=== PATIENT | male | born 1945 | race Caucasian/White ===

== ENCOUNTER 2017-11-10 06:25 | Inpatient (IN) | payer MEDICARE ==
[~2017-11-10] VITALS: Ht 182.9 cm; Wt 77.1 kg
[~2017-11-10 06:25] MED LIST: ALBU3IS INH; ALBU90OI INH; ALBU90OI6 INH; ALBU90OI61 INH; ASPI325 PO; AZIT250 PO; Duoneb 2.5-0.5 M3 ML INH; FLUT44OIA INH; GENT.3OPSA OS; HYDACE5 PO; HYDCOR2.5C PR; LOPE2C PO; Monodox100 MG PO; PRED20 PO; PROCODE120 PO; PROM25 PO; Percocet 5-3251 EACH PO; Phenergan Vc-C120 ML PO; Prednisone20 MG PO; RXTRAM50 PO; SERT25 PO; SULTRIDS PO; TRAACE PO; Ventolin5 MG/1 ML INH
[2017-11-10 07:01] LABS: BASOPHILS ABSOLUTE AUTO 0.04 K/mm3 (0.00-0.23); BASOPHILS PERCENT AUTO 1 % (0-2); EOSINOPHILS PERCENT AUTO 2 % (0-6); Hematocrit 46.7 % (37.0-53.0); Hemoglobin 14.6 g/dL (13.5-17.5); IMMATURE GRAN ABSOLUTE AUTO 0.03 K/mm3 (0.00-0.10); IMMATURE GRAN PERCENT AUTO 0 % (0-1); LYMPHOCYTES ABSOLUTE AUTO 1.52 K/mm3 (0.84-5.20); LYMPHOCYTES PERCENT AUTO 19 % (21-46); MONOCYTES PERCENT AUTO 12 % (4-13); Mean Corpuscular HGB 27.3 pg (26.0-34.0); Mean Corpuscular HGB Conc 31.3 g/dL (31.5-36.5); Mean Corpuscular Volume 87 fL (80-100); Mean Platelet Volume 10.6 fL (9.1-12.4); NEUTROPHILS ABSOLUTE AUTO 5.38 K/mm3 (1.96-9.15); NEUTROPHILS PERCENT AUTO 66 % (41-73); Platelet Count 183 K/mm3 (150-400); RDW Coefficient Variation 15.8 % (11.7-14.2); RDW Standard Deviation 50.4 fL (35.1-46.3); Red Blood Cell Count 5.35 M/mm3 (4.30-5.90); White Blood Cell Count 8.17 K/mm3 (4.00-11.30)
[2017-11-10 07:19] LABS: Alanine Aminotransfer (ALT/SGP 28 U/L (12-78); Albumin, Blood 3.2 g/dL (3.4-5.0); Albumin/Globulin Ratio 0.6 (0.8-1.8); Alk Phos 118 U/L (50-136); Anion Gap 5 mmol/L (6-16); Aspartate Aminotrans (AST/SGOT 18 U/L (12-37); Bilirubin, Total 0.2 mg/dL (0.1-1.0); Blood Urea Nitrogen 30 mg/dL (8-24); Bun/Creatinine Ratio 33.3 (12.0-20.0); CO2, Blood 29 mmol/L (21-32); Calcium, Blood 8.5 mg/dL (8.5-10.1); Chloride, Blood 106 mmol/L (98-108); Globulin, Blood 5.4 g/dL (2.2-4.0); Glomerular Filtration Rate >60 (60-); Glucose, Blood 97 mg/dL (70-99); Potassium, Blood 4.3 mmol/L (3.5-5.5); Sodium, Blood 140 mmol/L (136-145); Total Protein, Blood 8.6 g/dL (6.4-8.2)
[2017-11-10 07:51] LABS: Source, Urine Clean Catch
[2017-11-10 07:59] LABS: Bilirubin, Urine Neg (Neg); Blood, Urine 5+ (Neg); Glucose Qualitative, Urine Neg (Neg); Ketones, Urine Neg (Neg); Leukocyte Esterase, Urine 2+ (Neg); Nitrite, Urine Pos (Neg); Protein, Urine 3+ (Neg); Specific Gravity, Urine 1.025 (1.003-1.022); Urobilinogen, Urine 1+ (Normal)
[2017-11-10 08:19] LABS: Appearance, Urine Turbid (Clear); Color, Urine Yellow (P-Yellow)
[2017-11-10 08:23] LABS: Bacteria Few /hpf; Red Blood Cells, Urine TNTC /hpf (0-2); Squamous Epithelial Cells Mod /hpf (Few)
[2017-11-11 04:56] LABS: BASOPHILS ABSOLUTE AUTO 0.04 K/mm3 (0.00-0.23); BASOPHILS PERCENT AUTO 1 % (0-2); EOSINOPHILS ABSOLUTE AUTO 0.17 K/mm3 (0.00-0.68); EOSINOPHILS PERCENT AUTO 3 % (0-6); Hematocrit 43.2 % (37.0-53.0); Hemoglobin 13.3 g/dL (13.5-17.5); IMMATURE GRAN ABSOLUTE AUTO 0.03 K/mm3 (0.00-0.10); IMMATURE GRAN PERCENT AUTO 0 % (0-1); LYMPHOCYTES ABSOLUTE AUTO 1.77 K/mm3 (0.84-5.20); LYMPHOCYTES PERCENT AUTO 26 % (21-46); MONOCYTES ABSOLUTE AUTO 0.83 K/mm3 (0.16-1.47); MONOCYTES PERCENT AUTO 12 % (4-13); Mean Corpuscular HGB 26.6 pg (26.0-34.0); Mean Corpuscular HGB Conc 30.8 g/dL (31.5-36.5); Mean Corpuscular Volume 86 fL (80-100); Mean Platelet Volume 10.5 fL (9.1-12.4); NEUTROPHILS ABSOLUTE AUTO 4.05 K/mm3 (1.96-9.15); NEUTROPHILS PERCENT AUTO 59 % (41-73); Platelet Count 174 K/mm3 (150-400); RDW Coefficient Variation 15.8 % (11.7-14.2); RDW Standard Deviation 49.9 fL (35.1-46.3); White Blood Cell Count 6.89 K/mm3 (4.00-11.30)
[2017-11-11 05:22] LABS: Anion Gap 5 mmol/L (6-16); Blood Urea Nitrogen 22 mg/dL (8-24); Bun/Creatinine Ratio 26.1 (12.0-20.0); CO2, Blood 26 mmol/L (21-32); Calcium, Blood 8.1 mg/dL (8.5-10.1); Chloride, Blood 108 mmol/L (98-108); Creatinine, Blood 0.84 mg/dL (0.60-1.20); Glomerular Filtration Rate >60 (60-); Glucose, Blood 96 mg/dL (70-99); Potassium, Blood 4.4 mmol/L (3.5-5.5); Sodium, Blood 139 mmol/L (136-145)
[2017-11-12] MEDS ORDERED: ALBU90OI6 INH (10:20)
[2017-11-12] MEDS ORDERED: LEVO750 PO (10:21)
[2017-11-12] MEDS ORDERED: DELTASONE20 MG PO (10:21)
[2017-11-12] MEDS ORDERED: DULERA 100 MCG/13 GM INH (10:22)
== END 2017-11-12 11:20 | disposition home or self-care (01) | DRG 195 ==
LOC: ER 06:25 → MEDS 10:16 → SURS 10:16
PROVIDERS: Emergency Medicine; Hospitalist
DX: J18.9 Pneumonia, unspecified organism (principal); J44.9 Chronic obstructive pulmonary disease, unspecified; M89.9 Disorder of bone, unspecified; R63.4 Abnormal weight loss; S22.31XG Fracture of one rib, right side, subsequent encounter for fracture with delayed healing; W19.XXXD Unspecified fall, subsequent encounter; F17.200 Nicotine dependence, unspecified, uncomplicated; Z88.5 Allergy status to narcotic agent
CPT/HCPCS: 36415; 71260; 74177; 80048; 80053; 81001; 85025; 87086; 94640; 94760; 96374; 96375; 99285; J0456; J0696; J2405; J3480; J7050; Q9967

== ENCOUNTER 2017-12-02 14:25 | Emergency (ER) | payer MEDICARE ==
[~2017-12-02] VITALS: Ht 182.9 cm; Wt 77.1 kg
[~2017-12-02 14:25] MED LIST changes: +DELTASONE20 MG PO; +DULERA 100 MCG/13 GM INH; +LEVO750 PO
[2017-12-02 15:47] LABS: BASOPHILS ABSOLUTE AUTO 0.03 K/mm3 (0.00-0.23); BASOPHILS PERCENT AUTO 0 % (0-2); EOSINOPHILS ABSOLUTE AUTO 0.24 K/mm3 (0.00-0.68); EOSINOPHILS PERCENT AUTO 4 % (0-6); Hematocrit 47.8 % (37.0-53.0); Hemoglobin 15.1 g/dL (13.5-17.5); IMMATURE GRAN ABSOLUTE AUTO 0.02 K/mm3 (0.00-0.10); IMMATURE GRAN PERCENT AUTO 0 % (0-1); LYMPHOCYTES ABSOLUTE AUTO 1.55 K/mm3 (0.84-5.20); LYMPHOCYTES PERCENT AUTO 23 % (21-46); MONOCYTES ABSOLUTE AUTO 1.03 K/mm3 (0.16-1.47); MONOCYTES PERCENT AUTO 15 % (4-13); Mean Corpuscular HGB 27.6 pg (26.0-34.0); Mean Corpuscular HGB Conc 31.6 g/dL (31.5-36.5); Mean Corpuscular Volume 87 fL (80-100); Mean Platelet Volume 10.9 fL (9.1-12.4); NEUTROPHILS ABSOLUTE AUTO 3.98 K/mm3 (1.96-9.15); NEUTROPHILS PERCENT AUTO 58 % (41-73); Platelet Count 204 K/mm3 (150-400); RDW Coefficient Variation 16.2 % (11.7-14.2); RDW Standard Deviation 51.3 fL (35.1-46.3); Red Blood Cell Count 5.48 M/mm3 (4.30-5.90); White Blood Cell Count 6.85 K/mm3 (4.00-11.30)
[2017-12-02 16:05] LABS: Alanine Aminotransfer (ALT/SGP 29 U/L (12-78); Albumin, Blood 3.2 g/dL (3.4-5.0); Albumin/Globulin Ratio 0.6 (0.8-1.8); Alk Phos 117 U/L (50-136); Anion Gap 6 mmol/L (6-16); Aspartate Aminotrans (AST/SGOT 22 U/L (12-37); Bilirubin, Total 0.4 mg/dL (0.1-1.0); Blood Urea Nitrogen 27 mg/dL (8-24); Bun/Creatinine Ratio 34.6 (12.0-20.0); CO2, Blood 28 mmol/L (21-32); Calcium, Blood 9.2 mg/dL (8.5-10.1); Chloride, Blood 106 mmol/L (98-108); Creatinine, Blood 0.78 mg/dL (0.60-1.20); Globulin, Blood 5.3 g/dL (2.2-4.0); Glomerular Filtration Rate >60 (60-); Glucose, Blood 86 mg/dL (70-99); Potassium, Blood 4.3 mmol/L (3.5-5.5); Sodium, Blood 140 mmol/L (136-145); Total Protein, Blood 8.5 g/dL (6.4-8.2)
[2017-12-02] MEDS ORDERED: LEVO750 PO (18:13)
[2017-12-02] MEDS ORDERED: Prednisone20 MG PO (18:13)
== END 2017-12-02 18:32 | disposition home or self-care (01) ==
LOC: ER 14:25
PROVIDERS: Emergency Medicine
DX: J43.9 Emphysema, unspecified (principal); J18.9 Pneumonia, unspecified organism; F17.200 Nicotine dependence, unspecified, uncomplicated; Z88.5 Allergy status to narcotic agent; Z79.899 Other long term (current) drug therapy; Z79.52 Long term (current) use of systemic steroids
CPT/HCPCS: 36415; 71046; 80053; 85025; 93005; 93010; 94640; 96374; 99283; J2930

== ENCOUNTER 2019-01-26 11:10 | Emergency (ER) | payer MEDICARE ==
[~2019-01-26] VITALS: Ht 182.9 cm; Wt 77.1 kg
[2019-01-26] MEDS ORDERED: CITRATE OF MAG296 ML PO (15:09)
[2019-01-26] MEDS ORDERED: Colace100 MG PO (15:09)
[2019-01-26] MEDS ORDERED: LIDO700A20 TOP (15:09)
[2019-01-26] MEDS ORDERED: CYCL10 PO (15:09)
== END 2019-01-26 15:31 | disposition home or self-care (01) ==
LOC: ER 11:10
DX: K59.00 Constipation, unspecified (principal); M54.5 Low back pain; J44.9 Chronic obstructive pulmonary disease, unspecified; F17.200 Nicotine dependence, unspecified, uncomplicated; Z88.6 Allergy status to analgesic agent; Z79.899 Other long term (current) drug therapy
CPT/HCPCS: 74018; 99283-25

== ENCOUNTER 2019-11-08 13:23 | Emergency (ER) | payer MEDICARE ==
[~2019-11-08] VITALS: Ht 182.9 cm; Wt 70.8 kg
[~2019-11-08 13:23] MED LIST changes: +CITRATE OF MAG296 ML PO; +CYCL10 PO; +Colace100 MG PO; +LIDO700A20 TOP
[2019-11-08] MEDS ORDERED: TIOT18 INH (13:58)
[2019-11-08 14:28] LABS: BASOPHILS ABSOLUTE AUTO 0.04 K/mm3 (0.00-0.23); BASOPHILS PERCENT AUTO 0 % (0-2); EOSINOPHILS ABSOLUTE AUTO 0.12 K/mm3 (0.00-0.68); EOSINOPHILS PERCENT AUTO 1 % (0-6); Hematocrit 48.6 % (37.0-53.0); Hemoglobin 15.4 g/dL (13.5-17.5); IMMATURE GRAN ABSOLUTE AUTO 0.04 K/mm3 (0.00-0.10); IMMATURE GRAN PERCENT AUTO 0 % (0-1); LYMPHOCYTES ABSOLUTE AUTO 1.02 K/mm3 (0.84-5.20); LYMPHOCYTES PERCENT AUTO 11 % (21-46); MONOCYTES ABSOLUTE AUTO 1.26 K/mm3 (0.16-1.47); MONOCYTES PERCENT AUTO 13 % (4-13); Mean Corpuscular HGB 28.8 pg (26.0-34.0); Mean Corpuscular HGB Conc 31.7 g/dL (31.5-36.5); Mean Corpuscular Volume 91 fL (80-100); Mean Platelet Volume 11.3 fL (9.1-12.4); NEUTROPHILS ABSOLUTE AUTO 6.96 K/mm3 (1.96-9.15); NEUTROPHILS PERCENT AUTO 74 % (41-73); Platelet Count 167 K/mm3 (150-400); RDW Coefficient Variation 14.1 % (11.7-14.2); RDW Standard Deviation 47.9 fL (35.1-46.3); Red Blood Cell Count 5.35 M/mm3 (4.30-5.90); White Blood Cell Count 9.44 K/mm3 (4.00-11.30)
[2019-11-08 14:48] LABS: Alanine Aminotransfer (ALT/SGP 43 U/L (12-78); Albumin, Blood 3.3 g/dL (3.4-5.0); Albumin/Globulin Ratio 0.8 (0.8-1.8); Alk Phos 122 U/L (50-136); Anion Gap 2 mmol/L (6-16); Aspartate Aminotrans (AST/SGOT 29 U/L (12-37); Bilirubin, Total 0.5 mg/dL (0.1-1.0); Blood Urea Nitrogen 23 mg/dL (8-24); Bun/Creatinine Ratio 24.8 (12.0-20.0); CO2, Blood 28 mmol/L (21-32); Calcium, Blood 8.8 mg/dL (8.5-10.1); Chloride, Blood 106 mmol/L (98-108); Creatinine, Blood 0.93 mg/dL (0.60-1.20); Globulin, Blood 4.3 g/dL (2.2-4.0); Glomerular Filtration Rate >60 (60-); Glucose, Blood 99 mg/dL (70-99); Potassium, Blood 4.7 mmol/L (3.5-5.5); Sodium, Blood 136 mmol/L (136-145); Total Protein, Blood 7.6 g/dL (6.4-8.2); Troponin I <0.015 ng/mL (0.000-0.040)
[2019-11-08] MEDS ORDERED: PRED10 PO (15:40)
== END 2019-11-08 15:55 | disposition home or self-care (01) ==
LOC: ER 13:23
PROVIDERS: Emergency Medicine
DX: J44.9 Chronic obstructive pulmonary disease, unspecified (principal); F17.200 Nicotine dependence, unspecified, uncomplicated; Z88.5 Allergy status to narcotic agent
CPT/HCPCS: 36415; 71046; 80053; 83880; 84484; 85025; 93005; 93010; 99284-25; J7512

== ENCOUNTER 2020-01-26 15:24 | Emergency (ER) | payer MEDICARE, OTHER ==
[~2020-01-26] VITALS: Ht 182.9 cm; Wt 68.1 kg
[~2020-01-26 15:24] MED LIST changes: +PRED10 PO; +TIOT18 INH
[2020-01-26 16:11] LABS: BASOPHILS ABSOLUTE AUTO 0.05 K/mm3 (0.00-0.23); BASOPHILS PERCENT AUTO 1 % (0-2); EOSINOPHILS ABSOLUTE AUTO 0.06 K/mm3 (0.00-0.68); EOSINOPHILS PERCENT AUTO 1 % (0-6); Hematocrit 50.5 % (37.0-53.0); Hemoglobin 16.3 g/dL (13.5-17.5); IMMATURE GRAN ABSOLUTE AUTO 0.02 K/mm3 (0.00-0.10); IMMATURE GRAN PERCENT AUTO 0 % (0-1); LYMPHOCYTES ABSOLUTE AUTO 0.82 K/mm3 (0.84-5.20); LYMPHOCYTES PERCENT AUTO 11 % (21-46); MONOCYTES ABSOLUTE AUTO 0.74 K/mm3 (0.16-1.47); MONOCYTES PERCENT AUTO 10 % (4-13); Mean Corpuscular HGB Conc 32.3 g/dL (31.5-36.5); Mean Corpuscular Volume 90 fL (80-100); Mean Platelet Volume 11.2 fL (9.1-12.4); NEUTROPHILS ABSOLUTE AUTO 5.93 K/mm3 (1.96-9.15); NEUTROPHILS PERCENT AUTO 78 % (41-73); Platelet Count 203 K/mm3 (150-400); RDW Coefficient Variation 13.6 % (11.7-14.2); RDW Standard Deviation 45.2 fL (35.1-46.3); Red Blood Cell Count 5.62 M/mm3 (4.30-5.90); White Blood Cell Count 7.62 K/mm3 (4.00-11.30)
[2020-01-26 16:34] LABS: Alanine Aminotransfer (ALT/SGP 33 U/L (12-78); Albumin, Blood 3.7 g/dL (3.4-5.0); Albumin/Globulin Ratio 0.9 (0.8-1.8); Alk Phos 117 U/L (50-136); Anion Gap 4 mmol/L (6-16); Aspartate Aminotrans (AST/SGOT 21 U/L (12-37); Bilirubin, Total 0.6 mg/dL (0.1-1.0); Blood Urea Nitrogen 32 mg/dL (8-24); Bun/Creatinine Ratio 31.1 (12.0-20.0); CO2, Blood 25 mmol/L (21-32); Calcium, Blood 8.9 mg/dL (8.5-10.1); Chloride, Blood 109 mmol/L (98-108); Creatinine, Blood 1.03 mg/dL (0.60-1.20); Glomerular Filtration Rate >60 (60-); Glucose, Blood 194 mg/dL (70-99); Sodium, Blood 138 mmol/L (136-145); Total Protein, Blood 7.7 g/dL (6.4-8.2)
[2020-01-26 16:54] LABS: Source, Urine Voided
[2020-01-26 16:58] LABS: Bilirubin, Urine Neg (Neg); Blood, Urine 4+ (Neg); Glucose Qualitative, Urine Neg (Neg); Ketones, Urine 1+ (Neg); Leukocyte Esterase, Urine 1+ (Neg); Nitrite, Urine Neg (Neg); Protein, Urine 2+ (Neg); Specific Gravity, Urine 1.025 (1.003-1.022); Urobilinogen, Urine 2+ (Normal)
[2020-01-26] MEDS ORDERED: TUDORZA PRESS400 MCG INH (17:13)
[2020-01-26 17:15] LABS: Appearance, Urine Hazy (Clear); Color, Urine Yellow (P-Yellow)
[2020-01-26 17:17] LABS: Squamous Epithelial Cells Mod /hpf (Few)
[2020-01-26 17:18] LABS: Bacteria Mod /hpf; Calcium Oxalate Crystals Few /hpf; Mucus Light (0-Heavy)
[2020-01-26] MEDS ORDERED: Magnesium Citr296 ML PO (17:58)
[2020-01-26] MEDS ORDERED: CEPH500 PO (17:58)
[2020-01-26] MEDS ORDERED: Magic Bullet10 MG PR (17:58)
== END 2020-01-26 18:07 | disposition home or self-care (01) ==
LOC: ER 15:24
PROVIDERS: Emergency Medicine
DX: N39.0 Urinary tract infection, site not specified (principal); K59.00 Constipation, unspecified; J44.9 Chronic obstructive pulmonary disease, unspecified; Z87.01 Personal history of pneumonia (recurrent); F17.210 Nicotine dependence, cigarettes, uncomplicated; Z88.5 Allergy status to narcotic agent; Z79.899 Other long term (current) drug therapy
CPT/HCPCS: 36415; 74177; 80053; 81001; 83690; 85025; 87086; 93005; 93010; 96374-59; 96375; 99284-25; J1885; J2270; J2405; J7030; Q9967

== ENCOUNTER 2020-02-26 15:28 | Observation (INO) | payer MEDICARE ==
[~2020-02-26] VITALS: Ht 182.9 cm; Wt 63.5 kg
[~2020-02-26 15:28] MED LIST changes: +CEPH500 PO; +Magic Bullet10 MG PR; +Magnesium Citr296 ML PO; +TUDORZA PRESS400 MCG INH
[2020-02-26 16:00] LABS: BASOPHILS ABSOLUTE AUTO 0.04 K/mm3 (0.00-0.23); BASOPHILS PERCENT AUTO 1 % (0-2); EOSINOPHILS ABSOLUTE AUTO 0.13 K/mm3 (0.00-0.68); EOSINOPHILS PERCENT AUTO 2 % (0-6); Hematocrit 46.5 % (37.0-53.0); Hemoglobin 15.4 g/dL (13.5-17.5); IMMATURE GRAN ABSOLUTE AUTO 0.02 K/mm3 (0.00-0.10); IMMATURE GRAN PERCENT AUTO 0 % (0-1); LYMPHOCYTES ABSOLUTE AUTO 0.99 K/mm3 (0.84-5.20); LYMPHOCYTES PERCENT AUTO 12 % (21-46); MONOCYTES ABSOLUTE AUTO 1.11 K/mm3 (0.16-1.47); MONOCYTES PERCENT AUTO 13 % (4-13); Mean Corpuscular HGB Conc 33.1 g/dL (31.5-36.5); Mean Corpuscular Volume 88 fL (80-100); Mean Platelet Volume 10.8 fL (9.1-12.4); NEUTROPHILS ABSOLUTE AUTO 6.34 K/mm3 (1.96-9.15); NEUTROPHILS PERCENT AUTO 73 % (41-73); Platelet Count 196 K/mm3 (150-400); RDW Coefficient Variation 13.5 % (11.7-14.2); RDW Standard Deviation 43.9 fL (35.1-46.3); Red Blood Cell Count 5.31 M/mm3 (4.30-5.90); White Blood Cell Count 8.63 K/mm3 (4.00-11.30)
[2020-02-26 16:22] LABS: Alanine Aminotransfer (ALT/SGP 28 U/L (12-78); Albumin, Blood 3.8 g/dL (3.4-5.0); Alk Phos 102 U/L (50-136); Anion Gap 6 mmol/L (6-16); Aspartate Aminotrans (AST/SGOT 28 U/L (12-37); Blood Urea Nitrogen 19 mg/dL (8-24); Bun/Creatinine Ratio 22.6 (12.0-20.0); CO2, Blood 27 mmol/L (21-32); Calcium, Blood 8.9 mg/dL (8.5-10.1); Chloride, Blood 101 mmol/L (98-108); Creatinine, Blood 0.84 mg/dL (0.60-1.20); Globulin, Blood 3.7 g/dL (2.2-4.0); Glomerular Filtration Rate >60 (60-); Glucose, Blood 100 mg/dL (70-99); Potassium, Blood 4.3 mmol/L (3.5-5.5); Sodium, Blood 134 mmol/L (136-145); Total Protein, Blood 7.5 g/dL (6.4-8.2)
--- NOTE | 2020-02-26 21:43 | NUR ---
PATIENT BROUGHT INTO DAY SURGERY DEPARTMENT. PROCEDURE POSTPONED DUE TO PATIENT ACTIVELY DRINKING WATER WHEN PICKED UP FROM ER. PATIENT TO TRANSFER TO ROOM 213. WILL CALL REPORT TO SURGICAL FLOOR NURSE.
[2020-02-27 04:23] LABS: BASOPHILS ABSOLUTE AUTO 0.03 K/mm3 (0.00-0.23); BASOPHILS PERCENT AUTO 1 % (0-2); EOSINOPHILS ABSOLUTE AUTO 0.11 K/mm3 (0.00-0.68); EOSINOPHILS PERCENT AUTO 2 % (0-6); Hematocrit 45.1 % (37.0-53.0); Hemoglobin 14.8 g/dL (13.5-17.5); IMMATURE GRAN ABSOLUTE AUTO 0.01 K/mm3 (0.00-0.10); IMMATURE GRAN PERCENT AUTO 0 % (0-1); LYMPHOCYTES ABSOLUTE AUTO 0.77 K/mm3 (0.84-5.20); LYMPHOCYTES PERCENT AUTO 12 % (21-46); MONOCYTES ABSOLUTE AUTO 0.95 K/mm3 (0.16-1.47); MONOCYTES PERCENT AUTO 15 % (4-13); Mean Corpuscular HGB 29.1 pg (26.0-34.0); Mean Corpuscular HGB Conc 32.8 g/dL (31.5-36.5); Mean Corpuscular Volume 89 fL (80-100); Mean Platelet Volume 11.1 fL (9.1-12.4); NEUTROPHILS ABSOLUTE AUTO 4.58 K/mm3 (1.96-9.15); NEUTROPHILS PERCENT AUTO 71 % (41-73); Platelet Count 157 K/mm3 (150-400); RDW Coefficient Variation 13.5 % (11.7-14.2); RDW Standard Deviation 44.1 fL (35.1-46.3); Red Blood Cell Count 5.09 M/mm3 (4.30-5.90); White Blood Cell Count 6.45 K/mm3 (4.00-11.30)
[2020-02-27 04:41] LABS: Alanine Aminotransfer (ALT/SGP 23 U/L (12-78); Albumin, Blood 3.3 g/dL (3.4-5.0); Albumin/Globulin Ratio 0.9 (0.8-1.8); Alk Phos 95 U/L (50-136); Anion Gap 9 mmol/L (6-16); Aspartate Aminotrans (AST/SGOT 23 U/L (12-37); Blood Urea Nitrogen 14 mg/dL (8-24); Bun/Creatinine Ratio 17.9 (12.0-20.0); CO2, Blood 25 mmol/L (21-32); Calcium, Blood 8.6 mg/dL (8.5-10.1); Chloride, Blood 103 mmol/L (98-108); Creatinine, Blood 0.78 mg/dL (0.60-1.20); Globulin, Blood 3.5 g/dL (2.2-4.0); Glomerular Filtration Rate >60 (60-); Glucose, Blood 78 mg/dL (70-99); Sodium, Blood 137 mmol/L (136-145); Total Protein, Blood 6.8 g/dL (6.4-8.2)
--- NOTE | 2020-02-27 04:49 | NUR ---
SHIFT SUMMARY PT NEW ADMIT THIS SHIFT. AAOX4. NPO THIS AM FOR SCHEDULE UPPER SCOPE. VS NOTED. TELEMTRY IN PLACE, NSR TO ST 90s TO 100s. INDEPENDENT IN ROOM. DENIES ACUTE SOB OR DIFFICULTY SWALLOWING STATING "I NORMALLY HAVE DIFFICULTY BREATHING WITH MOVEMENT AT HOME." LUNG SOUNDS EXP WHEEZE/DIMINISHED THIS AM POST AMBULATION TO RESTROOM, RT IN ROOM TO ADMINISTER BREATHING TX. PT RESTED WELL T/O MORNING. ORIENTED TO ROOM + DEMONSTRATED CALL LIGHT USE. PT CURRENTLY RESTING AT THIS TIME, NADN, WITH CALL LIGHT IN REACH.
--- NOTE | 2020-02-27 08:09 | NUR ---
PT TRANSFERED TO [facility] FROM SURGICAL FLOOR VIA GURNEY. History, Chart, Medications and Allergies reviewed before start of procedure. Patient confirms NPO status and agrees with scheduled surgery.
--- NOTE | 2020-02-27 08:10 | NUR ---
PT TAKEN TO EGD
--- NOTE | 2020-02-27 08:29 | NUR ---
02/27/20 0829 ELIZABETH BONILLA History, Chart, Medications and Allergies reviewed before start of procedure. 3-LEAD EKG REVIEWED WITH PHYSICIAN PRIOR TO START OF PROCEDURE. O2 VIA N/C INTACT THROUGHOUT SEDATION/PROCEDURE. MONITOR INTACT WITH CONTINUOUS PULSE OXIMETRY AND INTERMITTENT BP. MAC WITH DR. MICHAELS.
--- NOTE | 2020-02-27 08:53 | NUR ---
DR. HECK SPEAKING WITH PT REGARDING PROCEDURE RESULTS.
[2020-02-27] MEDS ORDERED: AIRDUO RESPICL1 EAC2 INH (14:04)
[2020-02-27] MEDS ORDERED: ALBU90OI INH (14:08)
--- NOTE | 2020-02-27 14:32 | NUR ---
DISCHARGE SUMMARY PT A&OX4, VSS, LEFT FLOOR VIA WC WITH ALL PERSONAL POSSESSIONS TO GO HOME WITH FRIEND, INCLUDING DC PACKET. SCRIPTS FAXED TO KYLIE MCC[facility]E. DC INSTRUCTIONS PROVIDED. PT REP UNDERSTANDING THOSE INSTRUCTIONS INCLUDING FU WITH DR HECK AND PCP. IV DC'D.
== END 2020-02-27 14:26 | disposition home or self-care (01) ==
LOC: ER 15:28 → SURS 15:29
PROVIDERS: Internal Medicine; Physician Assistant; ADMIT Internal Medicine Gastroenterology
PROC: 0D758ZZ Dilation of Esophagus, Via Natural or Artificial Opening Endoscopic (ICD-10-PCS; principal; 2020-02-27 08:30)
PROC: 0DB68ZX Excision of Stomach, Via Natural or Artificial Opening Endoscopic, Diagnostic (ICD-10-PCS; principal; 2020-02-27 08:30)
DX: K25.9 Gastric ulcer, unspecified as acute or chronic, without hemorrhage or perforation (principal); I11.9 Hypertensive heart disease without heart failure; J44.9 Chronic obstructive pulmonary disease, unspecified; M80.88XA Other osteoporosis with current pathological fracture, vertebra(e), initial encounter for fracture; F17.210 Nicotine dependence, cigarettes, uncomplicated; Z88.5 Allergy status to narcotic agent; Z79.899 Other long term (current) drug therapy
CPT/HCPCS: 36415; 70491; 71046; 80053; 85025; 94640; 94760; 96360-59; 96361-59; 96372; 99285-25; G0378; J1644; J2704; J7030; J7120; Q9967

== ENCOUNTER 2020-09-26 11:22 | Inpatient (IN) | payer OTHER, MEDICARE ==
[~2020-09-26] VITALS: Ht 177.8 cm; Wt 71.0 kg
[~2020-09-26 11:22] MED LIST changes: +AIRDUO RESPICL1 EAC4 INH; +TUDORZA PRESS400 MC1 INH; -TUDORZA PRESS400 MCG INH
[2020-09-26 11:57] LABS: BASOPHILS ABSOLUTE AUTO 0.04 K/mm3 (0.00-0.23); BASOPHILS PERCENT AUTO 0 % (0-2); EOSINOPHILS ABSOLUTE AUTO 0.21 K/mm3 (0.00-0.68); EOSINOPHILS PERCENT AUTO 1 % (0-6); Hematocrit 42.4 % (37.0-53.0); Hemoglobin 13.3 g/dL (13.5-17.5); IMMATURE GRAN ABSOLUTE AUTO 0.24 K/mm3 (0.00-0.10); IMMATURE GRAN PERCENT AUTO 1 % (0-1); LYMPHOCYTES ABSOLUTE AUTO 0.71 K/mm3 (0.84-5.20); LYMPHOCYTES PERCENT AUTO 4 % (21-46); MONOCYTES ABSOLUTE AUTO 1.89 K/mm3 (0.16-1.47); MONOCYTES PERCENT AUTO 10 % (4-13); Mean Corpuscular HGB 28.1 pg (26.0-34.0); Mean Corpuscular HGB Conc 31.4 g/dL (31.5-36.5); Mean Corpuscular Volume 90 fL (80-100); NEUTROPHILS ABSOLUTE AUTO 15.51 K/mm3 (1.96-9.15); NEUTROPHILS PERCENT AUTO 83 % (41-73); Platelet Count 347 K/mm3 (150-400); RDW Coefficient Variation 14.1 % (11.7-14.2); RDW Standard Deviation 45.8 fL (35.1-46.3); Red Blood Cell Count 4.74 M/mm3 (4.30-5.90)
[2020-09-26 12:12] LABS: International Normalized Ratio 1.12; Prothrombin Time Results 11.9 Sec (9.7-11.5)
[2020-09-26 12:27] LABS: Alanine Aminotransfer (ALT/SGP 75 U/L (12-78); Albumin/Globulin Ratio 0.4 (0.8-1.8); Alk Phos 252 U/L (50-136); Anion Gap 6 mmol/L (6-16); Aspartate Aminotrans (AST/SGOT 57 U/L (12-37); Bilirubin, Total 0.7 mg/dL (0.1-1.0); Blood Urea Nitrogen 21 mg/dL (8-24); CO2, Blood 28 mmol/L (21-32); Calcium, Blood 8.5 mg/dL (8.5-10.1); Chloride, Blood 103 mmol/L (98-108); Creatinine, Blood 0.75 mg/dL (0.60-1.20); Globulin, Blood 5.1 g/dL (2.2-4.0); Glomerular Filtration Rate >60 (60-); Glucose, Blood 138 mg/dL (70-99); Magnesium, Blood 2.1 mg/dL (1.6-2.4); Potassium, Blood 3.7 mmol/L (3.5-5.5); Sodium, Blood 137 mmol/L (136-145); Total Protein, Blood 7.1 g/dL (6.4-8.2); Troponin I <0.015 ng/mL (0.000-0.040)
[2020-09-26 17:19] LABS: Source, Urine Clean Catch
[2020-09-26 17:24] LABS: Appearance, Urine Clear (Clear); Bilirubin, Urine Neg (Neg); Blood, Urine 5+ (Neg); Color, Urine Amber (P-Yellow); Glucose Qualitative, Urine Neg (Neg); Ketones, Urine Neg (Neg); Leukocyte Esterase, Urine 1+ (Neg); Nitrite, Urine Neg (Neg); Protein, Urine 2+ (Neg); Specific Gravity, Urine 1.025 (1.003-1.022); Urobilinogen, Urine 3+ (Normal)
[2020-09-26 17:34] LABS: Influenza A, PCR Negative (NEGATIVE); Influenza B, PCR Negative (NEGATIVE); Resp Syncytial Virus, PCR Negative (NEGATIVE); SARS-Cov-2 (COVID-19) PCR, MMC Negative (NEGATIVE)
[2020-09-26 17:44] LABS: Bacteria Rare /hpf; Squamous Epithelial Cells Rare /hpf (Few)
[2020-09-26 17:45] LABS: Calcium Oxalate Crystals Rare /hpf
--- NOTE | 2020-09-27 00:33 | NUR ---
PATIENT ARRIVED TO ROOM 352 AT 0 VIA STRETCHER. PATIENT IS ALERT AND ORIENTED X4. PLEASANT BUT QUITE HARD OF HEARING. PUPILS ARE EQUAL, ROUND, AND REACTIVE. LEFT SIDE DEFICIT PRESENT IN THE FORM OF STRENGTH BUT PATIENT HAS FULL USE OF HIS LEFT SIDE.
[2020-09-27 00:51] LABS: Adenovirus Not Detected (NOT DETECT); Bordetella pertussis Not Detected (NOT DETECT); Chlamydophila pneumoniae Not Detected (NOT DETECT); Coronavirus 229E Not Detected (NOT DETECT); Coronavirus HKU1 Not Detected (NOT DETECT); Coronavirus NL63 Not Detected (NOT DETECT); Coronavirus OC43 Not Detected (NOT DETECT); Human Metapneumovirus Not Detected (NOT DETECT); Human Rhinovirus/Enterovirus Not Detected (NOT DETECT); Influenza A/2009-H1 Not Detected (NOT DETECT); Influenza A/H1 Not Detected (NOT DETECT); Influenza A/H3 Not Detected (NOT DETECT); Influenza B Not Detected (NOT DETECT); Mycoplasma pneumoniae Not Detected (NOT DETECT); Parainfluenza Virus 1 Not Detected (NOT DETECT); Parainfluenza Virus 2 Not Detected (NOT DETECT); Parainfluenza Virus 3 Not Detected (NOT DETECT); Parainfluenza Virus 4 Not Detected (NOT DETECT); Respiratory Syncytial Virus Not Detected (NOT DETECT); SARS-Cov-2 (COVID-19), BioFire Not Detected (NOT DETECT)
[2020-09-27 05:13] LABS: BASOPHILS ABSOLUTE AUTO 0.03 K/mm3 (0.00-0.23); BASOPHILS PERCENT AUTO 0 % (0-2); EOSINOPHILS PERCENT AUTO 0 % (0-6); Hematocrit 47.3 % (37.0-53.0); Hemoglobin 14.4 g/dL (13.5-17.5); IMMATURE GRAN ABSOLUTE AUTO 0.18 K/mm3 (0.00-0.10); IMMATURE GRAN PERCENT AUTO 1 % (0-1); LYMPHOCYTES ABSOLUTE AUTO 0.46 K/mm3 (0.84-5.20); LYMPHOCYTES PERCENT AUTO 3 % (21-46); MONOCYTES ABSOLUTE AUTO 0.26 K/mm3 (0.16-1.47); MONOCYTES PERCENT AUTO 2 % (4-13); Mean Corpuscular HGB 27.5 pg (26.0-34.0); Mean Corpuscular HGB Conc 30.4 g/dL (31.5-36.5); Mean Corpuscular Volume 90 fL (80-100); Mean Platelet Volume 10.2 fL (9.1-12.4); NEUTROPHILS ABSOLUTE AUTO 12.91 K/mm3 (1.96-9.15); NEUTROPHILS PERCENT AUTO 93 % (41-73); Platelet Count 397 K/mm3 (150-400); RDW Coefficient Variation 13.9 % (11.7-14.2); RDW Standard Deviation 46.8 fL (35.1-46.3); Red Blood Cell Count 5.24 M/mm3 (4.30-5.90); White Blood Cell Count 13.84 K/mm3 (4.00-11.30)
[2020-09-27 05:33] LABS: Alanine Aminotransfer (ALT/SGP 66 U/L (12-78); Albumin, Blood 1.9 g/dL (3.4-5.0); Albumin/Globulin Ratio 0.4 (0.8-1.8); Alk Phos 232 U/L (50-136); Anion Gap 4 mmol/L (6-16); Aspartate Aminotrans (AST/SGOT 33 U/L (12-37); Bilirubin, Total 0.5 mg/dL (0.1-1.0); Blood Urea Nitrogen 28 mg/dL (8-24); Bun/Creatinine Ratio 34.7 (12.0-20.0); CO2, Blood 32 mmol/L (21-32); Calcium, Blood 8.7 mg/dL (8.5-10.1); Chloride, Blood 106 mmol/L (98-108); Creatinine, Blood 0.81 mg/dL (0.60-1.20); Globulin, Blood 5.2 g/dL (2.2-4.0); Glomerular Filtration Rate >60 (60-); Glucose, Blood 200 mg/dL (70-99); Potassium, Blood 3.9 mmol/L (3.5-5.5); Sodium, Blood 142 mmol/L (136-145); Total Protein, Blood 7.1 g/dL (6.4-8.2)
--- NOTE | 2020-09-27 06:14 | NUR ---
SHIFT SUMMARY PATIENT ALERT AND ORIENTED. HAD NO COMPLAINTS OF CHEST PAIN OVERNIGHT. SPUTUM SAMPLE OBTAINED AND SENT TO THE LAB. PATIENT WAS ABLE TO SLEEP FAIRLY WELL OVERNIGHT. IV PATENT AND INFUSING WITH NORMAL SALINE AT 100 ML/HR. BED IN LOWEST POSITION WITH WHEELS LOCKED. CALL LIGHT WITHIN REACH. REPORT GIVEN TO ONCOMING RN.
--- NOTE | 2020-09-27 12:07 | NUR ---
Echocardiogram performed by Humaira Webber under my supervision.
--- NOTE | 2020-09-27 18:50 | NUR ---
Amador appeared aggitated when I entered room. Provided theraputic listening and redirection to good effect. Combed the knots out of his hair while we spoke and this appeared to calm him. He was smiling and telling little jokes by end of visit. His thinking seemed a bit scattered. I will remain available.
--- NOTE | 2020-09-27 19:59 | NUR ---
SHIFT SUMMARY PT RESTING QUIETLY AT START OF SHIFT. WOKE EASILY FOR CARE IN AM. PT VERY ANGRY AT THE WORLD AND EVERYTHING AROUND HIM. PT VERY AGITATED AT START OF SHIFT BEING NPO FOR SWALLOW EVAL. PT CALLED TO COMPLAIN. THEN CALLED UPSET THAT HE WAS NOT GIVEN FOOD OR WATER. PROTOCOL EXPLAINED TO AND PT. SP TX IN TO SEE PT, BUT PT VERY GRUMPY AND RUDE TO ALL STAFF. PT NONCOMPLIANT WITH CALLING FOR ASSIST TO GET OOB OR TO THE CHAIR. PT/OT IN TO WORK WITH PT; PT ABLE TO STAND AT BS AND PIVOT TO CHAIR FOR MEALS. PT WANTING TO GO HOME. DR SANTANA AND APPLICATION SPECIALIST NOTIFIED. POSSIBLE D/C IN AM IF PT CONTINUES TO IMPROVE. PT TALKED ON PHONE THRU OUT THE DAY TO FAMILY. UP TO BSC FOR BM; PT REPORTED THAT HE WOULDN'T MAKE IT TO THE BATHRM. CALL LT IN REACH. ABLE TO MAKE NEEDS KNOWN.
--- NOTE | 2020-09-27 22:01 | NUR ---
PATIENT INCREASED AGITATION. YELLING AND SCREAMING. BED EXIT ATTEMPT. NOT FOLLOWING DIRECTIONS AT THIS TIME. BED ALARM ACTIVATED.
--- NOTE | 2020-09-28 02:50 | NUR ---
PATIENT ON PHONE AND INCREASE AGITATION. EVERY PHONE CALL HE MAKES HE HAS INCREASE AGITATION WITH PERSON ON PHONE. WILL CONTINUE TO MONITOR.
--- NOTE | 2020-09-28 05:10 | NUR ---
SHIFT SUMMARY PATIENT AGITATED AT START OF SHIFT AND THROUGH OUT NIGHT. ABLE TO CALM DOWN A FEW TIMES AND RT IN FOR BREATHING TX. AXOX 2-3 AND TWO ASSIST TO BSC. USES URINAL AT BEDSIDE. PATIENT AGITATED WHEN HE JUMPED UP OUT OF BED AND WANTED TO HEAD TO BR INDEPENDENTLY. PATIENT REMINDED HE NEEDED MANAGER COMMERCIAL REAL ESTATE TO BR. HE YELLED AND SCREAM HE COULD DO IT ON HIS OWN. HE THAN THREW PARTIALLY FULL URINAL ON FLOOR AND ASKED FOR STAFF TO STAY AWAY FROM HIM. PATIENT HAD INCREASED AGITATION WHEN HE WAS ON PHONE ALL HOURS OF SHIFT YELLING AT PERSON ON RECEIVING END OF PHONE. HE REPORTED HE WANTED THE [employer] TO INVESTIGATE WHO IS CALLING AND ASKING FOR INFORMATION ABOUT HIM. PIV REMAINS INTACT. IV SOLU-MEDROL GIVEN PER EMAR. SUPERVISOR LENS GENERATING REPORTS ST 101. DENIES PAIN AND N/V. SOB WITH EXERTION AND WHEN HE YELLS/SCREAMS. PLACED ON 2L O2 NC PRN. VSS/AFEBRILE. CALL LIGHT IN REACH. BED IN LOWEST POSITION AND ALARM ACTIVATED. WILL CONTINUE TO MONITOR UNTIL DAY SHIFT NURSE ASSUMES CARE.
[2020-09-28 05:16] LABS: BASOPHILS ABSOLUTE AUTO 0.05 K/mm3 (0.00-0.23); BASOPHILS PERCENT AUTO 0 % (0-2); EOSINOPHILS PERCENT AUTO 0 % (0-6); Hematocrit 42.3 % (37.0-53.0); IMMATURE GRAN PERCENT AUTO 2 % (0-1); LYMPHOCYTES ABSOLUTE AUTO 0.59 K/mm3 (0.84-5.20); LYMPHOCYTES PERCENT AUTO 2 % (21-46); MONOCYTES ABSOLUTE AUTO 1.13 K/mm3 (0.16-1.47); MONOCYTES PERCENT AUTO 4 % (4-13); Mean Corpuscular HGB 27.5 pg (26.0-34.0); Mean Corpuscular HGB Conc 30.7 g/dL (31.5-36.5); Mean Corpuscular Volume 90 fL (80-100); Mean Platelet Volume 10.1 fL (9.1-12.4); NEUTROPHILS ABSOLUTE AUTO 23.62 K/mm3 (1.96-9.15); NEUTROPHILS PERCENT AUTO 92 % (41-73); Platelet Count 423 K/mm3 (150-400); RDW Standard Deviation 46.2 fL (35.1-46.3); Red Blood Cell Count 4.72 M/mm3 (4.30-5.90); White Blood Cell Count 25.79 K/mm3 (4.00-11.30)
[2020-09-28 05:25] LABS: Alanine Aminotransfer (ALT/SGP 78 U/L (12-78); Albumin/Globulin Ratio 0.4 (0.8-1.8); Alk Phos 201 U/L (50-136); Anion Gap 2 mmol/L (6-16); Aspartate Aminotrans (AST/SGOT 48 U/L (12-37); Bilirubin, Total 0.3 mg/dL (0.1-1.0); Blood Urea Nitrogen 36 mg/dL (8-24); Bun/Creatinine Ratio 48.6 (12.0-20.0); CO2, Blood 31 mmol/L (21-32); Calcium, Blood 8.5 mg/dL (8.5-10.1); Chloride, Blood 108 mmol/L (98-108); Creatinine, Blood 0.74 mg/dL (0.60-1.20); Globulin, Blood 4.5 g/dL (2.2-4.0); Glomerular Filtration Rate >60 (60-); Glucose, Blood 157 mg/dL (70-99); Potassium, Blood 4.1 mmol/L (3.5-5.5); Sodium, Blood 141 mmol/L (136-145); Total Protein, Blood 6.5 g/dL (6.4-8.2)
[2020-09-28] MEDS ORDERED: ASPI81CH PO (14:00)
[2020-09-28] MEDS ORDERED: ACET325 PO (14:00)
[2020-09-28] MEDS ORDERED: LEVO750 PO (14:02)
[2020-09-28] MEDS ORDERED: ATOR80 PO (14:02)
[2020-09-28] MEDS ORDERED: CLOP75 PO (14:03)
[2020-09-28] MEDS ORDERED: VISBIOME PO (14:04)
--- NOTE | 2020-09-28 16:36 | NUR ---
PT DISCHARGED TODAY EVEN THOUGH DR SANTANA STRONGLY RECOMMENDED PT TO STAY FOR ANTIBOTIC TREATMENT. PT'S MIND COULD NOT BE CHANGED AND PT INSISTED ON GOING HOME. ALL PAPER WORK WAS REVIEWED AND APPOINTMENT WAS SCHEDULED FOR PT FOR FOLLOW UP AT HIS PCP. PT HAD MEDICATIONS FAXED FOR HIM TO PHARMACY. PT STATED HE HAD A RIDE AND WAS INSTRUCTED TO HAVE FRIEND LET DESK DOWN STAIRS KNOW WHEN HE ARRIVED. PT BE CAME VERY AGITATED STATING HE MISSED HIS RIDE BECAUSE HE COULD NOT WATCH FOR HIS FRIEND. DISCUSSED WITH PT THAT THE AID WOULD NOT BE ABLE TO STAY FOR TO LONG DOWN STAIRS AND OFFERED TO CALL A CAB IF HE THOUGHT HE MISSED HIS RIDE. PT GOT UPSET AND SAID HE JUST WANTED TO BE TAKEN DOWN STAIRS. AFTER WAITING 30MIN AID RETURNED PRIOR TO THIS PT REQUESTED CAB AND WAS PICKED UP AFTER AID HAD TO LEAVE. PT HAD HIS EDUCATIONAL MATERIAL IN PACKET AND SCRIPT TO GET LABS AND CHEST XRAY PRIOR TO PCP FOLLOW UP.
== END 2020-09-28 15:24 | disposition home or self-care (01) | DRG 291 ==
LOC: ER 11:22 → MEDS 16:11
PROVIDERS: Family Medicine; Physician Assistant; ADMIT Internal Medicine
DX: I11.0 Hypertensive heart disease with heart failure (principal); I50.31 Acute diastolic (congestive) heart failure; J96.21 Acute and chronic respiratory failure with hypoxia; I63.9 Cerebral infarction, unspecified; J18.9 Pneumonia, unspecified organism; R64 Cachexia; Z20.828 Contact with and (suspected) exposure to other viral communicable diseases; J43.9 Emphysema, unspecified; I34.0 Nonrheumatic mitral (valve) insufficiency; F17.210 Nicotine dependence, cigarettes, uncomplicated; Z68.22 Body mass index [BMI] 22.0-22.9, adult
CPT/HCPCS: 0202U; 0241U; 36415; 70450; 71045; 71046; 71260; 80053; 81001; 83605; 83735; 83880; 84484; 85025; 85610; 87040; 87070; 87086; 87205; 92610; 93005; 93010; 93306; 93880; 94640; 94664; 94760; 96365; 96366; 96368; 96375; 97162; 97166; 97530; 97535; 99285-25; A9270-GY; J0456; J0696; J1650; J2930; J7030; J7050; Q9967

== ENCOUNTER 2021-05-02 11:59 | Emergency (ER) | payer MEDICARE ==
[~2021-05-02] VITALS: Ht 182.9 cm; Wt 59.0 kg
[~2021-05-02 11:59] MED LIST changes: +ACET325 PO; +ASPI81CH PO; +ATOR80 PO; +CLOP75 PO; +VISBIOME PO
[2021-05-02 13:12] LABS: BASOPHILS ABSOLUTE AUTO 0.04 K/mm3 (0.00-0.23); BASOPHILS PERCENT AUTO 0 % (0-2); EOSINOPHILS ABSOLUTE AUTO 0.01 K/mm3 (0.00-0.68); EOSINOPHILS PERCENT AUTO 0 % (0-6); Hematocrit 44.2 % (37.0-53.0); Hemoglobin 14.1 g/dL (13.5-17.5); IMMATURE GRAN ABSOLUTE AUTO 0.16 K/mm3 (0.00-0.10); IMMATURE GRAN PERCENT AUTO 1 % (0-1); LYMPHOCYTES ABSOLUTE AUTO 0.81 K/mm3 (0.84-5.20); LYMPHOCYTES PERCENT AUTO 6 % (21-46); MONOCYTES ABSOLUTE AUTO 1.22 K/mm3 (0.16-1.47); MONOCYTES PERCENT AUTO 9 % (4-13); Mean Corpuscular HGB 27.8 pg (26.0-34.0); Mean Corpuscular HGB Conc 31.9 g/dL (31.5-36.5); Mean Corpuscular Volume 87 fL (80-100); Mean Platelet Volume 10.1 fL (9.1-12.4); NEUTROPHILS ABSOLUTE AUTO 12.06 K/mm3 (1.96-9.15); NEUTROPHILS PERCENT AUTO 84 % (41-73); Platelet Count 338 K/mm3 (150-400); RDW Coefficient Variation 15.4 % (11.7-14.2); RDW Standard Deviation 49.1 fL (35.1-46.3); Red Blood Cell Count 5.08 M/mm3 (4.30-5.90)
[2021-05-02 13:17] LABS: Alanine Aminotransfer (ALT/SGP 73 U/L (12-78); Albumin, Blood 2.4 g/dL (3.4-5.0); Albumin/Globulin Ratio 0.4 (0.8-1.8); Alk Phos 224 U/L (50-136); Anion Gap 6 mmol/L (6-16); Aspartate Aminotrans (AST/SGOT 57 U/L (12-37); Bilirubin, Total 0.7 mg/dL (0.1-1.0); Blood Urea Nitrogen 23 mg/dL (8-24); Bun/Creatinine Ratio 26.7 (12.0-20.0); CO2, Blood 28 mmol/L (21-32); Calcium, Blood 8.8 mg/dL (8.5-10.1); Chloride, Blood 99 mmol/L (98-108); Creatinine, Blood 0.86 mg/dL (0.60-1.20); Globulin, Blood 5.6 g/dL (2.2-4.0); Glomerular Filtration Rate >60 (60-); Glucose, Blood 134 mg/dL (70-99); Sodium, Blood 133 mmol/L (136-145); Troponin I <0.015 ng/mL (0.000-0.040)
[2021-05-02] MEDS ORDERED: CEPH500 PO (15:41)
== END 2021-05-02 16:35 | disposition home or self-care (01) ==
LOC: ER 11:59
PROVIDERS: Physician Assistant
DX: L03.115 Cellulitis of right lower limb (principal); L03.116 Cellulitis of left lower limb; Z79.899 Other long term (current) drug therapy; Z79.82 Long term (current) use of aspirin; Z79.02 Long term (current) use of antithrombotics/antiplatelets
CPT/HCPCS: 36415; 71046; 80053; 83690; 83880; 84484; 85025; 93005; 93010; 93922; 96365; 96366; 99284-25; J0690

== ENCOUNTER 2021-05-12 12:30 | Emergency (ER) | payer MEDICARE ==
[~2021-05-12] VITALS: Ht 167.6 cm; Wt 61.2 kg
[2021-05-12 13:10] LABS: Albumin, Blood 2.1 g/dL (3.4-5.0); Albumin/Globulin Ratio 0.4 (0.8-1.8); Bilirubin, Total 0.4 mg/dL (0.1-1.0); Bun/Creatinine Ratio 21.7 (12.0-20.0); Creatinine, Blood 1.75 mg/dL (0.60-1.20); Globulin, Blood 5.5 g/dL (2.2-4.0); Potassium, Blood 4.1 mmol/L (3.5-5.5); Total Protein, Blood 7.6 g/dL (6.4-8.2)
[2021-05-12 13:23] LABS: BASOPHILS ABSOLUTE AUTO 0.04 K/mm3 (0.00-0.23); BASOPHILS PERCENT AUTO 0 % (0-2); EOSINOPHILS ABSOLUTE AUTO 0.02 K/mm3 (0.00-0.68); EOSINOPHILS PERCENT AUTO 0 % (0-6); Hematocrit 40.3 % (37.0-53.0); Hemoglobin 12.2 g/dL (13.5-17.5); IMMATURE GRAN ABSOLUTE AUTO 0.11 K/mm3 (0.00-0.10); IMMATURE GRAN PERCENT AUTO 1 % (0-1); LYMPHOCYTES PERCENT AUTO 6 % (21-46); MONOCYTES ABSOLUTE AUTO 1.32 K/mm3 (0.16-1.47); MONOCYTES PERCENT AUTO 10 % (4-13); Mean Corpuscular HGB 26.9 pg (26.0-34.0); Mean Corpuscular HGB Conc 30.3 g/dL (31.5-36.5); Mean Corpuscular Volume 89 fL (80-100); Mean Platelet Volume 10.3 fL (9.1-12.4); NEUTROPHILS ABSOLUTE AUTO 10.41 K/mm3 (1.96-9.15); NEUTROPHILS PERCENT AUTO 82 % (41-73); Platelet Count 347 K/mm3 (150-400); RDW Coefficient Variation 15.2 % (11.7-14.2); RDW Standard Deviation 49.8 fL (35.1-46.3); Red Blood Cell Count 4.54 M/mm3 (4.30-5.90)
== END 2021-05-12 17:40 | disposition home or self-care (01) ==
LOC: ER 12:30
PROVIDERS: Physician Assistant
DX: L03.115 Cellulitis of right lower limb (principal); N17.9 Acute kidney failure, unspecified; I10 Essential (primary) hypertension; J44.9 Chronic obstructive pulmonary disease, unspecified; Z88.5 Allergy status to narcotic agent; Z79.82 Long term (current) use of aspirin; Z79.02 Long term (current) use of antithrombotics/antiplatelets
CPT/HCPCS: 36415; 80053; 85025; 96365; 99283-25; J0690; J7030

== ENCOUNTER 2021-05-19 09:57 | Inpatient (IN) | payer MEDICARE ==
[~2021-05-19] VITALS: Ht 182.9 cm; Wt 59.0 kg
[~2021-05-19 09:57] MED LIST changes: -ASPI81CH PO; +Aspir 8181 MG PO
[2021-05-19 10:38] LABS: BASOPHILS ABSOLUTE AUTO 0.01 K/mm3 (0.00-0.23); BASOPHILS PERCENT AUTO 0 % (0-2); EOSINOPHILS PERCENT AUTO 0 % (0-6); Hemoglobin 12.2 g/dL (13.5-17.5); IMMATURE GRAN ABSOLUTE AUTO 0.03 K/mm3 (0.00-0.10); IMMATURE GRAN PERCENT AUTO 0 % (0-1); LYMPHOCYTES ABSOLUTE AUTO 0.74 K/mm3 (0.84-5.20); LYMPHOCYTES PERCENT AUTO 10 % (21-46); MONOCYTES ABSOLUTE AUTO 1.07 K/mm3 (0.16-1.47); MONOCYTES PERCENT AUTO 15 % (4-13); Mean Corpuscular HGB 27.4 pg (26.0-34.0); Mean Corpuscular HGB Conc 32.1 g/dL (31.5-36.5); Mean Corpuscular Volume 85 fL (80-100); Mean Platelet Volume 10.9 fL (9.1-12.4); NEUTROPHILS PERCENT AUTO 74 % (41-73); Platelet Count 194 K/mm3 (150-400); RDW Coefficient Variation 15.5 % (11.7-14.2); RDW Standard Deviation 48.3 fL (35.1-46.3); Red Blood Cell Count 4.45 M/mm3 (4.30-5.90); White Blood Cell Count 7.15 K/mm3 (4.00-11.30)
[2021-05-19 10:52] LABS: Source, Urine Clean Catch
[2021-05-19 10:58] LABS: Albumin, Blood 1.9 g/dL (3.4-5.0); Albumin/Globulin Ratio 0.4 (0.8-1.8); Bilirubin, Total 0.3 mg/dL (0.1-1.0); Bun/Creatinine Ratio 12.5 (12.0-20.0); Calcium, Blood 7.2 mg/dL (8.5-10.1); Creatinine, Blood 4.63 mg/dL (0.60-1.20); Globulin, Blood 5.2 g/dL (2.2-4.0); Potassium, Blood 4.3 mmol/L (3.5-5.5); Total Protein, Blood 7.1 g/dL (6.4-8.2)
[2021-05-19 11:01] LABS: Appearance, Urine Hazy (Clear); Bilirubin, Urine Neg (Neg); Blood, Urine 5+ (Neg); Glucose Qualitative, Urine Neg (Neg); Ketones, Urine Neg (Neg); Leukocyte Esterase, Urine 1+ (Neg); Nitrite, Urine Neg (Neg); Protein, Urine 3+ (Neg); Specific Gravity, Urine 1.015 (1.003-1.022); Urobilinogen, Urine NORM (Normal)
[2021-05-19 11:17] LABS: Color, Urine Red (P-Yellow)
[2021-05-19 11:20] LABS: Bacteria Mod /hpf; Red Blood Cells, Urine TNTC /hpf (0-2); Squamous Epithelial Cells Few /hpf (Few)
--- NOTE | 2021-05-19 15:04 | NUR ---
PT ARRIVED TO FLOOR AOX4 AND COOPERATIVE OF CARE. PT SETTLED INTO ROOM AND CALL LIGHT IN REACH. PT STANDS WELL INDEPENDENTLY TO USE URININAL. WILL CONTINUE TO MONITOR.
[2021-05-19] MEDS ORDERED: FURO40 PO (15:25)
[2021-05-19] MEDS ORDERED: POTA10T PO (15:26)
[2021-05-19] MEDS ORDERED: BACTRIM DS TAB1 EAC6 PO (15:28)
[2021-05-19] MEDS ORDERED: ONDA4 SL (15:29)
--- NOTE | 2021-05-19 18:23 | NUR ---
PT AOX4 AND COOPERATIVE OF ALL CARE. PT STATES HE IS FEELING MUCH BETTER. PT DOES GET SOB WITH AMBULATION, BUT MAINTAINS AT 92% AT RA. CALL LIGHT IS WITHIN REACH WILL CONTINUE TO MONITOR. NO DISTRESS NOTED.
[2021-05-19 19:05] LABS: Albumin, Blood 1.8 g/dL (3.4-5.0); Anion Gap 9 mmol/L (6-16); Blood Urea Nitrogen 56 mg/dL (8-24); Bun/Creatinine Ratio 12.2 (12.0-20.0); CO2, Blood 25 mmol/L (21-32); Calcium, Blood 7.1 mg/dL (8.5-10.1); Chloride, Blood 104 mmol/L (98-108); Glomerular Filtration Rate 12 (60-); Glucose, Blood 158 mg/dL (70-99); Phosphorus, Blood 6.3 mg/dL (2.5-4.9); Potassium, Blood 3.7 mmol/L (3.5-5.5); Sodium, Blood 138 mmol/L (136-145)
--- NOTE | 2021-05-20 00:24 | NUR ---
05/19/212103 PT LYING IN BED, REPORTS A HEADACHE BUT DOES NOT WANT ANYTHING FOR IT AT THIS TIME. PT IS VERY ANXIOUS ABOUT BEING HERE, ABOUT HIS CONDITIONS, ABOUT HIS , ABOUT THE WEATHER. ATTEMPTED TO TALK WITH PT REGARDING THESE THINGS, HE IS STILL PRETTY ANXIOUS. NO OTHER APPARENT SIGNS OF DISTRESS. CALL LIGHT IS IN REACH.
--- NOTE | 2021-05-20 00:39 | NUR ---
05/19/21 2200 PT LYING IN BED, AWAKE, STILL VERY ANXIOUS ABOUT PRETTY MUCH EVERYTHING. ATTEMPTED TO TALK TO PT ABOUT HIS WORRIES BUT HE REMAINS PRETTY ANXIOUS. ENCOURAGED HIM TO CLOSE HIS EYES AND ATTEMPT TO SLEEP. NO OTHER APPARENT SIGNS OF DISTRESS. CALL LIGHT IS IN REACH.
--- NOTE | 2021-05-20 03:02 | NUR ---
0200 PT LYING IN BED, EYES CLOSED, APPEARS TO BE RESTING. BREATHING IS EVEN, UNLABORED. NO APPARENT SIGNS OF DISTRESS. CALL LIGHT IS IN REACH.
--- NOTE | 2021-05-20 05:17 | NUR ---
0400 PT LYING IN BED, EYES CLOSED, WAKES EASILY TO VERBAL STIMULI. NO APPARENT SIGNS OF DISTRESS. CALL LIGHT IS IN REACH.
--- NOTE | 2021-05-20 05:18 | NUR ---
PT AAO X 4, ON RA. REPORTED A HEADACHE BUT DID NOT WANT MEDS FOR IT. PT HAS A LOT OF ANXIETY OVER MULT THINGS.
--- NOTE | 2021-05-20 05:19 | NUR ---
PT LYING IN BED, EYES CLOSED, APPEARS TO BE RESTING. BREATHING IS EVEN, UNLABORED. NO APPARENT SIGNS OF DISTRESS. CALL LIGHT IS IN REACH. NO OTHER CHANGES THIS SHIFT.
[2021-05-20 05:34] LABS: Hematocrit 38.5 % (37.0-53.0); Hemoglobin 12.2 g/dL (13.5-17.5); Mean Corpuscular HGB 27.3 pg (26.0-34.0); Mean Corpuscular HGB Conc 31.7 g/dL (31.5-36.5); Mean Corpuscular Volume 86 fL (80-100); Mean Platelet Volume 10.2 fL (9.1-12.4); Platelet Count 169 K/mm3 (150-400); RDW Coefficient Variation 15.3 % (11.7-14.2); RDW Standard Deviation 48.8 fL (35.1-46.3); Red Blood Cell Count 4.47 M/mm3 (4.30-5.90); White Blood Cell Count 3.66 K/mm3 (4.00-11.30)
[2021-05-20 06:10] LABS: Albumin, Blood 1.8 g/dL (3.4-5.0); Anion Gap 9 mmol/L (6-16); Blood Urea Nitrogen 63 mg/dL (8-24); Bun/Creatinine Ratio 13.2 (12.0-20.0); CO2, Blood 24 mmol/L (21-32); Calcium, Blood 7.2 mg/dL (8.5-10.1); Chloride, Blood 107 mmol/L (98-108); Creatinine, Blood 4.76 mg/dL (0.60-1.20); Glomerular Filtration Rate 12 (60-); Glucose, Blood 138 mg/dL (70-99); Phosphorus, Blood 7.3 mg/dL (2.5-4.9); Sodium, Blood 140 mmol/L (136-145)
--- NOTE | 2021-05-20 16:23 | NUR ---
SHIFT SUMMARY PATIENT DENIES PAIN, NAUSEA, AND SHORTNESS OF BREATH. MAINTAINING OXYGEN SATURATION ABOVE 92% ON ROOM AIR. UP SBA IN ROOM. EXPRESSES ANXIETY OVER BEING AT HOME ALONE, HIS HEALTH, AND TAKING MEDICATIONS. EATING AND DRINKING WELL. PLEASANT AND COOPERATIVE WITH CARE.
--- NOTE | 2021-05-21 04:25 | NUR ---
SHIFT SUMMARY PT VERY ANXIOUS OVER CURRENT ILLNESS AND HIS HOME SITUTATION. PT HAS RESTED OFF AND ON T/O THE NIGHT BUT HAS SPENT MOST OF THE NIGHT AWAKE AND WATCHING TV. PT HAS PRODUCTIVE HARSH HACKING COUGH. SOB WITH EXERTION. VITALS ARE STABLE. IVF INFUSING ORDERED. AWAITING AM LABS AT THIS TIME TO SEE IF RENAL FUCTION HAS IMPROVED. BED IN LOWEST POSITION, CALL LIGHT WITHIN REACH.
[2021-05-21 05:52] LABS: Hematocrit 35.4 % (37.0-53.0); Hemoglobin 11.1 g/dL (13.5-17.5)
[2021-05-21 06:13] LABS: Albumin, Blood 1.9 g/dL (3.4-5.0); Anion Gap 8 mmol/L (6-16); Blood Urea Nitrogen 68 mg/dL (8-24); Bun/Creatinine Ratio 14.9 (12.0-20.0); CO2, Blood 24 mmol/L (21-32); Calcium, Blood 6.8 mg/dL (8.5-10.1); Chloride, Blood 110 mmol/L (98-108); Creatinine, Blood 4.57 mg/dL (0.60-1.20); Glomerular Filtration Rate 13 (60-); Glucose, Blood 94 mg/dL (70-99); Phosphorus, Blood 5.3 mg/dL (2.5-4.9); Potassium, Blood 3.9 mmol/L (3.5-5.5); Sodium, Blood 142 mmol/L (136-145)
--- NOTE | 2021-05-21 06:43 | NUR ---
URINE DR. LARA CALLED AND NOTIFIED OF PT URINE, IT IS A LIGHT CRANBERRY TINGE, HOWEVER, THERE ARE NO CLOTS IN THE URINE. PT DOES HAVE UTI. HGB IS STABLE BUT DID DROP SLIGHTLY WITH AM LABS. DR. LARA CALLED AND NOTIFIED OF THIS. NO ORDERS GIVEN AT THIS TIME, SHE STATES TO NOTIFY DAYSHIFT RN FOR FOLLOW UP WITH ATTENDING.
--- NOTE | 2021-05-21 16:17 | NUR ---
SHIFT SUMMARY PATIENT DENIES PAIN, NAUSEA, AND SHORTNESS OF BREATH. PATIENT HAS INTERMITTENT COUGH THAT HE STATES IS NORMAL FOR HIM. PATIENT VERY ANXIOUS, NEW ORDERS FOR PRN XANAX GIVEN. PATIENT UP SBA TO BR/URINAL AT BEDSIDE. DR. FONSECA CONSULTED ON PATIENT. PATIENT CONTINUED TO HAVE RED TINGED URINE BUT DENIES PAINFUL URINATION. COOPERATIVE WITH CARE. EATING AND DRINKING WELL.
--- NOTE | 2021-05-22 04:53 | NUR ---
SHIFT SUMMARY PT HAS HAD A MUCH MORE RESTFUL NIGHT, PT STILL ANXIOUS AT TIMES BUT ANXIETY HAS GREATLY IMPROVED WITH PRN XANAX. PT HAS RESTED MOST OF THE NIGHT AND HAS DENIED NEEDS. URINE IS NO LONGER CRANBERRY TINGED AND IS MORE JANUSZ IN COLOR. PT HAS BEEN AMBULATING WITH 1 PA. SOB WITH EXERTION, OCCASIONAL COUGH. PT A/OX4, MAKES NEEDS KNOWN. NO ACUTE CHANGES OVERNIGHT. BED IN LOWEST POSITION, CALL LIGHT WITHIN REACH.
--- NOTE | 2021-05-22 05:31 | NUR ---
HYPERTENSIVE PT BP HAS TRENDED UPWARDS THE PAST COUPLE OF DAYS. DR LARA NOTIFIED OF PT BLOOD PRESSURE. RECEIVED ORDER TO DECREASE FLUIDS FROM 75 ML/HR TO 50 ML/HR.
[2021-05-22 05:47] LABS: Hematocrit 37.9 % (37.0-53.0); Hemoglobin 11.7 g/dL (13.5-17.5)
[2021-05-22 06:06] LABS: Albumin, Blood 1.9 g/dL (3.4-5.0); Anion Gap 6 mmol/L (6-16); Blood Urea Nitrogen 65 mg/dL (8-24); Bun/Creatinine Ratio 15.1 (12.0-20.0); CO2, Blood 25 mmol/L (21-32); Calcium, Blood 7.2 mg/dL (8.5-10.1); Chloride, Blood 112 mmol/L (98-108); Glomerular Filtration Rate 14 (60-); Glucose, Blood 152 mg/dL (70-99); Magnesium, Blood 2.1 mg/dL (1.6-2.4); Phosphorus, Blood 5.3 mg/dL (2.5-4.9); Potassium, Blood 4.2 mmol/L (3.5-5.5); Sodium, Blood 143 mmol/L (136-145)
--- NOTE | 2021-05-22 17:01 | NUR ---
SHIFT SUMMARY PT AxOx4. PT WAS VERY ANXIOUS T/O THIS SHIFT AND EXPERIENCED PANIC ATTACK MID DAY. PT WAS ABLE TO REGAIN CALM AFTER NURSES AND MILKING MACHINE OPERATOR PROVIDED THERAPEUTIC COMMUNICATION AND PHARMACEUTICAL INTERVENTIONS. PT'S WAS CALLED IN EARLY TO ASSIST WITH PATIENT'S NEEDS. DR LYNCH IN ROOM DURING VISIT AND DISCUSSED THE PLAN OF CARE. PT VITALS WERE HYPERTENSIVE. MEDICATED PER EMAR. PT USING 2L O2 PRN- PT TAKES OFF WHEN HE WANTS. PHYSICAL THERAPY IN TODAY. PT UNHAPPY ABOUT ST PLACING HIM ON SWALLOW/MED PRECAUTIONS. PALLIATIVE CARE CONSULT ORDERED. PT CURRENTLY RESTING IN BED WITH CALL LIGHT IN REACH. VITALS REVIEWED. DENIES ANY NEEDS AT THIS TIME.
[2021-05-23 05:29] LABS: Hematocrit 45.1 % (37.0-53.0)
[2021-05-23 06:10] LABS: Albumin, Blood 2.1 g/dL (3.4-5.0); Anion Gap 7 mmol/L (6-16); Blood Urea Nitrogen 67 mg/dL (8-24); Bun/Creatinine Ratio 17.4 (12.0-20.0); CO2, Blood 24 mmol/L (21-32); Calcium, Blood 7.5 mg/dL (8.5-10.1); Chloride, Blood 111 mmol/L (98-108); Creatinine, Blood 3.86 mg/dL (0.60-1.20); Glomerular Filtration Rate 15 (60-); Glucose, Blood 134 mg/dL (70-99); Magnesium, Blood 1.9 mg/dL (1.6-2.4); Phosphorus, Blood 5.4 mg/dL (2.5-4.9); Potassium, Blood 4.3 mmol/L (3.5-5.5); Sodium, Blood 142 mmol/L (136-145)
--- NOTE | 2021-05-23 07:30 | NUR ---
SHIFT SUMMARY ALERT, ABLE TO MAKE NEEDS KNOWN. MULTIPLE REQUEST OF STAFF OVERNIGHT. UP OOB WITHOUT ASSISTANCE MULTIPLE TIMES. NOW ON BED ALARM, STILL NOT UTILIZING CALL SYSTEM. ANGRY AND ANXIOUS T/O SHIFT. DISMISSIVE OF ANY INTERVENTIONS OFFERED TO HIM. NO C/O PAIN/DISCOMFORT. REMAINS HYPERTENSIVE; COVERAGE NOT INDICATED FOR ARMEN'D HYDRALAZINE PER VS PARAMETERS. IV CONTINUES TO INFUSE WITHOUT COMPLICATIONS. NO OTHER CHANGES NOTED OVERNIGHT. BED REMAINS IN LOWEST POSITION; ALARM ON. CALL LIGHT AND BELONGINGS WITHIN REACH. CONTINUE WITH CURRENT PLAN OF CARE. REPORT GIVEN TO ONCOMING RN.
[2021-05-23] MEDS ORDERED: CLOP75 PO (11:44)
[2021-05-23] MEDS ORDERED: GUAI600T33 PO (11:44)
[2021-05-23] MEDS ORDERED: PRED20 PO (11:45)
[2021-05-23] MEDS ORDERED: METO25 PO (11:45)
[2021-05-23] MEDS ORDERED: ATOR80 PO (12:03)
--- NOTE | 2021-05-23 14:20 | NUR ---
DISCHARGE DISCHARGE MEDICATIONS AND INSTRUCTIONS EXPLAINED TO PATIENT. PATIENT STATED UNDERESTANDING. PCP AND DR. FONSECA FOLLOW UPS SCHEDULED. IV REMOVED WITHOUT ISSUE. BELONGIGNS WITH PATIENT. PATIENT TRANSFERED TO PRIVATE VEHICLE VIA WHEELCHAIR.
== END 2021-05-23 13:04 | disposition home or self-care (01) | DRG 682 ==
LOC: ER 09:57 → MEDS 14:18
PROVIDERS: Emergency Medicine; Internal Medicine Nephrology; ADMIT Internal Medicine
DX: N17.0 Acute kidney failure with tubular necrosis (principal); J18.9 Pneumonia, unspecified organism; I50.32 Chronic diastolic (congestive) heart failure; J44.0 Chronic obstructive pulmonary disease with (acute) lower respiratory infection; I13.0 Hypertensive heart and chronic kidney disease with heart failure and stage 1 through stage 4 chronic kidney disease, or unspecified chronic kidney disease; J44.1 Chronic obstructive pulmonary disease with (acute) exacerbation; F17.210 Nicotine dependence, cigarettes, uncomplicated; E78.5 Hyperlipidemia, unspecified; N18.9 Chronic kidney disease, unspecified; E83.39 Other disorders of phosphorus metabolism; E88.09 Other disorders of plasma-protein metabolism, not elsewhere classified; D63.1 Anemia in chronic kidney disease; M81.0 Age-related osteoporosis without current pathological fracture; E86.0 Dehydration; F41.9 Anxiety disorder, unspecified; J98.01 Acute bronchospasm; Z86.73 Personal history of transient ischemic attack (TIA), and cerebral infarction without residual deficits; Z90.89 Acquired absence of other organs; Z98.52 Vasectomy status; Z88.8 Allergy status to other drugs, medicaments and biological substances; Z79.2 Long term (current) use of antibiotics; Z79.82 Long term (current) use of aspirin; Z79.899 Other long term (current) drug therapy; Z86.711 Personal history of pulmonary embolism; Z98.890 Other specified postprocedural states
CPT/HCPCS: 36415; 71045; 71250; 76770; 80053; 80069; 81001; 82947; 83605; 83735; 83880; 84145; 85014; 85018; 85025; 85027; 87040; 87086; 92526; 92610; 93005; 93010; 94640; 94644; 94760; 96365; 96367; 96375; 97110; 97116; 97161; 97166; 97530; 99285-25; A9270; J0360; J0456; J0696; J1644; J2405; J2920; J2930; J7030; J7050

== ENCOUNTER 2021-05-24 07:43 | Inpatient (IN) | payer MEDICARE ==
[~2021-05-24] VITALS: Ht 172.7 cm; Wt 58.3 kg
[~2021-05-24 07:43] MED LIST changes: +BACTRIM DS TAB1 EAC6 PO; +FURO40 PO; +GUAI600T33 PO; +METO25 PO; +ONDA4 SL; +POTA10T PO
[2021-05-24 08:00] LABS: BASOPHILS ABSOLUTE AUTO 0.02 K/mm3 (0.00-0.23); BASOPHILS PERCENT AUTO 0 % (0-2); EOSINOPHILS PERCENT AUTO 0 % (0-6); Hematocrit 44.1 % (37.0-53.0); Hemoglobin 13.6 g/dL (13.5-17.5); IMMATURE GRAN ABSOLUTE AUTO 0.09 K/mm3 (0.00-0.10); IMMATURE GRAN PERCENT AUTO 1 % (0-1); LYMPHOCYTES ABSOLUTE AUTO 0.64 K/mm3 (0.84-5.20); LYMPHOCYTES PERCENT AUTO 4 % (21-46); MONOCYTES ABSOLUTE AUTO 1.52 K/mm3 (0.16-1.47); MONOCYTES PERCENT AUTO 9 % (4-13); Mean Corpuscular HGB 26.9 pg (26.0-34.0); Mean Corpuscular HGB Conc 30.8 g/dL (31.5-36.5); Mean Corpuscular Volume 87 fL (80-100); Mean Platelet Volume 11.9 fL (9.1-12.4); NEUTROPHILS ABSOLUTE AUTO 13.99 K/mm3 (1.96-9.15); NEUTROPHILS PERCENT AUTO 86 % (41-73); Platelet Count 263 K/mm3 (150-400); RDW Coefficient Variation 15.9 % (11.7-14.2); RDW Standard Deviation 50.9 fL (35.1-46.3); Red Blood Cell Count 5.06 M/mm3 (4.30-5.90); White Blood Cell Count 16.26 K/mm3 (4.00-11.30)
[2021-05-24 08:37] LABS: Albumin, Blood 2.2 g/dL (3.4-5.0); Albumin/Globulin Ratio 0.4 (0.8-1.8); Bilirubin, Total 0.3 mg/dL (0.1-1.0); Bun/Creatinine Ratio 19.3 (12.0-20.0); Creatinine, Blood 3.78 mg/dL (0.60-1.20); Potassium, Blood 4.2 mmol/L (3.5-5.5); Total Protein, Blood 7.2 g/dL (6.4-8.2)
[2021-05-24 08:38] LABS: Base Excess Venous -4.3 mmol/L; Bicarbonate Venous 20.2 mmol/L (24.0-30.0); PCO2 Venous 52.2 mmHg (38-42); PO2 Venous 62.8 mmHg (38-42)
[2021-05-24 08:39] LABS: pH Blood Venous 7.25 (7.34-7.37)
[2021-05-24 08:45] LABS: Troponin I 0.503 ng/mL (0.000-0.040)
[2021-05-24 12:01] LABS: Thyroid Stimulating Hormone 0.707 uIU/mL (0.360-4.800)
[2021-05-24 12:14] LABS: SARS-Cov-2 (COVID-19) PCR, MMC POSITIVE (NEGATIVE)
[2021-05-24 12:40] LABS: Base Excess Venous -6.3 mmol/L; PCO2 Venous 48.3 mmHg (38-42); PO2 Venous 57.3 mmHg (38-42); pH Blood Venous 7.25 (7.34-7.37)
--- NOTE | 2021-05-24 18:31 | NUR ---
ADMIT/SHIFT SUMMARY: PT IS NEW ADMIT FROM ER APPROX 1430 TODAY. PT ARRIVES ALERT, CONFUSED, AGITATED, NOT COOPERATIVE WITH CARE. PT ATTEMPTING TO PULL IV LINES AND EXIT BED, NOT REDIRECTABLE. DR LYNCH NOTIFIED OF PT CONDITION, NEW ORDERS RECEIVED, PT PLACED IN PATRICK VEST AND SOFT BILATERAL WRIST CUFFS FOR SAFETY. PT MAINTAINING O2 SATS >95% ON ROOM AIR AT THIS TIME, AFIB ON MONITOR W/RATE 100-120, CARDIZEM GTT ON STANDBY AND DR LYNCH AWARE. ECHO WAS ATTEMPTED TODAY, NOT ACHIEVED D/T PT AGITATION, WILL RETRY TOMORROW. PT ARRIVED TO UNIT SOILED, PERICARE AND LINEN CHANGE PERFORMED, ATTENDS IN PLACE AT THIS TIME AND CHANGED NEEDED. CURRENTLY, PT RESTING QUIETLY IN ROOM WITH CALL LIGHT WITHIN REACH. WILL CONTINUE TO MONITOR AND TREAT ACCORDINGLY UNTIL CHANGE OF SHIFT.
[2021-05-24 20:06] LABS: PCO2 Arterial 37.3 mmHg (35-45); PO2 Arterial 70.5 mmHg (80-100); pH Blood Arterial 7.37 (7.35-7.45)
--- NOTE | 2021-05-24 21:00 | NUR ---
CALLED DR. FONSECA REGARDING ABG; NO NEW ORDERS
--- NOTE | 2021-05-24 22:00 | NUR ---
ASSUMED CARE OF PATIENT AT APPROXIMATELY 1910 FROM BEATA Marsh RN. PATIENT ALERT AT TIMES; ABLE TO STATE NAME AND BUT CONFUSED ON OTHER QUESTIONS; MUMBLES AT TIMES; AGITATED; PULLING ON WRIST RESTRAINTS AND PATRICK VEST. PATIENT DENIES CP/PRESSURE, PAIN ELSEWHERE, NUMBESS, TINGLING OR NAUSEA. AFIB 90-140'S ON TELE; HEART RATE INCREASES WITH AGITATION; CARDIZEM GTT ON STANDBY. 2X PIV. CALLED MULTIPLE TIMES. INCONTINENT OF URINE. OXYGEN SATURATION ABOVE 90% ON ROOM AIR; ISOLATION FOR COVID.
[2021-05-24 23:47] LABS: Source, Urine Catheter
[2021-05-24 23:49] LABS: Bilirubin, Urine Neg (Neg); Blood, Urine 5+ (Neg); Glucose Qualitative, Urine 2+ (Neg); Ketones, Urine Neg (Neg); Leukocyte Esterase, Urine 1+ (Neg); Nitrite, Urine Neg (Neg); Protein, Urine 3+ (Neg); Specific Gravity, Urine 1.015 (1.003-1.022); Urobilinogen, Urine NORM (Normal)
[2021-05-24 23:54] LABS: Appearance, Urine Hazy (Clear); Color, Urine Yellow (P-Yellow)
[2021-05-24 23:55] LABS: Amorphous Heavy (0-Heavy); Bacteria Mod /hpf; Red Blood Cells, Urine 25-50 /hpf (0-2); Squamous Epithelial Cells Rare /hpf (Few); White Blood Cells, Urine 50-100 /hpf (0-5)
[2021-05-25 04:15] LABS: BASOPHILS PERCENT AUTO 0 % (0-2); EOSINOPHILS PERCENT AUTO 0 % (0-6); Hematocrit 37.9 % (37.0-53.0); Hemoglobin 12.1 g/dL (13.5-17.5); IMMATURE GRAN ABSOLUTE AUTO 0.02 K/mm3 (0.00-0.10); IMMATURE GRAN PERCENT AUTO 0 % (0-1); LYMPHOCYTES ABSOLUTE AUTO 0.18 K/mm3 (0.84-5.20); LYMPHOCYTES PERCENT AUTO 3 % (21-46); MONOCYTES ABSOLUTE AUTO 0.42 K/mm3 (0.16-1.47); MONOCYTES PERCENT AUTO 8 % (4-13); Mean Corpuscular HGB 27.4 pg (26.0-34.0); Mean Corpuscular HGB Conc 31.9 g/dL (31.5-36.5); Mean Corpuscular Volume 86 fL (80-100); Mean Platelet Volume 12.2 fL (9.1-12.4); NEUTROPHILS ABSOLUTE AUTO 4.78 K/mm3 (1.96-9.15); NEUTROPHILS PERCENT AUTO 89 % (41-73); Platelet Count 163 K/mm3 (150-400); RDW Coefficient Variation 15.9 % (11.7-14.2); RDW Standard Deviation 50.1 fL (35.1-46.3); Red Blood Cell Count 4.41 M/mm3 (4.30-5.90)
[2021-05-25 04:39] LABS: Albumin/Globulin Ratio 0.5 (0.8-1.8); Bilirubin, Direct 0.1 mg/dL (0.0-0.3); Bilirubin, Indirect 0.2 mg/dL (0.1-0.7); Bilirubin, Total 0.3 mg/dL (0.1-1.0); Bun/Creatinine Ratio 20.5 (12.0-20.0); Calcium, Blood 7.8 mg/dL (8.5-10.1); Creatinine, Blood 3.85 mg/dL (0.60-1.20); Globulin, Blood 4.3 g/dL (2.2-4.0); Magnesium, Blood 1.9 mg/dL (1.6-2.4); Phosphorus, Blood 5.6 mg/dL (2.5-4.9); Potassium, Blood 4.1 mmol/L (3.5-5.5); Total Protein, Blood 6.3 g/dL (6.4-8.2); Uric Acid, Blood 7.1 mg/dL (3.5-7.2)
--- NOTE | 2021-05-25 06:20 | NUR ---
PATIENT SLEPT ABOUT EIGHT HOURS; AGITATED OFF AND ON; CALLED FOR UPDATE T/O THE NIGHT. HEART RATE TRENDING IN 140'S; CARDIZEM GTT STARTED PER ORDER. URINARY CATH PLACED PER ORDER; 24 HOUR URINE STARTED. NO OTHER ACUTE CHANGES.
--- NOTE | 2021-05-25 11:41 | NUR ---
Palliative Care Case Conference Note Attempted to visit Pt this AM. Primary RN [place] just coming out of Pt's room and reports Pt is agitated at this time. [place] reports Pt may benefit from PC visit at a later time. Attempted to contact Pt's daughter Dolores. Left voicmail with request for a return phone call. Called and spoke with Pt's SO Jennifer. She reports her and Pt are not but have been together for over 20 years. She reports Pt's children are not invloved with Pt. She reports Dolores is hard to contact. Engaged in therapeutic conversation regarding advanced care planning. Discussed Pt's chronic illnesses and educated on disease process including trajectory of disease. Discussed options for the future including considering hospice. Educated on hospice philosophy with V/U made by Jennifer. Jennifer reports Pt wishes to avoid hospitalization and would prefer hospice services. Discussed hospice agencies to choose from. Jennifer reports she will considerr choices and let staff know at a later time. Discussed code status. Educated on life sustaining treatments including risk factors and implications of CPR. Jennifer reports Pt wishes are to be DNR. Offered therapeutic listening and answered questions. No other concerns reported at this time. Spoke with Dr Aldridge and discussed case including conversation with family. Dr Aldridge will change Pt's code status to DNR. Spoke with Partner Cco Lucy and discussed case. Palliative Care will remain available.
--- NOTE | 2021-05-25 19:59 | NUR ---
PT HIGHLY VERBALLY AGITATED ALL SHIFT, DENIED PAIN, REQUESTED BREATHING TREATMENTS, REFUSES TO ANSWER ORIENTATION QUESTIONS, ON CARDIZEM DRIP AT 5, INCREASED TO 10 AT 0915, HEART RATE MAINTAINING ALL SHIFT IN 110-120'S, DR. FONSECA WAS CALLED AT 0958 PERTAINING TO CLARIFYING STEROID ADMINISTRATION ORDER, PT'S BILATERAL SOFT WRIST RESTRAINTS ON FROM 0700 TO 0956, AND PATRICK VEST ON FROM 0700 TO 1640, PT ASSISTED WITH USE OF ROOM PHONE AND WAS ABLE TO CALL HIS FAMILY MEMBERS, PT GIVEN BREATHING TRX BY RT, PT ON RA ALL SHIFT SATTING >93%, PT DENIES ADDITIONAL CONCERNS AT THIS TIME
--- NOTE | 2021-05-25 20:50 | NUR ---
PATIENT WAS REQUESTING TO EAT. PASSED BEDSIDE SWALLOW PER DAYSHIFT, WAS ALLOWED TO DRINK SIPS OF WATER WITH A STRAW. PO MEDICATIONS WERE ORDERED. DIET WAS CHANGED TO MECHANICAL SOFT DIET PER PREVIOUS NOTES. PATIENT MADE AWARE OF FLUID RESTRICTION.
--- NOTE | 2021-05-25 22:30 | NUR ---
CARDIZEM GTT DISCONTINUED, HR AVERAGING IN THE 80'S. PO METOPROLOL WAS GIVEN AT 2052.
[2021-05-26 00:13] LABS: Protein, Urine Quantitative 126.1 mg/dL (0.0-11.9)
[2021-05-26 04:39] LABS: BASOPHILS PERCENT AUTO 0 % (0-2); EOSINOPHILS PERCENT AUTO 0 % (0-6); Hematocrit 37.6 % (37.0-53.0); Hemoglobin 11.7 g/dL (13.5-17.5); IMMATURE GRAN ABSOLUTE AUTO 0.03 K/mm3 (0.00-0.10); IMMATURE GRAN PERCENT AUTO 0 % (0-1); LYMPHOCYTES PERCENT AUTO 3 % (21-46); MONOCYTES ABSOLUTE AUTO 0.37 K/mm3 (0.16-1.47); MONOCYTES PERCENT AUTO 5 % (4-13); Mean Corpuscular HGB 26.9 pg (26.0-34.0); Mean Corpuscular HGB Conc 31.1 g/dL (31.5-36.5); Mean Corpuscular Volume 86 fL (80-100); Mean Platelet Volume 11.6 fL (9.1-12.4); NEUTROPHILS PERCENT AUTO 92 % (41-73); Platelet Count 197 K/mm3 (150-400); RDW Coefficient Variation 15.9 % (11.7-14.2); RDW Standard Deviation 50.5 fL (35.1-46.3); Red Blood Cell Count 4.35 M/mm3 (4.30-5.90)
[2021-05-26 05:02] LABS: Albumin, Blood 2.1 g/dL (3.4-5.0); Albumin/Globulin Ratio 0.5 (0.8-1.8); Bilirubin, Total 0.3 mg/dL (0.1-1.0); Bun/Creatinine Ratio 20.9 (12.0-20.0); Calcium, Blood 7.8 mg/dL (8.5-10.1); Creatinine, Blood 4.01 mg/dL (0.60-1.20); Globulin, Blood 4.5 g/dL (2.2-4.0); Magnesium, Blood 2.1 mg/dL (1.6-2.4); Phosphorus, Blood 5.9 mg/dL (2.5-4.9); Potassium, Blood 3.8 mmol/L (3.5-5.5); Total Protein, Blood 6.6 g/dL (6.4-8.2)
--- NOTE | 2021-05-26 06:26 | NUR ---
DR. FONSECA BEDSIDE; ORDERS TO D/C BUMEX AND FLUID RESTRICTION AND START D5W AT 50ML/HR.
--- NOTE | 2021-05-26 06:27 | NUR ---
PATIENT MORE ORIENTED AT TIMES; REPORTS HE IS READY TO GO HOME; CALLED FAMILY THIS MORNING AND REPORTED HE IS GOING HOME. NO ACUTE CHANGES.
--- NOTE | 2021-05-26 08:42 | NUR ---
Call to Dr. Shetty regarding pt's heart rate 112-141. New order received to increase dose and frequency of lopressor p.o.
--- NOTE | 2021-05-26 09:07 | NUR ---
Call from Jennifer, pt's significant other. She states that the family does not want to have the pt on hospice, and the pt also does not want this. They would like the pt to come home, and his daughter will help with the pt's care.Jennifer states that the pt is adamant that he wants to go home today, does not want to be in any kind of facility, nor does he or the family want hospice.
--- NOTE | 2021-05-26 10:15 | NUR ---
R ARM IV IS POSITIONAL.
--- NOTE | 2021-05-26 18:44 | NUR ---
SHIFT SUMMARY PT A/O TO SELF/FAMILY AND HAS BEEN COOPERATIVE WITH CARE TODAY. HE IS FRUSTRATED WITH HAVING TO STAY IN THE HOSPITAL BUT OVERALL HAS BEEN PLEASANT. TOLERATING PO INTAKE WELL. HR ELEVATED THIS AM AND NEW ORDERS RECEIVED FROM DOCTOR. DYE PATENT AND DRAINING TO GRAVITY. PINK TINGED URINE NOTED. VSS. RESTING COMFORTABLY IN BED WITH HIS CALL LIGHT IN REACH. WILL REPORT TO KALE RN.
[2021-05-27 04:12] LABS: Hematocrit 37.8 % (37.0-53.0); Hemoglobin 11.8 g/dL (13.5-17.5)
[2021-05-27 04:40] LABS: Albumin, Blood 2.2 g/dL (3.4-5.0); Anion Gap 10 mmol/L (6-16); Blood Urea Nitrogen 97 mg/dL (8-24); Bun/Creatinine Ratio 22.7 (12.0-20.0); CO2, Blood 23 mmol/L (21-32); Calcium, Blood 8.2 mg/dL (8.5-10.1); Chloride, Blood 111 mmol/L (98-108); Creatinine, Blood 4.27 mg/dL (0.60-1.20); Glomerular Filtration Rate 14 (60-); Glucose, Blood 154 mg/dL (70-99); Magnesium, Blood 2.3 mg/dL (1.6-2.4); Phosphorus, Blood 6.8 mg/dL (2.5-4.9); Potassium, Blood 4.3 mmol/L (3.5-5.5); Sodium, Blood 144 mmol/L (136-145)
--- NOTE | 2021-05-27 06:12 | NUR ---
SHIFT SUMMARY S/P COVID c A.FIB, A/O THOUGH SOME SPEECH IS GARBLED, VSS, PT CONTINUES TO BE STABLE ON RA, DYE IN PLACE DRAINING JANUSZ URINE TO GRAVITY, NITRO PATCH ON R CHEST PER ORDER, NO ACUTE EVENTS THIS SHIFT. CALL LIGHT IN REACH, WILL CTM AND REPORT TO DAY RN.
--- NOTE | 2021-05-27 18:18 | NUR ---
SHIFT SUMMARY PT ALERT AND ORIENTED. CONFUSED AT TIMES. BED ALARM IN PLACE. PT ABLE TO TURN SELF IN BED. HR STABLE. TACHY AT TIMES 110'S-120'S. NO CP OR PRESSURE. OXYGEN SATURATION MAINTAINED ABOVE 92% ON RA. MEPLEX ON COCCYX D/T REDNESS. PT REPORTS PAIN IN LOW BACK. MEDICATED PER EMAR. WILL CONT TO MONITOR UNTIL REPORT GIVEN TO NIGHTSHIFT RN.
--- NOTE | 2021-05-27 22:39 | NUR ---
PT HANDOFF PT ALERT AND ORIENTED. CONFUSED AT TIMES. BED ALARM IN PLACE FOR SAFETY. OXYGEN SATURATION MAINTAINED ABOVE 92% ON RA. NO CP OR PRESSURE REPORTED. HR TACHY. BP STABLE. REPORT TO BE GIVEN TO RICKY WEIR.
--- NOTE | 2021-05-27 23:15 | NUR ---
ASSUMED CARE RECEIVED REPORT FROM ROSLYN GARCÍA AND ASSUMED PT CARE. PT IS ON THE BSC WITH ANDRY COLLADO ASSISTING. DENIES COMPLAINTS AT THIS TIME, IN NO ACUTE DISTRESS. VSS ON ROOM AIR, TELE SHOWS AFIB IN THE 110'S. PT IS ORIENTED TO SELF AND GENERAL SITUATION, SPEECH IS GARBLED AND DIFFICULT TO UNDERSTAND AT BASELINE. WILL CONTINUE TO MONITOR AND WILL CONTINUE PLAN OF CARE.
[2021-05-28 04:09] LABS: Hematocrit 40.6 % (37.0-53.0); Hemoglobin 12.4 g/dL (13.5-17.5)
[2021-05-28 04:26] LABS: Albumin, Blood 2.2 g/dL (3.4-5.0); Anion Gap 8 mmol/L (6-16); Blood Urea Nitrogen 113 mg/dL (8-24); Bun/Creatinine Ratio 24.8 (12.0-20.0); CO2, Blood 24 mmol/L (21-32); Calcium, Blood 7.9 mg/dL (8.5-10.1); Chloride, Blood 109 mmol/L (98-108); Creatinine, Blood 4.56 mg/dL (0.60-1.20); Glomerular Filtration Rate 13 (60-); Glucose, Blood 179 mg/dL (70-99); Magnesium, Blood 2.4 mg/dL (1.6-2.4); Phosphorus, Blood 7.6 mg/dL (2.5-4.9); Potassium, Blood 4.9 mmol/L (3.5-5.5); Sodium, Blood 141 mmol/L (136-145)
--- NOTE | 2021-05-28 07:16 | NUR ---
PT HAS BEEN PLEASANT AND COOPERATIVE, FORGETFUL AT TIMES BUT REDIRECTABLE. STATES "I'M READY TO GET UP AND MOVING, I DON'T WANT TO LAY AROUND". DENIES COMPLAINTS BUT VOICES CONCERN THAT "I THINK THEY MIGHT DECIDE THEY NEED TO DO DIALYSIS". STATES MULTIPLE TIMES THAT HE IS WAITING FOR THIS NEWS ABOUT DIALYSIS AND APPEARS ANXIOUS ABOUT THE PROGNOSIS. PT REASSURED AND REMINDED THAT THE MD WOULD BE COMMUNICATING RESULTS OF TESTS AND PLAN FOR TREATMENT MORE INFORMATION IS AVAILABLE. VSS, NO ACUTE CHANGES. TELE SHOWS AFIB AND IS CONTROLLED RATE IN THE 110'S WHEN RESTING, OTHERWISE UP TO 120'S WITH ACTIVITY. OVERALL STATUS: STABLE AND NO NEW CONCERNS THIS SHIFT. WILL REPORT OFF TO DAY SHIFT RN.
--- NOTE | 2021-05-28 14:21 | NUR ---
UPDATE DR. FONSECA AT BEDSIDE. PLAN FOR PT TO HAVE PERMACATH PLACED TOMORROW FOR DIALYSIS. CONSULT TO BE PLACED WITH DR. WHEAT. MEDICATIONS ORDERED PER PHYSICIAN, SEE EMAR.
--- NOTE | 2021-05-28 14:29 | NUR ---
MEDICATION CONFIRMATION PER PHARMACIST, CONFIRMED WITH DR. FONSECA REGARDING DUPLICATE STEROIDS.
--- NOTE | 2021-05-28 15:52 | NUR ---
Pastoral care visitation. Pt was recumbent in his bed and gave gesture for entry. He was slightly reserved at the onset but became more expressive proceeding. Empathic presence and exploration for current emotional well-being employed. Pt shared his internal ponderings and became tearful intermittently. Pt's demeanor softened and he was receptive to the emotional guidance and encouragement offered. Pt continued sharing while active listening was being provided. Pastoral support will remain available subsequently.
--- NOTE | 2021-05-28 19:46 | NUR ---
SHIFT SUMMARY PT ALERT AND ORIENTED X 4. HR STABLE, TACHY AT TIMES. BP STABLE. OXYGEN SATURATION MAINTAINED ABOVE 92% ON RA. PT ABLE TO TURN SELF IN BED. SBA TO COMMODE. PLAN FOR PT TO BE NPO AT MIDNIGHT FOR PERMACATH PLACEMENT TOMORROW. JARRET CONSULTED. PT TEARFUL AT TIMES D/T DX. PASTORAL CARE CONTACTED AND VISITED WITH PT THIS AFTERNOON. UPDATED ON PT STATUS. NO CP OR PRESSURE REPORTED. PT REPORTS PAIN THIS AM IN BACK. MEDICATED PER EMAR. PT RESTING AFTER MEDICATED. REPORT GIVEN TO RICKY GALEANA.
[2021-05-29 03:54] LABS: Hematocrit 41.3 % (37.0-53.0)
--- NOTE | 2021-05-29 04:08 | NUR ---
TACHYCARDIA / CALL TO MD CALL TO MD MESA TO REPORT PT AFIB, HR 110's-150, AVERAGING 120's. W/ NEW ORDER FOR ONE TIME 5MG IV LOPRESSOR PUSH & REPEAT DOSE 30 MIN LATER IF NO IMPROVEMENT.
[2021-05-29 04:23] LABS: Albumin, Blood 2.1 g/dL (3.4-5.0); Anion Gap 8 mmol/L (6-16); Blood Urea Nitrogen 125 mg/dL (8-24); Bun/Creatinine Ratio 24.9 (12.0-20.0); CO2, Blood 25 mmol/L (21-32); Calcium, Blood 7.7 mg/dL (8.5-10.1); Chloride, Blood 108 mmol/L (98-108); Creatinine, Blood 5.02 mg/dL (0.60-1.20); Glomerular Filtration Rate 11 (60-); Glucose, Blood 224 mg/dL (70-99); Magnesium, Blood 2.6 mg/dL (1.6-2.4); Potassium, Blood 5.5 mmol/L (3.5-5.5); Sodium, Blood 141 mmol/L (136-145)
[2021-05-29 04:24] LABS: Phosphorus, Blood 8.7 mg/dL (2.5-4.9)
--- NOTE | 2021-05-29 06:26 | NUR ---
SHIFT SUMMARY PT A&O W/ INTERMITTENT GARBLED SPEECH. [place]. SPO2 > 92% ON RA. PT C/O FEELING LIKE "CAN'T BREATHE" THOUGH SPO2 > 92%. BREATHING TX's PROVIDED BY RT. MONITOR SHOWING AFIB, HR 110's-130's. PT MEDICATED W/ IV LOPRESSOR PUSH X2 W/ LITTLE TO NO IMPROVEMENT (SEE VS & EMAR). PT LAYING IN BED, DENIES PAIN. DYE CATH PATENT & DRAINING DARK TEA COLOR URINE. PT NPO SINCE MIDNIGHT FOR PERMCATH PLACEMENT TODAY. MD FONSECA IN TO SEE PT THIS AM W/ INSTRUCTION FOR PT TO HAVE DIALYSIS FIRST THING THIS MORNING AFTER PERMCATH PLACEMENT.
[2021-05-29 15:10] LABS: A/G RATIO 0.7 (0.7-1.7); ALBUMIN 2.3 g/dL (2.9-4.4); ALPHA-1-GLOBULIN 0.3 g/dL (0.0-0.4); ALPHA-2-GLOBULIN 0.6 g/dL (0.4-1.0); GAMMA GLOBULIN 1.5 g/dL (0.4-1.8); GLOBULIN, TOTAL 3.5 g/dL (2.2-3.9); IMMUNOGLOBULIN A, QN, SERUM 659 mg/dL (61-437); IMMUNOGLOBULIN G, QN, SERUM 1283 mg/dL (603-1613); IMMUNOGLOBULIN M, QN, SERUM 234 mg/dL (15-143); M-SPIKE Comment: g/dL (Not Observed); PROTEIN, TOTAL, SERUM 5.8 g/dL (6.0-8.5)
--- NOTE | 2021-05-29 19:06 | NUR ---
SHIFT SUMMARY: PT HAS BEEN ALERT, CONFUSED AT TIMES WITH GARBLED SPEECH, COOPERATIVE WITH CARE EXCEPT DENYING HIS AFTERNOON PO DOSE OF METOPROLOL. PT CONTINUES TO MAINTAIN O2 SATS >92% ON RA. PT IN AFIB UNTIL APPROX 1400 WHEN HE CONVERTED TO SR AND MAINTAINED HR 70s-80s. PT WAS GIVEN ONE DOSE DIGOXIN IVP AT APPROX 1300 FOR ELEVATED HR. PT MAINTAINED NPO STATUS T/OUT THE SHIFT IN PREPARATION FOR PERMACATH PLACEMENT. INDWELLING DYE CONTINUES PATENT, DRAINING DARK JANUSZ URINE. AT APPROX 1830, GARBAGE MAN STAFF TO ROOM TO RETRIEVE PT AND LEAVE SHORTLY AFTER ENTERING ROOM D/TO PT "NOT WILLING TO PUT ON MASK". PT BECOMES AGITATED, EXITS BED AND SETS OFF BED ALARM, PULLING HIS IV OUT. CHARGE NURSE, MIRANDA, NOTIFIED OF EVENTS. UPON ENTERING ROOM, PT NOTED TO BE SWEARING AND SWINGING AT STAFF. NEW IV PLACED, PT MEDICATED PER ORDERS. HC STAFF RETURN FOR PT ACCOMPANIED BY DR WHEAT, PT TAKEN TO GARBAGE MAN. REPORT GIVEN TO RICKY GALEANA TO ASSUME CARE OF PT UPON RETURN FROM HC.
--- NOTE | 2021-05-29 19:32 | NUR ---
PERMCATH PLACEMENT / CARE ASSUMPTION PT GONE TO POWER SYSTEM OPERATOR FOR PERMCATH PLACEMENT @ APPROX 1900. PT BACK TO RM @ 1925 W/ NEW PERMCATH IN PLACE TO RCW. PT SLEEPING, DIFFICULT TO AROUSE. VSS. SPO2 > 92% ON RA. MONITOR SHOWING SR, HR 70's. DIALYSIS NURSE NOTIFIED OF PT's RETURN TO [facility].
--- NOTE | 2021-05-29 20:10 | NUR ---
DIALYSIS DIALYSIS NURSE IN FOR PT DIALYSIS TREATMENT AT THIS TIME.
--- NOTE | 2021-05-29 20:25 | NUR ---
NON-ROUTINE HOURS HEMODIALYSIS ORDERED BY DR FONSECA FOR PATIENT WITH UP-TRENDING SERUM POTASIUM CURRENTLY AT 5.5. NEW R CHEST PERM CATH INSTALLED THIS EVENING BY DR JARRET ELLIS CONFIRMED BY X-RAY.
--- NOTE | 2021-05-29 22:50 | NUR ---
UPDATE DIALYSIS COMPLETE. PERMCATH DRESSING CHANGED BY DIALYSIS NURSE. NEW DRESSING C/D/I. 2LB SAND BAG APPLIED TO SITE FOR FURTHER PRESSURE/PREVENTION OF BLEED. PT CONTINUES TO SLEEP, WAKING ONLY MOMENTARILY TO VERBAL STIMULI W/ TOUCH, UNABLE TO STAY AWAKE & FOLLOW INSTRUCTIONS. SCHEDULED PO MEDS HELD PER THIS REASON. BILAT SWR IN PLACE FOR PROTECTION OF LINES.
--- NOTE | 2021-05-30 04:16 | NUR ---
AGITATED PT AWAKE, PULLING AT RESTRAINTS, YELLING/CURSING AT STAFF. NEW PERMCATH SITE W/ NEW OOZING AFTER PT THRASHING IN BED. PRESSURE HELD TO SITE MAKING PT INCREASINGLY AGITATED. WHILE EXPLAINING NEED TO HOLD PRESSURE AT SITE PT SHOUTING "FUCK YOU! 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 IM ZYPREXA GIVEN W/ PT NO LONGER SHOUTING OR CURSING PROFANITIES. PT NOW LYING STILL, NEW DRESSING APPLIED ON TOP OF ORIGINAL PERMCATH DRESSING PER DIALYSIS NURSE INSTRUCTION IF RE-BLEED.
[2021-05-30 05:00] LABS: Digoxin (Lanoxin) 1.29 ug/mL (0.80-2.00)
--- NOTE | 2021-05-30 06:27 | NUR ---
END OF SHIFT PT VSS. SPO2 > 92% ON RA. MONITOR SHOWING SR, HR 70's-80's. PERMCATH TO R CHEST WALL W/ BLEED THIS SHIFT. DIALYSIS NURSE CHANGED DRESSING POST DIALYSIS TREATMENT. SMALL RE-BLEED LATER WHEN PT BECAME AGITATED & THRASHING IN BED. ONE TIME IM ZYPREXA GIVEN PER ORDERS. BILAT SWR IN PLACE PER ORDERS. PT NOW RESTING/SLEEPING QUIETLY IN . DYE CATH PATENT & DRAINING. BED ALARM ON.
[2021-05-30 07:33] LABS: Anion Gap 9 mmol/L (6-16); Blood Urea Nitrogen 95 mg/dL (8-24); Bun/Creatinine Ratio 23.5 (12.0-20.0); CO2, Blood 26 mmol/L (21-32); Calcium, Blood 7.7 mg/dL (8.5-10.1); Chloride, Blood 109 mmol/L (98-108); Creatinine, Blood 4.04 mg/dL (0.60-1.20); Glomerular Filtration Rate 15 (60-); Glucose, Blood 149 mg/dL (70-99); Magnesium, Blood 2.3 mg/dL (1.6-2.4); Phosphorus, Blood 7.5 mg/dL (2.5-4.9); Potassium, Blood 5.2 mmol/L (3.5-5.5); Sodium, Blood 144 mmol/L (136-145)
--- NOTE | 2021-05-30 08:30 | NUR ---
INITIAL ASSESSMENT: Patient awake and sitting up in bed. category director at bedside. Patient is oriented to self, month, year, and place. He denies pain at this time. HRR, SR in the 70s. LS dim on the left, insp/exp wheezing and coarse on the right. Patient biox low 90s on RA. BT+. PPP. Patient has some scaly brown patches to BLE below the knees and above the feet. Mottling noted to the knee caps, cap refill 6 seconds on knee caps. no edema present. VSS. category director at bedside. Patient denies other needs at this time. Call light in reach. Patient is calm and states he will not pull at his dialysis cath, restraints removed so patient can feed himself breakfast. Will continue to monitor.
--- NOTE | 2021-05-30 08:52 | NUR ---
hydro technician Michelle called, patient converted back to a-fib, rate in the 120s. metoprolol held this am until patient completes dialysis. Will keep an eye on the rate and notify .
[2021-05-30 10:11] LABS: ANTIGLOMERULAR BM AB 2 units (0-20)
--- NOTE | 2021-05-30 10:54 | NUR ---
Patient is c/o anxiety and SOB, medicated with Xanax. HR up into the 140s, talked with Dr. Shetty, she will order some IV dig to help with rate control. Patient states his anxiety has eased a little bit. Denies other needs at this time, call light in reach. Will continue to monitor.
--- NOTE | 2021-05-30 12:30 | NUR ---
ASSESSMENT IS UNCHANGED. VSS. BLOOD PRESSURE IS STILL TOO LOW TO GIVE METOPROLOL, AM DOSE HELD. IV DIG GIVEN PER MD ORDERS. PT STATES HE JUST WANTS TO SLEEP. HE DENIES OTHER NEEDS AT THIS TIME. CALL LIGHT IN REACH. BED ALARM ON FOR SAFETY. WILL CONTINUE TO MONITOR.
--- NOTE | 2021-05-30 15:30 | NUR ---
VSS. ASSESSMENT UNCHANGED. PT ASSISTED OOB TO THE CHAIR. PT SOB WITH EXERTION, PIVOT TRANSFER. CHAIR ALARM ON FOR SAFETY CALL LIGHT IN REACH. WILL CONTINUE TO MONITOR.
--- NOTE | 2021-05-30 15:51 | NUR ---
Spiritual care visit conducted. Patient is sitting up in bed and immediately tells me how frustrated he is that he keeps coughing but he is not able to produce anything. He then talks about his and his daughter (he seems alittle confused at times). He also shares about his disappointment with being "ill" and not being able to get out and do anything. He says he sleeps often to get through it all. Prayer and evangelical are not of huge value to him but he does allow me to say a prayer for him. I provide therapeutic listening and prayer. He voices appreciation for the visit and the prayer. I will continue to remain available to patient and family.
[2021-05-30 16:08] LABS: M-SPIKE, % Not Observed % (Not Observed); PROTEIN,TOTAL,URINE 102.3 mg/dL (Not Estab.)
--- NOTE | 2021-05-30 17:30 | NUR ---
IV ABX GIVEN. PT ASSISTED TO THE BSC, LG DARK BROWN BM. PT ASSISTED BACK TO BED. BED ALARM ON FOR SAFETY. CALL LIGHT IN REACH. WILL CONTINUE TO MONITOR.
--- NOTE | 2021-05-30 18:01 | NUR ---
SUMMARY: PATIENT HAS DONE WELL THROUGH OUT THE SHIFT. RESTRAINTS HAVE BEEN OFF SINCE THIS AM, PT HAS NOT ATTEMPTED TO PULL AT PERMACATH. BLOOD PRESSURE HAS BEEN A LITTLE LOW, A DOSE OF METOPROLOL HELD. PT CONVERTED BACK TO A-FIB WITH RVR AROUND 0852 THIS AM, IV DIGOXIN ORDERED. HEART RATE HAS STILL BEEN 120S WITH METOPROLOL AND DIGOXIN. PT HAD A COUPLE EPISODES OF ANXIETY TODAY BOTH WERE EASED WITH XANAX. PT WAS DIALYZED THIS AM. PERMACATH TO RIGHT UPPER CHEST WITH PRESSURE DRESSING, DIALYSIS WILL REASSESS IN THE AM, NO OOZING NOTED T/O THE SHIFT. NO OTHER ACUTE CHANGES THIS SHIFT. WILL REPORT TO ONCOMING RN.
--- NOTE | 2021-05-30 20:42 | NUR ---
CARE ASSUMPTION PT A&O X4 THIS EVENING, PLEASANT & COOPERATIVE. MONITOR SHOWS AFIB, HR 100-110's. NITRO-BID OINTMENT HELD D/T SYS BP 105 & PO METOPROLOL GIVEN. PT ON RA, 2L NC APPLIED FOR SPO2 > 92%. RT TO RM FOR BREATHING TX SHORTLY AFTER. PT W/ NON PRODUCTIVE COUGH. RCW PERMCATH DRESSING C/D/I. DYE CATH PATENT & DRAINING.
[2021-05-31 04:10] LABS: Hematocrit 38.2 % (37.0-53.0); Hemoglobin 12.1 g/dL (13.5-17.5)
[2021-05-31 04:30] LABS: Albumin, Blood 1.9 g/dL (3.4-5.0); Anion Gap 5 mmol/L (6-16); Blood Urea Nitrogen 68 mg/dL (8-24); Bun/Creatinine Ratio 19.5 (12.0-20.0); CO2, Blood 30 mmol/L (21-32); Calcium, Blood 7.8 mg/dL (8.5-10.1); Chloride, Blood 109 mmol/L (98-108); Creatinine, Blood 3.49 mg/dL (0.60-1.20); Glomerular Filtration Rate 17 (60-); Glucose, Blood 127 mg/dL (70-99); Phosphorus, Blood 5.2 mg/dL (2.5-4.9); Potassium, Blood 4.9 mmol/L (3.5-5.5); Sodium, Blood 144 mmol/L (136-145)
[2021-05-31 04:36] LABS: Magnesium, Blood 2.2 mg/dL (1.6-2.4)
[2021-05-31 05:11] LABS: Digoxin (Lanoxin) 2.13 ug/mL (0.80-2.00)
--- NOTE | 2021-05-31 06:08 | NUR ---
SHIFT SUMMARY PT CONTINUES TO BE A&O X4, PLEASANT & COOPERATIVE, MAKING JOKES T/O SHIFT. PT VSS. MONITOR SHOWING AFIB, HR 90-120. SPO2 > 92% ON RA. RCW PERMCATH DRESSING C/D/I. DYE CATH PATENT & DRAINING DARK JANUSZ URINE. PT ABLE TO REPOSITION SELF IN BED, BUT STAFF ASSISTING W/ PLACING PILLOWS & TURNING Q2H D/T PT FRAGILE SKIN W/ REDNESS NOTED TO COCCYX & BACK. PT ENCOURAGED TO REPOSITION SELF MORE FREQUENTLY.
[2021-05-31 08:10] LABS: HBSAG SCREEN Negative (Negative); HEP A AB, IGM Indeterminate (Negative); HEP B CORE AB, IGM Negative (Negative); HEP C VIRUS AB <0.1 (0.0-0.9)
--- NOTE | 2021-05-31 10:03 | NUR ---
[facility] Received report from charge, RN. Pt is a/o x 2 with baseline confusion. He is also [facility]. He is on RA. He was incontinent of bowel upon assessment and a bed bath was comleted with fresh linen and a brief put in place. Pt is currently in NSR. Possible status change today.
[2021-05-31 13:10] LABS: ANA DIRECT Negative (Negative); ANTIMYELOPEROXIDASE (MPO) ABS <9.0 U/mL (0.0-9.0); ANTIPROTEINASE 3 (PR-3) ABS <3.5 U/mL (0.0-3.5); CYTOPLASMIC (C-ANCA) <1:20 titer (Neg:<1:20); PERINUCLEAR (P-ANCA) <1:20 titer (Neg:<1:20)
--- NOTE | 2021-05-31 16:23 | NUR ---
Shift Summary Pt is a/o x 2. He follows directions but is magdalene and aggitated. He has been incontinent of BM throughout the day and has had 2 complete bed changes. King is patent. He has a stress test scheduled tomorrow so he will be NPO after midnight with no caffeine. He is medical status and has been assigned a room upstairs. Bed alarm has been on for patient safety. IV ABO/fluids have been infusing as ordered. He has a peripheral IV to his left upper arm. Pt is able to verbalize his needs but he needs reminding to use the call light for assist.
--- NOTE | 2021-05-31 17:44 | NUR ---
PT TRANSFERRED FROM PCU 16, AMBULATED INTO NEW BED. FOLLOWS COMMANDS. A/O X4, [place], [place] AND IN [facility]. SEEMS TO KNOW LIMITS. ORIENTED TO ROOM SET UP AND SAFETY. BED ALARM SET. COVID RULES WITH DOOR SHUT. ASSESSMENT OF PT WITH CRACKLES IN R BASE AND DIM R BASE. SATS 95% ROOM AIR. RESP EVEN UNLABORED. TOLERATING FLUIDS. DENIES PAIN. SENSATION INTACT ALL EXT. WILL REPORT TO NOC SHIFT.
--- NOTE | 2021-06-01 05:18 | NUR ---
SHIFT SUMMARY PATIENT ALERT AND ORIENTED X3. HAD NO COMPLAINTS OF PAIN. GETS DYSPNIC ON EXHERTION. NO ACUTE ISSUES NOTED. IV PATENT AND FLUSHED. BED IN LOWEST POSITION WITH WHEELS LOCKED AND ALARM ON. CALL LIGHT WITHIN REACH. REPORT GIVEN TO ONCOMING RICKY.
[2021-06-01 05:41] LABS: Hematocrit 34.5 % (37.0-53.0); Hemoglobin 10.8 g/dL (13.5-17.5)
[2021-06-01 06:17] LABS: Albumin, Blood 1.9 g/dL (3.4-5.0); Anion Gap 7 mmol/L (6-16); Blood Urea Nitrogen 91 mg/dL (8-24); Bun/Creatinine Ratio 20.5 (12.0-20.0); CO2, Blood 28 mmol/L (21-32); Calcium, Blood 8.1 mg/dL (8.5-10.1); Chloride, Blood 110 mmol/L (98-108); Creatinine, Blood 4.44 mg/dL (0.60-1.20); Digoxin (Lanoxin) 2.18 ug/mL (0.80-2.00); Glomerular Filtration Rate 13 (60-); Glucose, Blood 123 mg/dL (70-99); Magnesium, Blood 2.7 mg/dL (1.6-2.4); Phosphorus, Blood 5.6 mg/dL (2.5-4.9); Potassium, Blood 4.5 mmol/L (3.5-5.5); Sodium, Blood 145 mmol/L (136-145)
--- NOTE | 2021-06-01 07:57 | NUR ---
DIALYSIS PT REFUSED TX. SAID HE IS GOING HOME FOR 2 DAYS TO GET NUTRITION AND THEN COMING BACK. SAID HE IS TOO SKINNY. SAID HE USE TO BE 180 #. STARTED OUT YELLING AT ME, BUT WHEN I DIDN'T REACT TO IT, HE CALMED AND JUST SPOKE NORMAL TO ME. BUT HE WAS ADAMANT ABOUT LEAVING.
--- NOTE | 2021-06-01 10:11 | NUR ---
PATIENT ANGRY ALL MORNING. UPSET ABOUT NO FOOD PRIOR TO PROCEDURE. YELLS, RAISES VOICE OFTEN. THEN PATIENT REFUSES ONE DAY STRESS TEST. DAUGHTER CALLS AND THIS RN IS ABLE TO HEAR PATIENT YELL AT HER ABOUT WANTING TO LEAVE AND REFUSING ANY TESTS. REFUSES MEDS. ALERT TO SELF, WHERE HE IS AND DATE. SPEAKS IN COMPLETE SENTENCES. LEFT VOICE MAIL MESSAGE FOR ABOUT SIGNING PATIENT OUT AMA.
--- NOTE | 2021-06-01 10:16 | NUR ---
PATIENT REFUSES TELE. TAKES MOITOR LEADS OFF. STAINED GLASS WINDOW DESIGNER NOTIFIED.
--- NOTE | 2021-06-01 11:15 | NUR ---
DISCUSSED PATIENT WITH DAUGHTER , HERLINDA AND Marian CLAYAN. PATIENT DOES NOT WANT ANY PROCEDURES AND WANTS TO GO HOME. WHEN DISCUSSING WITH PATIENT ABOUT GETTING HIS HEART CHECKED STS "I NEED TO GO HOME AND GAIN SOME WEIGHT FIRST." ADVISED ABOUT PRIORITIES AND HE NEEDS TO HAVE HIS HEART CHECKED. PATIENT STS "IF HIS HEART STOPS THEN HE DIES."UNABLE TO CONVINCE PATIENT TO TAKE HIS MEDS, TO HAVE STRESS TEST OR TO STAY. LEFT MESSAGES ABOUT THIS ON VOICE MAIL AND TALKED TO FYLECIA. JONES , NURSING GASTROENTEROLOGIST, [facility] IF HE WANTS TO LEAVE WE CAN WHEELCHAIR HIM DOWN TO ENTRANCE. HERLINDA STS SHE WILL COME TO GET HIM.
--- NOTE | 2021-06-01 12:24 | NUR ---
TOBIAS WHEELS PATIENT DOWN TO DAUGHTERS CAR. THIS RN TALKS TO HERLINDA EXTENSIVELY ABOUT WHY PATIENT SIGNED OUT AMA. REFUSES; STRESS TEST, MEDS AND TELE. REFUSES ANY INTERVENTION. ADVISED IF ANY PROBLEMS TO CALL HIS DOCTOR IN [place] AND TO SEE WHAT THEY ADVISE. NO MEDS GIVEN .
--- NOTE | 2021-06-01 15:13 | NUR ---
PATIENT REFUSED MEDS. XANAX WAS BROUGHT INTO THE ROOM FOR PATIENT AND REFUSED. DUE TO PATIENT BEING COVID POSITIVE DISPOSED OF IN ROOM WITH DAI GALINDO RN WITNESS. NO XANAX GIVEN TO PATIENT.
== END 2021-06-01 12:00 | disposition left against medical advice (07) | DRG 871 ==
LOC: ER 07:43 → ERHOLD 07:44 → PCU 07:44 → ER 07:44 → PCU 07:44 → MEDS 05-31 17:06
PROVIDERS: Emergency Medicine; Internal Medicine; Internal Medicine Nephrology; Nurse Practitioner Acute Care; ADMIT Internal Medicine
PROC: 3E0333Z Introduction of Anti-inflammatory into Peripheral Vein, Percutaneous Approach (ICD-10-PCS; principal; 2021-05-25)
PROC: 8E0ZXY6 Isolation (ICD-10-PCS; 2021-05-25)
PROC: 5A1D70Z Performance of Urinary Filtration, Intermittent, Less than 6 Hours Per Day (ICD-10-PCS; 2021-05-30)
PROC: 0JH63XZ Insertion of Tunneled Vascular Access Device into Chest Subcutaneous Tissue and Fascia, Percutaneous Approach (ICD-10-PCS; 2021-05-30)
PROC: 02HV33Z Insertion of Infusion Device into Superior Vena Cava, Percutaneous Approach (ICD-10-PCS; 2021-05-30)
PROC: B5181ZA Fluoroscopy of Superior Vena Cava using Low Osmolar Contrast, Guidance (ICD-10-PCS; 2021-05-30)
DX: A41.89 Other specified sepsis (principal); U07.1 COVID-19; I21.A1 Myocardial infarction type 2; J12.82 Pneumonia due to coronavirus disease 2019; J69.0 Pneumonitis due to inhalation of food and vomit; I50.43 Acute on chronic combined systolic (congestive) and diastolic (congestive) heart failure; Z66 Do not resuscitate; N18.6 End stage renal disease; J44.1 Chronic obstructive pulmonary disease with (acute) exacerbation; N25.81 Secondary hyperparathyroidism of renal origin; N17.9 Acute kidney failure, unspecified; E87.2 Acidosis; E46 Unspecified protein-calorie malnutrition; J44.0 Chronic obstructive pulmonary disease with (acute) lower respiratory infection; E87.0 Hyperosmolality and hypernatremia; I42.8 Other cardiomyopathies; I13.2 Hypertensive heart and chronic kidney disease with heart failure and with stage 5 chronic kidney disease, or end stage renal disease; R45.1 Restlessness and agitation; F17.210 Nicotine dependence, cigarettes, uncomplicated; E78.5 Hyperlipidemia, unspecified; M81.0 Age-related osteoporosis without current pathological fracture; D63.1 Anemia in chronic kidney disease; D72.829 Elevated white blood cell count, unspecified; T38.0X5A Adverse effect of glucocorticoids and synthetic analogues, initial encounter; E88.09 Other disorders of plasma-protein metabolism, not elsewhere classified; F41.9 Anxiety disorder, unspecified; E87.5 Hyperkalemia; I48.0 Paroxysmal atrial fibrillation; E83.39 Other disorders of phosphorus metabolism; R65.20 Severe sepsis without septic shock; E86.9 Volume depletion, unspecified; Z53.29 Procedure and treatment not carried out because of patient's decision for other reasons; I34.0 Nonrheumatic mitral (valve) insufficiency; Z90.89 Acquired absence of other organs; Z98.52 Vasectomy status; Z88.5 Allergy status to narcotic agent; Z79.51 Long term (current) use of inhaled steroids; Z79.899 Other long term (current) drug therapy; Z79.52 Long term (current) use of systemic steroids; Z86.73 Personal history of transient ischemic attack (TIA), and cerebral infarction without residual deficits; Z79.82 Long term (current) use of aspirin; Z79.02 Long term (current) use of antithrombotics/antiplatelets; Z68.23 Body mass index [BMI] 23.0-23.9, adult; Z87.01 Personal history of pneumonia (recurrent); Z90.2 Acquired absence of lung [part of]; Z78.1 Physical restraint status; Z99.2 Dependence on renal dialysis
CPT/HCPCS: 36415; 36558; 36600; 51702; 71045; 76937; 77001; 80053; 80069; 80074; 80162; 81001; 81050; 82248; 82550; 82784; 82803; 83516; 83520; 83605; 83735; 83880; 84100; 84145; 84156; 84165; 84166; 84443; 84484; 84550; 85014; 85018; 85025; 86038; 86256; 86317; 86334; 86335; 87040; 87449; 93005; 93010; 93306; 94640; 94760; 94762; 96365; 96366; 96368; 96372; 96375; 96376; 99152; 99285-25; A9270; C1750; C1769; C1894; G0378; J0696; J1100; J1160; J1644; J1650; J1940; J2060; J2250; J2543; J2930; J3010; J7040; J7050; J7070; U0004

== ENCOUNTER 2021-06-18 13:38 | Inpatient (IN) | payer MEDICARE ==
[~2021-06-18] VITALS: Ht 182.9 cm; Wt 53.1 kg
[2021-06-18 14:27] LABS: BASOPHILS PERCENT AUTO 0 % (0-2); EOSINOPHILS PERCENT AUTO 0 % (0-6); IMMATURE GRAN ABSOLUTE AUTO 0.07 K/mm3 (0.00-0.10); IMMATURE GRAN PERCENT AUTO 1 % (0-1); LYMPHOCYTES PERCENT AUTO 9 % (21-46); MONOCYTES ABSOLUTE AUTO 0.44 K/mm3 (0.16-1.47); MONOCYTES PERCENT AUTO 7 % (4-13); Mean Corpuscular HGB Conc 29.7 g/dL (31.5-36.5); Mean Corpuscular Volume 94 fL (80-100); Mean Platelet Volume 11.3 fL (9.1-12.4); NEUTROPHILS ABSOLUTE AUTO 5.47 K/mm3 (1.96-9.15); NEUTROPHILS PERCENT AUTO 83 % (41-73); Platelet Count 322 K/mm3 (150-400); RDW Coefficient Variation 17.9 % (11.7-14.2); RDW Standard Deviation 58.2 fL (35.1-46.3); Red Blood Cell Count 1.57 M/mm3 (4.30-5.90); White Blood Cell Count 6.58 K/mm3 (4.00-11.30)
[2021-06-18 14:30] LABS: Hematocrit 14.8 % (37.0-53.0)
[2021-06-18 14:59] LABS: Magnesium, Blood 2.1 mg/dL (1.6-2.4); Troponin I 0.036 ng/mL (0.000-0.040)
[2021-06-18 15:05] LABS: Base Excess Venous -8.5 mmol/L; PCO2 Venous 44.8 mmHg (38-42); PO2 Venous 53.4 mmHg (38-42); pH Blood Venous 7.24 (7.34-7.37)
[2021-06-18 15:16] LABS: Albumin, Blood 1.5 g/dL (3.4-5.0); Albumin/Globulin Ratio 0.4 (0.8-1.8); Bilirubin, Total 0.4 mg/dL (0.1-1.0); Bun/Creatinine Ratio 23.1 (12.0-20.0); Calcium, Blood 6.5 mg/dL (8.5-10.1); Creatinine, Blood 7.35 mg/dL (0.60-1.20); Globulin, Blood 4.2 g/dL (2.2-4.0); Potassium, Blood 4.2 mmol/L (3.5-5.5); Total Protein, Blood 5.7 g/dL (6.4-8.2)
[2021-06-18 15:33] LABS: International Normalized Ratio 1.29; Prothrombin Time Results 13.7 Sec (9.7-11.5)
[2021-06-18 17:01] LABS: Hemoglobin 4.4 g/dL (13.5-17.5)
[2021-06-18 17:56] LABS: SARS-Cov-2 (COVID-19) PCR, MMC POSITIVE (NEGATIVE)
[2021-06-18 21:20] LABS: Hematocrit 19.7 % (37.0-53.0); Hemoglobin 6.1 g/dL (13.5-17.5)
--- NOTE | 2021-06-19 00:27 | NUR ---
STAT, NON-ROUTINE HOURS HEMODIALYSIS ORDERED BY DR FONSECA FOR COVID POS. PATIENT ADMITTED TO PCU STATUS ( ER HOLD ) WITH COMPLAINT OF HGB 4.4 NEEDING TRANSFUSION AND SOB. ADDITIONALLY, PATIENT HAS MISSED HIS CHRONIC OUTPATIENT DIALYSIS APPOINTMENTS FOR APPROXIMATELY ONE WEEK.
[2021-06-19 04:12] LABS: BASOPHILS ABSOLUTE AUTO 0.01 K/mm3 (0.00-0.23); BASOPHILS PERCENT AUTO 0 % (0-2); EOSINOPHILS PERCENT AUTO 0 % (0-6); Hematocrit 23.6 % (37.0-53.0); Hemoglobin 7.8 g/dL (13.5-17.5); IMMATURE GRAN PERCENT AUTO 1 % (0-1); LYMPHOCYTES ABSOLUTE AUTO 0.49 K/mm3 (0.84-5.20); LYMPHOCYTES PERCENT AUTO 4 % (21-46); MONOCYTES ABSOLUTE AUTO 1.31 K/mm3 (0.16-1.47); MONOCYTES PERCENT AUTO 12 % (4-13); Mean Corpuscular HGB 29.3 pg (26.0-34.0); Mean Corpuscular HGB Conc 33.1 g/dL (31.5-36.5); Mean Platelet Volume 10.9 fL (9.1-12.4); NEUTROPHILS ABSOLUTE AUTO 9.49 K/mm3 (1.96-9.15); NEUTROPHILS PERCENT AUTO 83 % (41-73); Platelet Count 255 K/mm3 (150-400); RDW Coefficient Variation 15.9 % (11.7-14.2); RDW Standard Deviation 50.2 fL (35.1-46.3); Red Blood Cell Count 2.66 M/mm3 (4.30-5.90)
[2021-06-19 04:31] LABS: Mean Corpuscular Volume 89 fL (80-100)
[2021-06-19 04:40] LABS: Albumin, Blood 1.6 g/dL (3.4-5.0); Albumin/Globulin Ratio 0.4 (0.8-1.8); Bilirubin, Total 1.2 mg/dL (0.1-1.0); Bun/Creatinine Ratio 21.4 (12.0-20.0); Calcium, Blood 6.3 mg/dL (8.5-10.1); Creatinine, Blood 4.53 mg/dL (0.60-1.20); Globulin, Blood 4.1 g/dL (2.2-4.0); Magnesium, Blood 1.6 mg/dL (1.6-2.4); Phosphorus, Blood 7.4 mg/dL (2.5-4.9); Potassium, Blood 3.5 mmol/L (3.5-5.5); Total Protein, Blood 5.7 g/dL (6.4-8.2)
--- NOTE | 2021-06-19 06:02 | NUR ---
SHIFT SUMMARY PT ALERT, ORIENTED TO SELF. PLEASANT. SP02>96% ON 12L OXYMIZER. TELEMETRY READS NSR, HR 70'S. PT DENIES PAIN. PT HAD ONE BLACK, SOFT BM THIS SHIFT. BLOOD INFUSED PER EMAR DURING THIS SHIFT. PT SLEPT MOST OF SHIFT. CALL LIGHT IN REACH. WILL GIVE REPORT TO ONCOMING NURSE.
--- NOTE | 2021-06-19 06:45 | NUR ---
UPDATE PT'S , SULY, CALLED FOR UPDATE. ASKED PT FOR PERMISSION TO SPEAK TO , PT STATED, "YES." UPDATED SULY ON PT. SULY STATED SHE WILL CALL AGAIN FOR UPDATE IN AFTERNOON.
--- NOTE | 2021-06-19 07:30 | NUR ---
ASSUMED CARE: REPORT RECEIVED FROM ISAAC Amezquita RN. ASSUMED CARE OF THIS PT AT APPROX 0700. ON ASSESSMENT, THE PT AWAKENS EASILY TO VERBAL STIMULUS & IS ABLE TO TELL THIS RN HIS NAME, & FOLLOW SIMPLE DIRECTIONS. HE RESPONDS "YES" WHEN ASKED "DO YOU KNOW WHERE WE ARE?" BUT THEN WILL NOT TELL THIS RN WHERE HE BELIEVES WE ARE WHEN PROMPTED FURTHER. LS DIM T/O, RESPIRATIONS SHALLOW. PT ON 12L OXYMIZER W/ O2 SATS > 95%. TELE SHOWS SR W/ PVCs, HR 70s. HYPOTENSION W/ SBP 90s DURING THE NIGHT, NOW IMPROVED W/ SBP 110s. NPO R/T PENDING GI CONSULT & GI BLEED ON ADMISSION. PT VOIDS W/O DIFFICULTY, PER REPORT. SKIN CONDITION OVERALL FRAGILE, INTACT. DIALYSIS PERMACATH TO R CHEST WALL. WILL CONTINUE TO MONITOR & UPDATE NEEDED.
--- NOTE | 2021-06-19 07:35 | NUR ---
DR FONSECA: PROVIDER AT BEDSIDE THIS AM TO SEE PT. HE STS THAT WE WILL CONTINUE TO MONITOR THE PT's ELECTROLYTES, NO DIALYSIS OR CHANGES TODAY.
[2021-06-19 09:33] LABS: Percent Saturation 68.6 % (20.0-50.0)
--- NOTE | 2021-06-19 12:40 | NUR ---
DR HERNANDEZ: PROVIDER HAS BEEN AT BEDSIDE THIS AM TO EVAL PT & HAS CALLED THIS RN W/ UPDATE. HE HAS ORDERED F/U H&H TONIGHT AT 1800. CURRENTLY, HE HAS NO PLANS TO SCOPE THIS PT. ORDERS PLACED FOR FULL LIQUID DIET & PT UPDATED ON POC. HIS MENTATION HAS IMPROVED SLIGHTLY & HE VERBALIZES UNDERSTANDING OF UPDATED PLAN, BUT IS STILL UNABLE TO STATE LOCATION, ETC.
[2021-06-19 12:58] LABS: BASOPHILS ABSOLUTE AUTO 0.01 K/mm3 (0.00-0.23); BASOPHILS PERCENT AUTO 0 % (0-2); EOSINOPHILS PERCENT AUTO 0 % (0-6); IMMATURE GRAN ABSOLUTE AUTO 0.08 K/mm3 (0.00-0.10); IMMATURE GRAN PERCENT AUTO 1 % (0-1); LYMPHOCYTES ABSOLUTE AUTO 0.43 K/mm3 (0.84-5.20); LYMPHOCYTES PERCENT AUTO 4 % (21-46); MONOCYTES ABSOLUTE AUTO 1.04 K/mm3 (0.16-1.47); MONOCYTES PERCENT AUTO 10 % (4-13); Mean Corpuscular HGB 29.3 pg (26.0-34.0); Mean Corpuscular Volume 92 fL (80-100); Mean Platelet Volume 11.1 fL (9.1-12.4); NEUTROPHILS ABSOLUTE AUTO 9.12 K/mm3 (1.96-9.15); NEUTROPHILS PERCENT AUTO 86 % (41-73); Platelet Count 266 K/mm3 (150-400); Red Blood Cell Count 2.73 M/mm3 (4.30-5.90); White Blood Cell Count 10.68 K/mm3 (4.00-11.30)
--- NOTE | 2021-06-19 15:30 | NUR ---
TRANSFER TO ROOM 210: REPORT HAS BEEN GIVEN TO CHASTITY Tello RN TO ASSUME CARE OF THIS PT. PT, CHART & ALL BELONGINGS HAVE BEEN TRANSFERRED TO ROOM 210 AT APPROX 1530. PT TAKEN OVER VIA BED BY ARCADIO HOLLOWAY.
--- NOTE | 2021-06-19 15:40 | NUR ---
ARRIVAL TO UNIT ARRIVES TO UNIT VIA HOSPITAL BED. ALERT & TALKING. SENTENCES ARE CLEAR. ORIENTED TO SELF & PLACE, BUT UNSURE WHAT HAS HAPPENED. LUNGS DIM W/ WEAK COUGH. 5L OXYMIZER. TELE IN PLACE. DIALYSIS PORT TO R CW; WNL. BED ALARM ON.
[2021-06-19 18:16] LABS: Hematocrit 23.8 % (37.0-53.0); Hemoglobin 7.8 g/dL (13.5-17.5)
[2021-06-20 05:08] LABS: BASOPHILS PERCENT AUTO 0 % (0-2); EOSINOPHILS PERCENT AUTO 0 % (0-6); Hematocrit 21.5 % (37.0-53.0); IMMATURE GRAN ABSOLUTE AUTO 0.06 K/mm3 (0.00-0.10); IMMATURE GRAN PERCENT AUTO 1 % (0-1); LYMPHOCYTES ABSOLUTE AUTO 0.56 K/mm3 (0.84-5.20); LYMPHOCYTES PERCENT AUTO 6 % (21-46); MONOCYTES ABSOLUTE AUTO 1.39 K/mm3 (0.16-1.47); MONOCYTES PERCENT AUTO 14 % (4-13); Mean Corpuscular HGB 29.8 pg (26.0-34.0); Mean Corpuscular HGB Conc 32.6 g/dL (31.5-36.5); Mean Corpuscular Volume 92 fL (80-100); Mean Platelet Volume 11.2 fL (9.1-12.4); NEUTROPHILS ABSOLUTE AUTO 8.22 K/mm3 (1.96-9.15); NEUTROPHILS PERCENT AUTO 80 % (41-73); Platelet Count 262 K/mm3 (150-400); RDW Coefficient Variation 17.3 % (11.7-14.2); RDW Standard Deviation 55.8 fL (35.1-46.3); Red Blood Cell Count 2.35 M/mm3 (4.30-5.90); White Blood Cell Count 10.23 K/mm3 (4.00-11.30)
[2021-06-20 05:50] LABS: Albumin, Blood 1.6 g/dL (3.4-5.0); Anion Gap 8 mmol/L (6-16); Blood Urea Nitrogen 118 mg/dL (8-24); Bun/Creatinine Ratio 20.6 (12.0-20.0); CO2, Blood 29 mmol/L (21-32); Calcium, Blood 6.2 mg/dL (8.5-10.1); Chloride, Blood 106 mmol/L (98-108); Creatinine, Blood 5.73 mg/dL (0.60-1.20); Glomerular Filtration Rate 10 (60-); Glucose, Blood 106 mg/dL (70-99); Magnesium, Blood 2.2 mg/dL (1.6-2.4); Sodium, Blood 143 mmol/L (136-145)
[2021-06-20 06:00] LABS: Phosphorus, Blood 8.9 mg/dL (2.5-4.9)
--- NOTE | 2021-06-20 07:39 | NUR ---
SHIFT SUMMARY PT A/O X3, RESPONDS APPROPRIATELY, TOLERATING PO, SMALL VOIDS BUT HAS HX OF ESRD AND IS ON DIALYSIS, CRIT HIGH PHOSPHORUS (FONSECA AWARE) MEDS ORDERED AND DIALYSIS PLANNED FOR TODAY. NO ACUTE EVENTS THIS SHIFT. CALL LIGHT IN REACH, REPORT GIVEN TO DAY RN.
--- NOTE | 2021-06-20 19:37 | NUR ---
SHIFT SUMMARY PATIENT ALERT AND ORIENTED X2, SOMETIMES FORGETFUL AND FREQUENTLY IRRITABLE/ANXIOUS. 4L O2 VIA NC TO KEEP SATS ABOVE 90%. DIALYSIS DONE TODAY AND 1 UNIT OF PRBC GIVEN. TOLERATING REGULAR DIET. USES URINAL IN BED. TELE NSR 89 WITH OCCASIONAL PVC'S. REPORT GIVEN TO FRATERNITY ADVISER RN.
[2021-06-21 05:24] LABS: BASOPHILS ABSOLUTE AUTO 0.01 K/mm3 (0.00-0.23); BASOPHILS PERCENT AUTO 0 % (0-2); EOSINOPHILS ABSOLUTE AUTO 0.01 K/mm3 (0.00-0.68); EOSINOPHILS PERCENT AUTO 0 % (0-6); Hematocrit 23.9 % (37.0-53.0); Hemoglobin 7.8 g/dL (13.5-17.5); IMMATURE GRAN ABSOLUTE AUTO 0.07 K/mm3 (0.00-0.10); IMMATURE GRAN PERCENT AUTO 1 % (0-1); LYMPHOCYTES ABSOLUTE AUTO 0.72 K/mm3 (0.84-5.20); LYMPHOCYTES PERCENT AUTO 8 % (21-46); MONOCYTES ABSOLUTE AUTO 1.63 K/mm3 (0.16-1.47); MONOCYTES PERCENT AUTO 17 % (4-13); Mean Corpuscular HGB 28.9 pg (26.0-34.0); Mean Corpuscular HGB Conc 32.6 g/dL (31.5-36.5); Mean Corpuscular Volume 89 fL (80-100); Mean Platelet Volume 10.7 fL (9.1-12.4); NEUTROPHILS ABSOLUTE AUTO 7.08 K/mm3 (1.96-9.15); NEUTROPHILS PERCENT AUTO 74 % (41-73); Platelet Count 261 K/mm3 (150-400); RDW Coefficient Variation 20.4 % (11.7-14.2); RDW Standard Deviation 63.5 fL (35.1-46.3); White Blood Cell Count 9.52 K/mm3 (4.00-11.30)
[2021-06-21 05:44] LABS: Albumin, Blood 1.6 g/dL (3.4-5.0); Anion Gap 5 mmol/L (6-16); Blood Urea Nitrogen 72 mg/dL (8-24); Bun/Creatinine Ratio 16.6 (12.0-20.0); CO2, Blood 33 mmol/L (21-32); Calcium, Blood 6.6 mg/dL (8.5-10.1); Chloride, Blood 105 mmol/L (98-108); Creatinine, Blood 4.35 mg/dL (0.60-1.20); Glomerular Filtration Rate 13 (60-); Glucose, Blood 106 mg/dL (70-99); Magnesium, Blood 1.8 mg/dL (1.6-2.4); Potassium, Blood 3.4 mmol/L (3.5-5.5); Sodium, Blood 143 mmol/L (136-145)
[2021-06-21 06:03] LABS: Phosphorus, Blood 4.2 mg/dL (2.5-4.9)
--- NOTE | 2021-06-21 06:20 | NUR ---
SHIFT SUMMARY PT RESTED WELL T/O NIGHT. AOX4/YOCHA DEHE. PT DENIES DISCOMFORT/NAUSEA T/O SHIFT. HYPOTENSIVE. TELEMETRY NSR 80s. 4L VIA NC, DENIES SOB AT REST. PT FORGETFUL AT TIMES THIS NOC SHIFT, BED ALARM ON FOR SAFETY. NO ACUTE CHANGES THIS SHIFT. CURRENTLY PT IS RESTING IN BED WITH CALL LIGHT IN REACH.
--- NOTE | 2021-06-21 08:42 | NUR ---
DR. SIERRA REQUESTED A BAG OF POTATO CHIPS FOR THE PT AFTER SEEING THE PT THIS AM. RECEIVED CALL FROM DIETARY REGARDING RENAL DIET. INFORMED DIETARY THAT THE ORDER WAS A REQUEST FROM THE PHYSICIAN.
--- NOTE | 2021-06-21 19:15 | NUR ---
SHIFT SUMMARY PT A/O X3 AND PLEASANT. COVID-19 INFECTION AND CURRENTLY SATTING >92% ON 3 LITERS O2 VIA NC. ON A RENAL DIET AND NON ADHERANT AT TIMES. PT TO HAVE DIALYSIS TOMORROW. PALLIATIVE CARE CONSULT CALLED. VSS. WILL REPORT TO KALE GARCÍA.
--- NOTE | 2021-06-22 04:25 | NUR ---
SHIFT SUMMARY PT RESTED INTERMITTENTLY T/O NIGHT, PT UNCOMFORTABLE IN BED AND WANTS TO GO HOME TO OWN BED. AAOX4/FOND DU LAC. PT DENIES PAIN/NAUSEA. LUNG SOUND DIMINISHED T/O NIGHT. 3.5L VIA NC, DENIES SOB AT REST. PERMACATH TO RIGHT CHEST WALL. SALINE LOCKED. GOOD PO INTAKE + OUTPUT, ENCOURAGED DIET ADHERANCE. PT ASSISTED WITH PERSONAL COMPUTER USE UPON ARRIVAL. NO ACUTE CHANGES OVER NIGHT. CURRENTLY PT IS SITTING UP IN BED ON PERSONAL COMPUTER WITH CALL LIGHT IN REACH.
[2021-06-22 05:49] LABS: Albumin, Blood 1.6 g/dL (3.4-5.0); Anion Gap 8 mmol/L (6-16); Blood Urea Nitrogen 101 mg/dL (8-24); Bun/Creatinine Ratio 20.7 (12.0-20.0); CO2, Blood 29 mmol/L (21-32); Calcium, Blood 6.3 mg/dL (8.5-10.1); Chloride, Blood 104 mmol/L (98-108); Creatinine, Blood 4.88 mg/dL (0.60-1.20); Glomerular Filtration Rate 12 (60-); Glucose, Blood 155 mg/dL (70-99); Magnesium, Blood 1.8 mg/dL (1.6-2.4); Phosphorus, Blood 3.8 mg/dL (2.5-4.9); Sodium, Blood 141 mmol/L (136-145)
--- NOTE | 2021-06-22 09:59 | NUR ---
PT TO DIALYSIS AT 0950
[2021-06-22] MEDS ORDERED: ATOR40TA PO (14:56)
[2021-06-22] MEDS ORDERED: ALBU90OI6 INH (14:56)
[2021-06-22] MEDS ORDERED: Calcium Acetat667 MG PO (14:57)
[2021-06-22] MEDS ORDERED: PANT40 PO (14:57)
[2021-06-22] MEDS ORDERED: TUDORZA PRESS400 MC1 INH (14:58)
[2021-06-22] MEDS ORDERED: Aspir 8181 MG PO (14:58)
[2021-06-22] MEDS ORDERED: AIRDUO DIGIHAL1 EAC2 INH (14:58)
[2021-06-22] MEDS ORDERED: FOLI1 PO (14:59)
--- NOTE | 2021-06-22 15:16 | NUR ---
Spoke with Primary RN Shania and discussed case. Pt being D/C shortly. Pt resting in bed upon arrival. Listened as Pt expresses ready to leave. Engaged in therapeutic conversation regarding goals of care. Discussed hospice as an option. Pt reports not ready for hospice and states he is going to do everything that is required to live. Educated on the importance of medical compliance. Pt appears distracted due to wanting to go home and unsure how well Pt is processing information. Palliative Care will remain available.
--- NOTE | 2021-06-22 16:08 | NUR ---
DISCHARGE PT DISCHARGED HOME FROM UNIT AT APROX 1608. WC TO CAR, 1 PERSON ASSIST IN. PT HAD DIALYSIS THIS AM AND IS VERY WEAK AT TIME OF DISCHARGE. EXPLAINED TO FAMILY THAT PT HAS BEEN INSISTING THAT HE IS LEAVING TODAY, TO THE POINT HE WAS GOING TO LEAVE AMA SO THE MD WAS CALLED TO SEE IF PT WAS GOING TO DISCHARGE, ORDER FOR HOME W/HH PLACED. MEDS FAXED TO [facility] IN [place]. SON PICKED PT UP TO DRIVE HIM.
== END 2021-06-22 15:45 | disposition home or self-care (01) | DRG 682 ==
LOC: ER 13:38 → PCU 16:21 → ERHOLD 16:21 → PCU 06-19 01:30 → SURS 06-19 15:24
PROVIDERS: Emergency Medicine; Family Medicine; Internal Medicine Gastroenterology; Internal Medicine Nephrology; Student in an Organized Health Care Education/Training Program; ADMIT Hospitalist
PROC: 30233N1 Transfusion of Nonautologous Red Blood Cells into Peripheral Vein, Percutaneous Approach (ICD-10-PCS; principal; 2021-06-18)
PROC: 5A1D70Z Performance of Urinary Filtration, Intermittent, Less than 6 Hours Per Day (ICD-10-PCS; 2021-06-18)
PROC: 8E0ZXY6 Isolation (ICD-10-PCS; 2021-06-18)
DX: N17.9 Acute kidney failure, unspecified (principal); U07.1 COVID-19; G93.49 Other encephalopathy; K92.2 Gastrointestinal hemorrhage, unspecified; D62 Acute posthemorrhagic anemia; E44.0 Moderate protein-calorie malnutrition; I50.22 Chronic systolic (congestive) heart failure; I13.2 Hypertensive heart and chronic kidney disease with heart failure and with stage 5 chronic kidney disease, or end stage renal disease; E87.0 Hyperosmolality and hypernatremia; E87.2 Acidosis; Z66 Do not resuscitate; N18.6 End stage renal disease; R56.9 Unspecified convulsions; E53.8 Deficiency of other specified B group vitamins; I48.0 Paroxysmal atrial fibrillation; J44.9 Chronic obstructive pulmonary disease, unspecified; D63.1 Anemia in chronic kidney disease; Z88.8 Allergy status to other drugs, medicaments and biological substances; Z88.5 Allergy status to narcotic agent; I27.20 Pulmonary hypertension, unspecified; Z98.890 Other specified postprocedural states; I34.0 Nonrheumatic mitral (valve) insufficiency; E88.09 Other disorders of plasma-protein metabolism, not elsewhere classified; E83.39 Other disorders of phosphorus metabolism; Z91.15 Patient's noncompliance with renal dialysis; E87.6 Hypokalemia
CPT/HCPCS: 36415; 36430; 70450; 71045; 80053; 80069; 82140; 82272; 82607; 82728; 82746; 82803; 83540; 83550; 83735; 84100; 84484; 85014; 85018; 85025; 85610; 85730; 86850; 86900; 86901; 86923; 93005; 93010; 94640; 94664; 94760; 96374; 96375; 99285-25; A9270; C9113; J0881; J2930; J3411; J3480; J7030; J7050; P9016; U0004

== ENCOUNTER 2021-06-23 03:06 | Inpatient (IN) | payer MEDICARE ==
[~2021-06-23] VITALS: Ht 182.9 cm; Wt 65.8 kg
[~2021-06-23 03:06] MED LIST changes: +AIRDUO DIGIHAL1 EAC2 INH; +ATOR40TA PO; +Calcium Acetat667 MG PO; +FOLI1 PO; +PANT40 PO
[2021-06-23 04:12] LABS: BASOPHILS ABSOLUTE AUTO 0.02 K/mm3 (0.00-0.23); BASOPHILS PERCENT AUTO 0 % (0-2); EOSINOPHILS PERCENT AUTO 0 % (0-6); Hematocrit 22.6 % (37.0-53.0); Hemoglobin 7.2 g/dL (13.5-17.5); IMMATURE GRAN ABSOLUTE AUTO 0.17 K/mm3 (0.00-0.10); IMMATURE GRAN PERCENT AUTO 1 % (0-1); LYMPHOCYTES ABSOLUTE AUTO 0.55 K/mm3 (0.84-5.20); LYMPHOCYTES PERCENT AUTO 3 % (21-46); MONOCYTES ABSOLUTE AUTO 1.77 K/mm3 (0.16-1.47); MONOCYTES PERCENT AUTO 11 % (4-13); Mean Corpuscular HGB 28.9 pg (26.0-34.0); Mean Corpuscular HGB Conc 31.9 g/dL (31.5-36.5); Mean Corpuscular Volume 91 fL (80-100); Mean Platelet Volume 10.9 fL (9.1-12.4); NEUTROPHILS PERCENT AUTO 85 % (41-73); NRBC ABSOLUTE 0.02 K/mm3 (0.00-0.02); NRBC Auto 0.1 /100 WBC (0.0-0.2); Platelet Count 332 K/mm3 (150-400); RDW Coefficient Variation 18.9 % (11.7-14.2); RDW Standard Deviation 59.4 fL (35.1-46.3); Red Blood Cell Count 2.49 M/mm3 (4.30-5.90); White Blood Cell Count 16.61 K/mm3 (4.00-11.30)
[2021-06-23 04:33] LABS: Alanine Aminotransfer (ALT/SGP 32 U/L (12-78); Albumin, Blood 1.7 g/dL (3.4-5.0); Albumin/Globulin Ratio 0.4 (0.8-1.8); Alk Phos 78 U/L (50-136); Anion Gap 8 mmol/L (6-16); Aspartate Aminotrans (AST/SGOT 22 U/L (12-37); Bilirubin, Total 0.4 mg/dL (0.1-1.0); Blood Urea Nitrogen 87 mg/dL (8-24); Bun/Creatinine Ratio 24.5 (12.0-20.0); CO2, Blood 30 mmol/L (21-32); Calcium, Blood 6.6 mg/dL (8.5-10.1); Chloride, Blood 103 mmol/L (98-108); Creatinine, Blood 3.55 mg/dL (0.60-1.20); Ethanol (Alcohol), Blood, Med <3 mg/dL; Glomerular Filtration Rate 17 (60-); Glucose, Blood 127 mg/dL (70-99); Potassium, Blood 3.9 mmol/L (3.5-5.5); Sodium, Blood 141 mmol/L (136-145); Total Protein, Blood 5.7 g/dL (6.4-8.2); Troponin I 0.043 ng/mL (0.000-0.040)
[2021-06-23 04:43] LABS: PCO2 Arterial 43.9 mmHg (35-45); PO2 Arterial 345 mmHg (80-100); pH Blood Arterial 7.44 (7.35-7.45)
[2021-06-23 05:13] LABS: International Normalized Ratio 1.16; Prothrombin Time Results 12.4 Sec (9.7-11.5)
--- NOTE | 2021-06-23 06:48 | NUR ---
CHANGE OF SHIFT ADMIT PT SETTLED INTO ROOM. ATTEND CHANGE AND LINEN CHANGE BEING PERFORMED AT THIS TIME. VITALS OBTAINED. ADMISSION COMPLETE ASIDE FROM ADMISSION ASSESSMENT. WILL NOTIFYN DAYSHIFT RN TO COMPLETE.
[2021-06-23 07:08] LABS: Hematocrit 21.2 % (37.0-53.0); Hemoglobin 6.8 g/dL (13.5-17.5)
[2021-06-23 08:33] LABS: Hematocrit 21.5 % (37.0-53.0); Hemoglobin 6.9 g/dL (13.5-17.5)
[2021-06-23 11:47] LABS: Hematocrit 20.7 % (37.0-53.0); Hemoglobin 6.6 g/dL (13.5-17.5)
--- NOTE | 2021-06-23 17:21 | NUR ---
SHIFT SUMMARY PATIENT ALERT AND ORIENTED THROUGHOUT THIS SHIFT. PATIENT SLEEPING THROUGH MUCH OF THIS SHIFT. PATIENT HGB TRENDING DOWN THIS SHIFT. ORDERS FOR 1 UNIT TRANSFUSION OF PRBCS RECEIVED. TRANSFUSED WITHOUT INCIDENT. AWAITING FOLLOW-UP CBC. PATIENT WITH 1 BM WITH MELENA APPEARANCE THIS SHIFT. GI IN TO CONSULT ON PATIENT THIS AFTERNOON, PLANS FOR SCOPE ONCE PATIENT BECOMES MORE STABLE. PATIENT CURRENTLY LYING IN BED RESTING.
[2021-06-23 17:50] LABS: Hematocrit 23.1 % (37.0-53.0); Hemoglobin 7.6 g/dL (13.5-17.5)
[2021-06-23 22:00] LABS: Hematocrit 21.9 % (37.0-53.0); Hemoglobin 6.9 g/dL (13.5-17.5)
--- NOTE | 2021-06-24 06:32 | NUR ---
SHIFT SUMMARY PATIENT DENIES PAIN, NAUSEA, AND SHORTNESS OF BREATH. MAINTAINING OXYGEN SATURATION ABOVE 92% ON 4L/NC. PATIENT HAD TWO TARRY STOOLS THIS SHIFT. PATIENT RECEIVED 1 BAG PRBC'S. PROTONIX DRIP RUNNING. USES URINAL INDEPENDENTLY AND BEDPAN WITH ASSIST. PATIENT PLEASANT AND COOPERATIVE WITH CARE.
[2021-06-24 10:04] LABS: BASOPHILS ABSOLUTE AUTO 0.01 K/mm3 (0.00-0.23); BASOPHILS PERCENT AUTO 0 % (0-2); EOSINOPHILS PERCENT AUTO 0 % (0-6); Hematocrit 24.5 % (37.0-53.0); IMMATURE GRAN ABSOLUTE AUTO 0.13 K/mm3 (0.00-0.10); IMMATURE GRAN PERCENT AUTO 1 % (0-1); LYMPHOCYTES ABSOLUTE AUTO 0.65 K/mm3 (0.84-5.20); LYMPHOCYTES PERCENT AUTO 4 % (21-46); MONOCYTES ABSOLUTE AUTO 1.94 K/mm3 (0.16-1.47); MONOCYTES PERCENT AUTO 11 % (4-13); Mean Corpuscular HGB 29.7 pg (26.0-34.0); Mean Corpuscular HGB Conc 32.7 g/dL (31.5-36.5); Mean Corpuscular Volume 91 fL (80-100); Mean Platelet Volume 10.8 fL (9.1-12.4); NEUTROPHILS ABSOLUTE AUTO 14.29 K/mm3 (1.96-9.15); NEUTROPHILS PERCENT AUTO 84 % (41-73); Platelet Count 241 K/mm3 (150-400); RDW Coefficient Variation 18.1 % (11.7-14.2); RDW Standard Deviation 58.4 fL (35.1-46.3); Red Blood Cell Count 2.69 M/mm3 (4.30-5.90); White Blood Cell Count 17.02 K/mm3 (4.00-11.30)
[2021-06-24 10:26] LABS: Albumin, Blood 1.6 g/dL (3.4-5.0); Albumin/Globulin Ratio 0.5 (0.8-1.8); Bilirubin, Total 0.5 mg/dL (0.1-1.0); Bun/Creatinine Ratio 31.5 (12.0-20.0); Calcium, Blood 6.8 mg/dL (8.5-10.1); Creatinine, Blood 3.71 mg/dL (0.60-1.20); Globulin, Blood 3.4 g/dL (2.2-4.0); Magnesium, Blood 1.8 mg/dL (1.6-2.4); Phosphorus, Blood 6.4 mg/dL (2.5-4.9)
--- NOTE | 2021-06-24 19:48 | NUR ---
SHIFT SUMMARY: NO ACUTE EVENTS TO REPORT THIS SHIFT. PT A&O; [place]; CALM AND COOPERATIVE WITH CARE. DIALYSIS TODAY; PT TOLERATED WELL. PROTONIX DRIP CONTINUING. REPORT GIVEN TO ONCOMING RN.
[2021-06-25 06:17] LABS: BASOPHILS ABSOLUTE AUTO 0.01 K/mm3 (0.00-0.23); BASOPHILS PERCENT AUTO 0 % (0-2); EOSINOPHILS PERCENT AUTO 0 % (0-6); Hematocrit 24.1 % (37.0-53.0); Hemoglobin 7.7 g/dL (13.5-17.5); IMMATURE GRAN ABSOLUTE AUTO 0.09 K/mm3 (0.00-0.10); IMMATURE GRAN PERCENT AUTO 1 % (0-1); LYMPHOCYTES ABSOLUTE AUTO 0.52 K/mm3 (0.84-5.20); LYMPHOCYTES PERCENT AUTO 4 % (21-46); MONOCYTES ABSOLUTE AUTO 1.62 K/mm3 (0.16-1.47); MONOCYTES PERCENT AUTO 12 % (4-13); Mean Corpuscular HGB 29.4 pg (26.0-34.0); Mean Corpuscular Volume 92 fL (80-100); Mean Platelet Volume 10.9 fL (9.1-12.4); NEUTROPHILS ABSOLUTE AUTO 11.22 K/mm3 (1.96-9.15); NEUTROPHILS PERCENT AUTO 83 % (41-73); Platelet Count 221 K/mm3 (150-400); RDW Coefficient Variation 17.8 % (11.7-14.2); RDW Standard Deviation 58.2 fL (35.1-46.3); Red Blood Cell Count 2.62 M/mm3 (4.30-5.90); White Blood Cell Count 13.46 K/mm3 (4.00-11.30)
[2021-06-25 06:35] LABS: Albumin, Blood 1.6 g/dL (3.4-5.0); Anion Gap 5 mmol/L (6-16); Blood Urea Nitrogen 66 mg/dL (8-24); CO2, Blood 33 mmol/L (21-32); Calcium, Blood 6.9 mg/dL (8.5-10.1); Chloride, Blood 104 mmol/L (98-108); Creatinine, Blood 2.75 mg/dL (0.60-1.20); Glomerular Filtration Rate 23 (60-); Glucose, Blood 76 mg/dL (70-99); Magnesium, Blood 1.7 mg/dL (1.6-2.4); Phosphorus, Blood 4.6 mg/dL (2.5-4.9); Potassium, Blood 3.6 mmol/L (3.5-5.5); Sodium, Blood 142 mmol/L (136-145)
--- NOTE | 2021-06-25 20:30 | NUR ---
SHIFT SUMMARY: NO ACUTE EVENTS TO REPORT THIS SHIFT. PT ALERT; OCC CONFUSION. CALM AND COOPERATIVE WITH CARE. DIET ADVANCED TO FULL LIQUIDS; PT C/O GI UPSET. NO DIALYSIS TODAY. PROTONIX CONTINUING. REPORT GIVEN TO ONCOMING RN.
[2021-06-26 05:31] LABS: BASOPHILS ABSOLUTE AUTO 0.02 K/mm3 (0.00-0.23); BASOPHILS PERCENT AUTO 0 % (0-2); EOSINOPHILS ABSOLUTE AUTO 0.01 K/mm3 (0.00-0.68); EOSINOPHILS PERCENT AUTO 0 % (0-6); Hematocrit 26.3 % (37.0-53.0); Hemoglobin 8.3 g/dL (13.5-17.5); IMMATURE GRAN ABSOLUTE AUTO 0.09 K/mm3 (0.00-0.10); IMMATURE GRAN PERCENT AUTO 1 % (0-1); LYMPHOCYTES ABSOLUTE AUTO 0.53 K/mm3 (0.84-5.20); LYMPHOCYTES PERCENT AUTO 4 % (21-46); MONOCYTES PERCENT AUTO 11 % (4-13); Mean Corpuscular HGB 29.2 pg (26.0-34.0); Mean Corpuscular HGB Conc 31.6 g/dL (31.5-36.5); Mean Corpuscular Volume 93 fL (80-100); Mean Platelet Volume 10.9 fL (9.1-12.4); NEUTROPHILS PERCENT AUTO 84 % (41-73); Platelet Count 230 K/mm3 (150-400); RDW Coefficient Variation 17.7 % (11.7-14.2); RDW Standard Deviation 58.4 fL (35.1-46.3); Red Blood Cell Count 2.84 M/mm3 (4.30-5.90); White Blood Cell Count 14.45 K/mm3 (4.00-11.30)
[2021-06-26 05:59] LABS: Albumin, Blood 1.6 g/dL (3.4-5.0); Anion Gap 4 mmol/L (6-16); Blood Urea Nitrogen 73 mg/dL (8-24); Bun/Creatinine Ratio 20.2 (12.0-20.0); CO2, Blood 32 mmol/L (21-32); Calcium, Blood 6.4 mg/dL (8.5-10.1); Chloride, Blood 105 mmol/L (98-108); Creatinine, Blood 3.62 mg/dL (0.60-1.20); Glomerular Filtration Rate 16 (60-); Glucose, Blood 87 mg/dL (70-99); Magnesium, Blood 2.1 mg/dL (1.6-2.4); Phosphorus, Blood 5.2 mg/dL (2.5-4.9); Potassium, Blood 3.5 mmol/L (3.5-5.5); Sodium, Blood 141 mmol/L (136-145)
--- NOTE | 2021-06-26 06:27 | NUR ---
SHIFT DAISY OCONNOR QUIET ALL MOST OF THE NIGHT. NOW ON FULL LIQUID DIET. STABLE NO ACUTE MEDICAL OCCURRENCE THIS SHIFT
[2021-06-27 05:09] LABS: Hemoglobin 8.5 g/dL (13.5-17.5)
[2021-06-27 05:33] LABS: Albumin, Blood 1.5 g/dL (3.4-5.0); Anion Gap 4 mmol/L (6-16); Blood Urea Nitrogen 42 mg/dL (8-24); Bun/Creatinine Ratio 14.5 (12.0-20.0); CO2, Blood 34 mmol/L (21-32); Calcium, Blood 6.5 mg/dL (8.5-10.1); Chloride, Blood 104 mmol/L (98-108); Creatinine, Blood 2.89 mg/dL (0.60-1.20); Glomerular Filtration Rate 21 (60-); Glucose, Blood 90 mg/dL (70-99); Magnesium, Blood 1.8 mg/dL (1.6-2.4); Phosphorus, Blood 4.9 mg/dL (2.5-4.9); Potassium, Blood 3.6 mmol/L (3.5-5.5); Sodium, Blood 142 mmol/L (136-145)
--- NOTE | 2021-06-27 07:46 | NUR ---
SHIFT SUMMARY NO ACUTE CHANGES THIS SHIFT. VSS. TELE NSR @73. PLAN TO HAVE EGD TODAY, PT HAS BEEN NPO SINCE MIDNIGHT. CALL LIGHT IN REACH.
--- NOTE | 2021-06-27 13:04 | NUR ---
History, Chart, Medications and Allergies reviewed before start of procedure.Patient confirms NPO status and agrees with scheduled surgery. PT HAS I&E WHEEZES T/O, COUGH IS MOIST, WILL NOTIFY ANESTHESIA AND ASK FOR UDN. PT NEEDED TWO STAFF ASSIST TO [facility]. TOLERATED TRANSFER WITHOUT PAIN. PT HAS ANXIETY, PROVIDED EMOTIONAL SUPPORT WITH GOOD RESULTS. ALL BELONINGS LEFT IN ROOM, PROVIDED ORAL CARE.
--- NOTE | 2021-06-27 14:21 | NUR ---
DOUNEB AND LIDOCAINE NEBULIZER GIVEN PER DR KAM.
--- NOTE | 2021-06-27 14:34 | NUR ---
06/27/21 1434 ELIZABETH BONILLA History, Chart, Medications and Allergies reviewed before start of procedure. 3-LEAD EKG REVIEWED WITH PHYSICIAN PRIOR TO START OF PROCEDURE. MONITOR INTACT WITH CONTINUOUS PULSE OXIMETRY AND INTERMITTENT BP. O2 VIA POM INTACT THROUGHOUT SEDATION/PROCEDURE. MAC WITH DR. HERNANDEZ.
--- NOTE | 2021-06-27 18:42 | NUR ---
SHIFT SUMMARY PT IS SITTING IN BED ON RM AIR. VERY ANXIOUS ABOUT BEING NPO, NOT HAVING HIS TEETH, AND "FEELING FORGOTTEN" DENIES PAIN OR WANT OF COMPANY. ENDOSCOPY TODAY FOUND ONE SMALL BLEED. EPINEPHRINE WAS ADMINISTERED AND BLEED WAS CAUTERIZED. PTS TOLERATED SURGERY WELL. MOOD AND ANXIETY IMPORVED WITH EATING POST SURGERY. PT WAS BROUGHT HIS TEETH WHICH ALSO EASED ANXIETY. WILL CONTINUE TO MONITOR.
[2021-06-28 05:48] LABS: BASOPHILS ABSOLUTE AUTO 0.01 K/mm3 (0.00-0.23); BASOPHILS PERCENT AUTO 0 % (0-2); EOSINOPHILS ABSOLUTE AUTO 0.02 K/mm3 (0.00-0.68); EOSINOPHILS PERCENT AUTO 0 % (0-6); Hematocrit 25.1 % (37.0-53.0); Hemoglobin 7.8 g/dL (13.5-17.5); IMMATURE GRAN ABSOLUTE AUTO 0.03 K/mm3 (0.00-0.10); IMMATURE GRAN PERCENT AUTO 0 % (0-1); LYMPHOCYTES ABSOLUTE AUTO 0.67 K/mm3 (0.84-5.20); LYMPHOCYTES PERCENT AUTO 6 % (21-46); MONOCYTES ABSOLUTE AUTO 1.76 K/mm3 (0.16-1.47); MONOCYTES PERCENT AUTO 17 % (4-13); Mean Corpuscular HGB 28.9 pg (26.0-34.0); Mean Corpuscular HGB Conc 31.1 g/dL (31.5-36.5); Mean Corpuscular Volume 93 fL (80-100); Mean Platelet Volume 11.2 fL (9.1-12.4); NEUTROPHILS ABSOLUTE AUTO 8.07 K/mm3 (1.96-9.15); NEUTROPHILS PERCENT AUTO 76 % (41-73); Platelet Count 196 K/mm3 (150-400); RDW Coefficient Variation 17.1 % (11.7-14.2); RDW Standard Deviation 56.6 fL (35.1-46.3); White Blood Cell Count 10.56 K/mm3 (4.00-11.30)
[2021-06-28 06:13] LABS: Albumin, Blood 1.5 g/dL (3.4-5.0); Anion Gap 5 mmol/L (6-16); Blood Urea Nitrogen 50 mg/dL (8-24); Bun/Creatinine Ratio 13.9 (12.0-20.0); CO2, Blood 31 mmol/L (21-32); Calcium, Blood 6.2 mg/dL (8.5-10.1); Chloride, Blood 104 mmol/L (98-108); Glomerular Filtration Rate 17 (60-); Glucose, Blood 94 mg/dL (70-99); Magnesium, Blood 1.9 mg/dL (1.6-2.4); Phosphorus, Blood 5.2 mg/dL (2.5-4.9); Potassium, Blood 3.5 mmol/L (3.5-5.5); Sodium, Blood 140 mmol/L (136-145)
--- NOTE | 2021-06-28 06:19 | NUR ---
SHIFT SUMMARY AOX3. SLOW TO RESPOND. VSS. TELE NSR @70. SPO2 >90% ON RA. DENIES PAIN, N/V OR SOB. PT URINE CRANBERRY COLOR 1X & THEN JANUSZ REST OF NIGHT. PROTONIX DRIP RUNNING. CALL LIGHT IN REACH.
--- NOTE | 2021-06-29 04:57 | NUR ---
PT A&OX4. VITALS STABLE. NO ACUTE EVENTS OVER NIGHT. PT CALM AND IS RESTING. CALL LIGHT AND NEEDED ITEMS WITHING REACH.
[2021-06-29 05:25] LABS: Hematocrit 24.9 % (37.0-53.0); Hemoglobin 7.8 g/dL (13.5-17.5)
[2021-06-29 05:57] LABS: Albumin, Blood 1.4 g/dL (3.4-5.0); Anion Gap 5 mmol/L (6-16); Blood Urea Nitrogen 31 mg/dL (8-24); Bun/Creatinine Ratio 11.2 (12.0-20.0); CO2, Blood 33 mmol/L (21-32); Calcium, Blood 6.7 mg/dL (8.5-10.1); Chloride, Blood 99 mmol/L (98-108); Creatinine, Blood 2.77 mg/dL (0.60-1.20); Glomerular Filtration Rate 22 (60-); Glucose, Blood 83 mg/dL (70-99); Magnesium, Blood 1.8 mg/dL (1.6-2.4); Phosphorus, Blood 4.1 mg/dL (2.5-4.9); Potassium, Blood 3.2 mmol/L (3.5-5.5); Sodium, Blood 137 mmol/L (136-145)
--- NOTE | 2021-06-29 18:45 | NUR ---
a+o, stopped tele, call light in reach, dialyis done today, iv infusing, rm air, sitting in bed looking a craigs' list and wondering how much money he can make by emptying his garage, will continue to monitor and treat until share report with noc nurse
--- NOTE | 2021-06-30 03:25 | NUR ---
SUMMARY NO NEW ISSUES NOTED. PT EAGER TO GO HOME. PT HAS SLEPT T/O SHIFT. PT CURRENTLY SLEEPING IN NO DISTRESS. CALL LIGHT IN REACH.
[2021-06-30 05:45] LABS: BASOPHILS ABSOLUTE AUTO 0.01 K/mm3 (0.00-0.23); BASOPHILS PERCENT AUTO 0 % (0-2); EOSINOPHILS ABSOLUTE AUTO 0.02 K/mm3 (0.00-0.68); EOSINOPHILS PERCENT AUTO 0 % (0-6); Hematocrit 25.3 % (37.0-53.0); Hemoglobin 7.9 g/dL (13.5-17.5); IMMATURE GRAN ABSOLUTE AUTO 0.04 K/mm3 (0.00-0.10); IMMATURE GRAN PERCENT AUTO 0 % (0-1); LYMPHOCYTES ABSOLUTE AUTO 0.77 K/mm3 (0.84-5.20); LYMPHOCYTES PERCENT AUTO 8 % (21-46); MONOCYTES ABSOLUTE AUTO 1.61 K/mm3 (0.16-1.47); MONOCYTES PERCENT AUTO 16 % (4-13); Mean Corpuscular HGB 28.6 pg (26.0-34.0); Mean Corpuscular HGB Conc 31.2 g/dL (31.5-36.5); Mean Corpuscular Volume 92 fL (80-100); Mean Platelet Volume 11.3 fL (9.1-12.4); NEUTROPHILS ABSOLUTE AUTO 7.39 K/mm3 (1.96-9.15); NEUTROPHILS PERCENT AUTO 75 % (41-73); Platelet Count 223 K/mm3 (150-400); RDW Coefficient Variation 16.3 % (11.7-14.2); RDW Standard Deviation 53.7 fL (35.1-46.3); Red Blood Cell Count 2.76 M/mm3 (4.30-5.90); White Blood Cell Count 9.84 K/mm3 (4.00-11.30)
[2021-06-30 06:10] LABS: Albumin, Blood 1.5 g/dL (3.4-5.0); Anion Gap 6 mmol/L (6-16); Blood Urea Nitrogen 28 mg/dL (8-24); Bun/Creatinine Ratio 10.6 (12.0-20.0); CO2, Blood 31 mmol/L (21-32); Calcium, Blood 6.6 mg/dL (8.5-10.1); Chloride, Blood 102 mmol/L (98-108); Creatinine, Blood 2.63 mg/dL (0.60-1.20); Glomerular Filtration Rate 24 (60-); Glucose, Blood 115 mg/dL (70-99); Magnesium, Blood 1.7 mg/dL (1.6-2.4); Phosphorus, Blood 3.1 mg/dL (2.5-4.9); Potassium, Blood 3.6 mmol/L (3.5-5.5); Sodium, Blood 139 mmol/L (136-145)
--- NOTE | 2021-06-30 12:14 | NUR ---
DISCHARGE NOTE THIS RN REMOVED IV PER DOCUMENTATION. DC INSTRUCTIONS AND MEDICATIONS REVIEWED WITH PT WHO VERBALIZED UNDERSTANDING. PT DRESSED SELF IN HOME CLOTHING. BELONGINGS GATHERED FROM ROOM. PT ASSISTED INTO WHEELCHAIR AND LEFT BUILDING WITH MANAGER IN HOME TO PRIVATE VEHICLE WITH BELONGINGS PRESENT.
== END 2021-06-30 12:06 | disposition home health service (06) | DRG 377 ==
LOC: ER 03:06 → MEDS 04:25 → ENPENDDIS 06-30 10:02 → MEDS 06-30 12:06
PROVIDERS: Emergency Medicine; Family Medicine; Internal Medicine Nephrology; Student in an Organized Health Care Education/Training Program; ADMIT Internal Medicine
PROC: 30233N1 Transfusion of Nonautologous Red Blood Cells into Peripheral Vein, Percutaneous Approach (ICD-10-PCS; principal; 2021-06-23)
PROC: 5A1D70Z Performance of Urinary Filtration, Intermittent, Less than 6 Hours Per Day (ICD-10-PCS; 2021-06-23)
PROC: 0W3P8ZZ Control Bleeding in Gastrointestinal Tract, Via Natural or Artificial Opening Endoscopic (ICD-10-PCS; 2021-06-27)
DX: K26.4 Chronic or unspecified duodenal ulcer with hemorrhage (principal); J69.0 Pneumonitis due to inhalation of food and vomit; N18.6 End stage renal disease; G92 Toxic encephalopathy; D62 Acute posthemorrhagic anemia; I50.32 Chronic diastolic (congestive) heart failure; I13.2 Hypertensive heart and chronic kidney disease with heart failure and with stage 5 chronic kidney disease, or end stage renal disease; I48.20 Chronic atrial fibrillation, unspecified; E44.0 Moderate protein-calorie malnutrition; Z68.1 Body mass index [BMI] 19.9 or less, adult; N25.81 Secondary hyperparathyroidism of renal origin; R64 Cachexia; R65.10 Systemic inflammatory response syndrome (SIRS) of non-infectious origin without acute organ dysfunction; I34.0 Nonrheumatic mitral (valve) insufficiency; J44.9 Chronic obstructive pulmonary disease, unspecified; F41.9 Anxiety disorder, unspecified; E88.09 Other disorders of plasma-protein metabolism, not elsewhere classified; F17.210 Nicotine dependence, cigarettes, uncomplicated; D63.1 Anemia in chronic kidney disease; M81.0 Age-related osteoporosis without current pathological fracture; E83.51 Hypocalcemia; E83.39 Other disorders of phosphorus metabolism; E87.6 Hypokalemia; E87.70 Fluid overload, unspecified; Z90.49 Acquired absence of other specified parts of digestive tract; Z98.52 Vasectomy status; Z98.890 Other specified postprocedural states; Z88.5 Allergy status to narcotic agent; Z88.8 Allergy status to other drugs, medicaments and biological substances; Z90.89 Acquired absence of other organs; Z86.73 Personal history of transient ischemic attack (TIA), and cerebral infarction without residual deficits; Z99.2 Dependence on renal dialysis; Z95.828 Presence of other vascular implants and grafts; Z79.899 Other long term (current) drug therapy; Z79.82 Long term (current) use of aspirin; Z79.51 Long term (current) use of inhaled steroids; I25.2 Old myocardial infarction; Z91.15 Patient's noncompliance with renal dialysis; Z86.16 Personal history of COVID-19
CPT/HCPCS: 36415; 36430; 36600; 70450; 71045; 76770; 80053; 80069; 82140; 82330; 82803; 83605; 83690; 83735; 84100; 84145; 84484; 85014; 85018; 85025; 85610; 86850; 86900; 86901; 86923; 93005; 93010; 94640; 94760; 94762; 97162; 97166; 97530; 99285-25; A9270; C9113; G0480; J0171; J0295; J0610; J0881; J1100; J2001; J2704; J7030; J7050; J7120; P9016

== ENCOUNTER 2021-11-11 22:34 | Inpatient (IN) | payer MEDICARE ==
[~2021-11-11] VITALS: Ht 182.9 cm; Wt 59.0 kg
[2021-11-11 22:57] LABS: BASOPHILS ABSOLUTE AUTO 0.04 K/mm3 (0.00-0.23); BASOPHILS PERCENT AUTO 0 % (0-2); EOSINOPHILS ABSOLUTE AUTO 0.07 K/mm3 (0.00-0.68); EOSINOPHILS PERCENT AUTO 1 % (0-6); Hematocrit 38.2 % (37.0-53.0); Hemoglobin 11.6 g/dL (13.5-17.5); IMMATURE GRAN ABSOLUTE AUTO 0.06 K/mm3 (0.00-0.10); IMMATURE GRAN PERCENT AUTO 0 % (0-1); LYMPHOCYTES ABSOLUTE AUTO 0.76 K/mm3 (0.84-5.20); LYMPHOCYTES PERCENT AUTO 5 % (21-46); MONOCYTES ABSOLUTE AUTO 1.43 K/mm3 (0.16-1.47); MONOCYTES PERCENT AUTO 10 % (4-13); Mean Corpuscular HGB 25.4 pg (26.0-34.0); Mean Corpuscular HGB Conc 30.4 g/dL (31.5-36.5); Mean Corpuscular Volume 84 fL (80-100); Mean Platelet Volume 10.5 fL (9.1-12.4); NEUTROPHILS ABSOLUTE AUTO 12.22 K/mm3 (1.96-9.15); NEUTROPHILS PERCENT AUTO 84 % (41-73); Platelet Count 278 K/mm3 (150-400); RDW Coefficient Variation 18.6 % (11.7-14.2); RDW Standard Deviation 56.2 fL (35.1-46.3); Red Blood Cell Count 4.57 M/mm3 (4.30-5.90); White Blood Cell Count 14.58 K/mm3 (4.00-11.30)
[2021-11-11 23:17] LABS: Alanine Aminotransfer (ALT/SGP 23 U/L (12-78); Albumin/Globulin Ratio 0.6 (0.8-1.8); Alk Phos 85 U/L (50-136); Anion Gap 5 mmol/L (6-16); Aspartate Aminotrans (AST/SGOT 16 U/L (12-37); Bilirubin, Total 0.2 mg/dL (0.1-1.0); Blood Urea Nitrogen 43 mg/dL (8-24); Bun/Creatinine Ratio 20.5 (12.0-20.0); CO2, Blood 29 mmol/L (21-32); Calcium, Blood 8.7 mg/dL (8.5-10.1); Chloride, Blood 106 mmol/L (98-108); Globulin, Blood 4.7 g/dL (2.2-4.0); Glomerular Filtration Rate 31 (60-); Glucose, Blood 134 mg/dL (70-99); Potassium, Blood 4.7 mmol/L (3.5-5.5); Sodium, Blood 140 mmol/L (136-145); Total Protein, Blood 7.7 g/dL (6.4-8.2); Troponin I <0.015 ng/mL (0.000-0.040)
[2021-11-11 23:50] LABS: Influenza A, PCR NEGATIVE (NEGATIVE); Influenza B, PCR NEGATIVE (NEGATIVE); Resp Syncytial Virus, PCR NEGATIVE (NEGATIVE); SARS-Cov-2 (COVID-19) PCR, MMC NEGATIVE (NEGATIVE)
[2021-11-12] MEDS ORDERED: FURO80 PO (03:04)
[2021-11-12] MEDS ORDERED: KLOR-CON M1010 MEQ PO (03:05)
[2021-11-12 04:10] LABS: BASOPHILS ABSOLUTE AUTO 0.03 K/mm3 (0.00-0.23); BASOPHILS PERCENT AUTO 0 % (0-2); EOSINOPHILS ABSOLUTE AUTO 0.01 K/mm3 (0.00-0.68); EOSINOPHILS PERCENT AUTO 0 % (0-6); Hematocrit 36.4 % (37.0-53.0); Hemoglobin 11.1 g/dL (13.5-17.5); IMMATURE GRAN ABSOLUTE AUTO 0.06 K/mm3 (0.00-0.10); IMMATURE GRAN PERCENT AUTO 0 % (0-1); LYMPHOCYTES ABSOLUTE AUTO 0.77 K/mm3 (0.84-5.20); LYMPHOCYTES PERCENT AUTO 5 % (21-46); MONOCYTES PERCENT AUTO 9 % (4-13); Mean Corpuscular HGB 25.2 pg (26.0-34.0); Mean Corpuscular HGB Conc 30.5 g/dL (31.5-36.5); Mean Corpuscular Volume 83 fL (80-100); Mean Platelet Volume 10.3 fL (9.1-12.4); NEUTROPHILS ABSOLUTE AUTO 12.08 K/mm3 (1.96-9.15); NEUTROPHILS PERCENT AUTO 85 % (41-73); Platelet Count 259 K/mm3 (150-400); RDW Coefficient Variation 18.4 % (11.7-14.2); RDW Standard Deviation 55.8 fL (35.1-46.3); White Blood Cell Count 14.25 K/mm3 (4.00-11.30)
[2021-11-12 04:34] LABS: Albumin, Blood 2.8 g/dL (3.4-5.0); Albumin/Globulin Ratio 0.6 (0.8-1.8); Bilirubin, Total 0.4 mg/dL (0.1-1.0); Bun/Creatinine Ratio 22.2 (12.0-20.0); Calcium, Blood 8.6 mg/dL (8.5-10.1); Creatinine, Blood 2.12 mg/dL (0.60-1.20); Globulin, Blood 4.5 g/dL (2.2-4.0); Potassium, Blood 5.2 mmol/L (3.5-5.5); Total Protein, Blood 7.3 g/dL (6.4-8.2)
--- NOTE | 2021-11-12 07:54 | NUR ---
PT ARRIVED TO THE ROOM AT 0745. HE IS ALERT AND ORIENTED. SOMEWHAT ANXIOUS REGARDING CARE. PT ASSISTED TO THE BED. DR. COX NOTIFIED OF CONSULT. WILL CONTINUE TO MONITOR.
[2021-11-12] MEDS ORDERED: ALBU2.5V5 INH (08:19)
--- NOTE | 2021-11-12 10:00 | NUR ---
WHEN PT ARRIVED FROM ER TEMPORARY DIALYSIS PORT OPEN TO AIR. MALORIE MALAVE LOG POND WORKER CALLED, SHE CLEANSED THE AREA AND PLACED A DRESSING OVER THE SITE.
--- NOTE | 2021-11-12 17:28 | NUR ---
SHIFT SUMMARY PT ADMITTED TODAY FOR R HIP FX. PT DENIES NEED FOR PAIN MEDICATION. HE IS ABLE TO REPOSITION HIMSELF IN BED. ALLEVYN DRESSIN PLACED TO COCCYX, THE SKIN IS REDDENED BUT BLANCHES. PLAN FOR SURGERY TOMORROW. VSS. WILL MONITOR UNTIL NOC RN.
--- NOTE | 2021-11-13 03:23 | NUR ---
SHIFT SUMMARY: PT. AOX4, SKIN NOTED DRY & SCALY. PRESENCE OF EXPIRATORY WHEEZING & NON PRODUCTIVE COUGH. COMPLAINTS OF R HIP PAIN MEDICATED, SEE EMAR.USES URINAL INDEPENDENTLY, VOIDING CLEAR YELLOW URINE.EDUCATED ON CALLING FOR ANY NEEDS USING CALL LIGHT, PT. VERBALIZED UNDERSTANDING, CLWR.NO S/S OF RESP./CV DISTRESS NOTED.WILL CONTINUE TO MONITOR.
--- NOTE | 2021-11-13 08:58 | NUR ---
PHYSICIAN NOTIFIED OF PT BP OF 153/111. SUGGESTED POSSIBLE MEDICATION FOR HTN. PHYSICIAN COMFORTABLE WITH CURRENT BLOOD PRESSURE AND NO ORDERS RECEIVED AT THIS TIME. WILL RECHECK BP PRN.
--- NOTE | 2021-11-13 11:22 | NUR ---
PT RECENTLY TO [facility] BY BED WITH ASSIST FROM OTHER RN (ANDREA). PT LS WITH WHEEZE TO RIGHT SIDE OF LUNGS. PT REPORTS WOULD TAKE A BREATHING TX IF ABLE. PT NOW HAVING BREATHING TX. PT A/O. History, Chart, Medications and Allergies reviewed before start of procedure.Patient confirms NPO status and agrees with scheduled surgery. Pre-Op teaching done. Pt verbalizes understanding.
--- NOTE | 2021-11-13 11:26 | NUR ---
PT TAKEN TO DAY SURGERY AT THIS TIME. DAUGHTER UPDATED.
--- NOTE | 2021-11-13 11:52 | NUR ---
PT LS BETTER ALTHOUGH STILL SLIGHT WHEEZE ON RIGHT SIDE, WILL DISCUSS WITH ANESTHESIA.
--- NOTE | 2021-11-13 12:13 | NUR ---
DISCUSSED LS WITH DR PERALES. LISTENED TO LS. ORDER FOR DELILAH PLACED.
--- NOTE | 2021-11-13 12:27 | NUR ---
DR SULY GARBER BEEN TO SEE PT. DISCUSSED PT NEEDING TO HAVE DUONEB STILL PER DR PERALES. DOUNEB NOW STARTED.
--- NOTE | 2021-11-13 12:42 | NUR ---
PT RECENTLY TO OR, DUONEB BEEN GIVEN WELL VERSED. DISCUSSED GIVING THESE MEDS WITH DONOR SERVICES COORDINATOR AND ANESTHESIA. DISCUSSED ORDERING ANCEF BUT NOT RECIEVED YET HERE IN DAYSURGERY.
--- NOTE | 2021-11-13 15:17 | NUR ---
PT BACK FROM PACU AT 1415. PT VERY SLEEPY AND AROUSABLE TO TOUCH. AQUACEL CDI BUT TOES DUSKY AND COLD BILATERALLY. BP WNL.
--- NOTE | 2021-11-13 16:40 | NUR ---
PT EXPERIENCING HTN POST OP. PHYSICIAN NOTIFIED AND PHYSICIAN IS COMFORTABLE WITH CURRENT BP SINCE IT SEEMS TO BE ACUTE IN NATURE. NO NEW ORDERS AT THIS TIME.
--- NOTE | 2021-11-13 18:32 | NUR ---
SHIFT SUMMARY PT POD#0 FOR R HIP REPAIR. AQUACEL DRESSING IN PLACE AND CDI. PT AWAKE AND ORIENTED. O2 SATS SLIGHTLY LOW RANGING FROM 88-91 BUT PT REFUSES TO WEAR O2. TOLERATING PO INTAKE AND VOIDING. NO C/O PAIN AT THIS TIME. PT HAD EPISODE OF HTN AFTER SURGERY BUT BP NOW STABLE. VSS. WILL REPORT TO KALE GARCÍA.
--- NOTE | 2021-11-14 04:41 | NUR ---
SHIFT SUMMARY: PT. AOX4, EXPRESSED SATISFACTION WITH R HIP SURGERY, R HIP PINNING POD1. TYLENOL 650 MG PO GIVEN FOR COMPLAINTS OF HEADACHE FROM RUNNY NOSE PER PT., ALSO PT. STATED HE HAS ALLERGIC RHINITIS & VERY SENSITIVE WITH CLEANING STUFF/BLEACH. VOIDING WELL VIA THE URINAL. EATING & DRINKING WELL. WAS USING HIS LAPTOP MOST OF THE TIME THROUGHOUT THE NIGHT. EXPIRATORY WHEEZING & COUGHING NOTED SAME HIS ADMISSION DAY. DENIES PAIN TO R HIP. SMALL AQUACEL TO R HIP C/D/I. NO NEW UNUSUALITIES NOTED.
--- NOTE | 2021-11-15 06:21 | NUR ---
ALERT AND ORIENTED X4. HAD AN UNEVENTFUL NIGHT. NO C/O PAIN. BENADRYL GIVEN FOR ALLERGIES. VOIDED CLEAR YELOW URINE. VSS.
--- NOTE | 2021-11-15 17:54 | NUR ---
SHIFT SUMMARY PATIENT ALERT ND ORIENTED THROUGHOUT SHIFT. SBA WITH FWW AND GAIT BELT TO AMBULATE IN ROOM AND WAGNER. AQUACEL C/D/I TO LEFT HIP. PATIENT DENIES PAIN. FATIGUES EASILY WITH AMBULATION, REQUESTS OCC BREATHING TREATMENTS. OCC PRODUCTIVE COUGH. TOLERATING REGULAR DIET AND LIQUIDS. SALINE LOCKED. PLAN TO DISCHARGE HOME WITH HOME HEALTH.
--- NOTE | 2021-11-16 04:00 | NUR ---
ALER AND ORIENTED X4. DRINKING AND VOIDING THRU THE NIGHT. DENIES PAIN. AMBULATED ONCE TO THE WINDOW; WAS VERY TIRED BY THE TIME CAME BACK TO BED. DRESSING ON PLACE ON RIGHT HIP CDI.
[2021-11-16 04:47] LABS: BASOPHILS ABSOLUTE AUTO 0.02 K/mm3 (0.00-0.23); BASOPHILS PERCENT AUTO 0 % (0-2); EOSINOPHILS ABSOLUTE AUTO 0.08 K/mm3 (0.00-0.68); EOSINOPHILS PERCENT AUTO 1 % (0-6); Hematocrit 41.2 % (37.0-53.0); Hemoglobin 12.5 g/dL (13.5-17.5); IMMATURE GRAN ABSOLUTE AUTO 0.07 K/mm3 (0.00-0.10); IMMATURE GRAN PERCENT AUTO 1 % (0-1); LYMPHOCYTES ABSOLUTE AUTO 0.88 K/mm3 (0.84-5.20); LYMPHOCYTES PERCENT AUTO 7 % (21-46); MONOCYTES ABSOLUTE AUTO 1.54 K/mm3 (0.16-1.47); MONOCYTES PERCENT AUTO 12 % (4-13); Mean Corpuscular HGB Conc 30.3 g/dL (31.5-36.5); Mean Corpuscular Volume 82 fL (80-100); Mean Platelet Volume 11.3 fL (9.1-12.4); NEUTROPHILS ABSOLUTE AUTO 10.63 K/mm3 (1.96-9.15); NEUTROPHILS PERCENT AUTO 80 % (41-73); Platelet Count 237 K/mm3 (150-400); RDW Standard Deviation 56.3 fL (35.1-46.3); Red Blood Cell Count 5.01 M/mm3 (4.30-5.90); White Blood Cell Count 13.22 K/mm3 (4.00-11.30)
[2021-11-16 05:45] LABS: Bun/Creatinine Ratio 35.2 (12.0-20.0); Calcium, Blood 8.7 mg/dL (8.5-10.1); Creatinine, Blood 2.3 mg/dL (0.60-1.20); Percent Saturation 13.1 % (20.0-50.0); Potassium, Blood 4.6 mmol/L (3.5-5.5)
[2021-11-16] MEDS ORDERED: XARELTO20 MG PO (12:39)
--- NOTE | 2021-11-16 14:42 | NUR ---
1415 DISCHARGED TO HOME WITH DAUGHTER. PT VERBALIZES UNDERSTANDING OF DISCHARGE INSTRUCTIONS. PT ANTONY PO FOOD AND FLUIDS WITHOUT NAUSEA. PT DENIES NEED FOR ANY PAIN MEDS AND DENIES PAIN. PT RECOMMENDED A FRONWHEELED WALKER FOR PATIENT AND PATIENT DECLINES. PT STATES HE HAS A PERFECTLY GOOD 4 WHEELED WALKER AT HOME AND THAT HE WILL USE IT. RIGHT HIP DRESSING CLEAN, DRY AND INTACT. PT DISCHARGED WITH AQUACELL DRESSINGS. RIGHT CHEST DIALYSIS CATHETER IN PLACE. PT OOB WITH WALKER AND STANDBY ASSIST AND STEADY ON FEET
== END 2021-11-16 14:00 | disposition home or self-care (01) | DRG 480 ==
LOC: ER 22:34 → SURS 11-12 00:27 → ERHOLD 11-12 00:27 → SURS 11-12 07:24
PROVIDERS: Emergency Medicine; Internal Medicine; Orthopaedic Surgery; ADMIT Internal Medicine
PROC: 0QH734Z Insertion of Internal Fixation Device into Left Upper Femur, Percutaneous Approach (ICD-10-PCS; principal; 2021-11-13 12:30)
DX: S72.011A Unspecified intracapsular fracture of right femur, initial encounter for closed fracture (principal); E43 Unspecified severe protein-calorie malnutrition; I13.0 Hypertensive heart and chronic kidney disease with heart failure and stage 1 through stage 4 chronic kidney disease, or unspecified chronic kidney disease; Z68.1 Body mass index [BMI] 19.9 or less, adult; R64 Cachexia; I50.22 Chronic systolic (congestive) heart failure; Z20.822 Contact with and (suspected) exposure to COVID-19; N18.30 Chronic kidney disease, stage 3 unspecified; J44.9 Chronic obstructive pulmonary disease, unspecified; F41.9 Anxiety disorder, unspecified; I48.0 Paroxysmal atrial fibrillation; Z86.16 Personal history of COVID-19; D63.1 Anemia in chronic kidney disease; M81.0 Age-related osteoporosis without current pathological fracture; Z28.21 Immunization not carried out because of patient refusal; F17.210 Nicotine dependence, cigarettes, uncomplicated; Z90.89 Acquired absence of other organs; Z79.899 Other long term (current) drug therapy; Z88.6 Allergy status to analgesic agent; Z88.5 Allergy status to narcotic agent; Z98.890 Other specified postprocedural states; Z86.73 Personal history of transient ischemic attack (TIA), and cerebral infarction without residual deficits; W18.30XA Fall on same level, unspecified, initial encounter
CPT/HCPCS: 0241U; 36415; 71045; 73502; 73700; 80048; 80053; 82728; 83540; 83550; 83880; 84484; 85025; 93005; 93010; 94640; 94760; 96374; 97110; 97116; 97162; 97166; 97530; 97535; 99285-25; A9270; C1713; C1769; J0171; J0690; J1100; J1885; J2250; J2370; J2405; J2704; J3010; J7030

== ENCOUNTER → 2022-05-09 | Outpatient (CLI) | payer MEDICARE ==
[~2022-05-09] MED LIST changes: +ALBU2.5V5 INH; +Bactrim Ds Tab1 EACH PO; +CEPHALEXIN500 M1 PO; +FURO80 PO; +KLOR-CON M1010 MEQ PO; +XARELTO20 MG PO
== END | disposition home or self-care (01) ==
LOC: LAB SHORT 13:30 → LAB 13:30
DX: N39.0 Urinary tract infection, site not specified (principal)
CPT/HCPCS: 87086

== ENCOUNTER 2022-10-15 19:13 | Emergency (ER) | payer MEDICARE ==
[~2022-10-15] VITALS: Ht 182.9 cm; Wt 59.0 kg
[2022-10-15 20:05] LABS: BASOPHILS ABSOLUTE AUTO 0.02 K/mm3 (0.00-0.23); BASOPHILS PERCENT AUTO 0 % (0-2); EOSINOPHILS ABSOLUTE AUTO 0.06 K/mm3 (0.00-0.68); EOSINOPHILS PERCENT AUTO 1 % (0-6); Hematocrit 43.2 % (37.0-53.0); Hemoglobin 13.5 g/dL (13.5-17.5); IMMATURE GRAN ABSOLUTE AUTO 0.04 K/mm3 (0.00-0.10); IMMATURE GRAN PERCENT AUTO 0 % (0-1); LYMPHOCYTES ABSOLUTE AUTO 0.77 K/mm3 (0.84-5.20); LYMPHOCYTES PERCENT AUTO 8 % (21-46); MONOCYTES ABSOLUTE AUTO 1.15 K/mm3 (0.16-1.47); MONOCYTES PERCENT AUTO 13 % (4-13); Mean Corpuscular HGB Conc 31.3 g/dL (31.5-36.5); Mean Corpuscular Volume 90 fL (80-100); NEUTROPHILS ABSOLUTE AUTO 7.15 K/mm3 (1.96-9.15); NEUTROPHILS PERCENT AUTO 78 % (41-73); Platelet Count 176 K/mm3 (150-400); RDW Coefficient Variation 16.2 % (11.7-14.2); RDW Standard Deviation 53.5 fL (35.1-46.3); Red Blood Cell Count 4.82 M/mm3 (4.30-5.90); White Blood Cell Count 9.19 K/mm3 (4.00-11.30)
[2022-10-15 20:20] LABS: International Normalized Ratio 1.02; Prothrombin Time Results 10.7 Sec (9.7-11.5)
[2022-10-15 20:24] LABS: Albumin, Blood 3.4 g/dL (3.4-5.0); Albumin/Globulin Ratio 0.9 (0.8-1.8); Bilirubin, Total 0.5 mg/dL (0.1-1.0); Bun/Creatinine Ratio 24.2 (12.0-20.0); Calcium, Blood 8.8 mg/dL (8.5-10.1); Creatinine, Blood 1.9 mg/dL (0.60-1.20); Globulin, Blood 3.9 g/dL (2.2-4.0); Potassium, Blood 4.7 mmol/L (3.5-5.5); Total Protein, Blood 7.3 g/dL (6.4-8.2)
[2022-10-15 20:31] LABS: Source, Urine Voided
[2022-10-15 20:45] LABS: Appearance, Urine Clear (Clear); Bilirubin, Urine Neg (Neg); Blood, Urine 4+ (Neg); Glucose Qualitative, Urine Neg (Neg); Ketones, Urine Neg (Neg); Leukocyte Esterase, Urine Neg (Neg); Nitrite, Urine Neg (Neg); Protein, Urine 3+ (Neg); Specific Gravity, Urine 1.015 (1.003-1.022); Urobilinogen, Urine NORM (Normal)
[2022-10-15 20:47] LABS: Influenza A, PCR NEGATIVE (NEGATIVE); Influenza B, PCR NEGATIVE (NEGATIVE); Resp Syncytial Virus, PCR NEGATIVE (NEGATIVE); SARS-Cov-2 (COVID-19) PCR, MMC NEGATIVE (NEGATIVE)
[2022-10-15 20:58] LABS: Color, Urine Pale Yellow (P-Yellow)
[2022-10-15 21:00] LABS: Bacteria Few /hpf; Squamous Epithelial Cells Few /hpf (Few); Transitional Epithelial Cells Few /hpf (0-Rare)
[2022-10-15 21:01] LABS: Hyaline Casts 0-2 /lpf (0-2)
[2022-10-15 21:02] LABS: Red Blood Cells, Urine 25-50 /hpf (0-2)
[2022-10-15] MEDS ORDERED: LIDO700A20 TOP (21:41)
[2022-10-15] MEDS ORDERED: Prednisone20 MG PO (21:41)
== END 2022-10-15 21:51 | disposition home or self-care (01) ==
LOC: ER 19:13
PROVIDERS: Emergency Medicine
DX: J44.9 Chronic obstructive pulmonary disease, unspecified (principal); R07.89 Other chest pain; I11.0 Hypertensive heart disease with heart failure; I50.9 Heart failure, unspecified; Z88.5 Allergy status to narcotic agent; Z88.8 Allergy status to other drugs, medicaments and biological substances; F17.210 Nicotine dependence, cigarettes, uncomplicated; Z86.73 Personal history of transient ischemic attack (TIA), and cerebral infarction without residual deficits; Z20.822 Contact with and (suspected) exposure to COVID-19
CPT/HCPCS: 0241U; 36415; 71046; 80053; 81001; 83880; 84484; 85025; 85610; 93005; 93010; A9270; J7512

== ENCOUNTER 2022-11-19 22:35 | Emergency (ER) | payer MEDICARE ==
[~2022-11-19] VITALS: Ht 182.9 cm; Wt 59.0 kg
[2022-11-19 23:15] LABS: BASOPHILS ABSOLUTE AUTO 0.03 K/mm3 (0.00-0.23); BASOPHILS PERCENT AUTO 0 % (0-2); EOSINOPHILS ABSOLUTE AUTO 0.01 K/mm3 (0.00-0.68); EOSINOPHILS PERCENT AUTO 0 % (0-6); Hemoglobin 14.4 g/dL (13.5-17.5); IMMATURE GRAN ABSOLUTE AUTO 0.06 K/mm3 (0.00-0.10); IMMATURE GRAN PERCENT AUTO 1 % (0-1); LYMPHOCYTES ABSOLUTE AUTO 0.66 K/mm3 (0.84-5.20); LYMPHOCYTES PERCENT AUTO 5 % (21-46); MONOCYTES ABSOLUTE AUTO 1.35 K/mm3 (0.16-1.47); MONOCYTES PERCENT AUTO 11 % (4-13); Mean Corpuscular Volume 87 fL (80-100); Mean Platelet Volume 11.2 fL (9.1-12.4); NEUTROPHILS ABSOLUTE AUTO 10.09 K/mm3 (1.96-9.15); NEUTROPHILS PERCENT AUTO 83 % (41-73); Platelet Count 218 K/mm3 (150-400); RDW Coefficient Variation 15.2 % (11.7-14.2); RDW Standard Deviation 49.1 fL (35.1-46.3); Red Blood Cell Count 5.15 M/mm3 (4.30-5.90)
[2022-11-19 23:41] LABS: Albumin, Blood 3.1 g/dL (3.4-5.0); Albumin/Globulin Ratio 0.7 (0.8-1.8); Bilirubin, Total 0.5 mg/dL (0.1-1.0); Bun/Creatinine Ratio 28.3 (12.0-20.0); Calcium, Blood 8.9 mg/dL (8.5-10.1); Creatinine, Blood 2.3 mg/dL (0.60-1.20); Globulin, Blood 4.5 g/dL (2.2-4.0); Potassium, Blood 4.6 mmol/L (3.5-5.5); Total Protein, Blood 7.6 g/dL (6.4-8.2)
[2022-11-19] MEDS ORDERED: LEVFLO500 PO (23:47)
[2022-11-20 00:18] LABS: Source, Urine Clean Catch
[2022-11-20 00:29] LABS: Bilirubin, Urine Neg (Neg); Blood, Urine 5+ (Neg); Glucose Qualitative, Urine Neg (Neg); Ketones, Urine 1+ (Neg); Leukocyte Esterase, Urine 3+ (Neg); Nitrite, Urine Pos (Neg); Protein, Urine 4+ (Neg); Urobilinogen, Urine NORM (Normal)
[2022-11-20 01:10] LABS: Appearance, Urine Hazy (Clear); Color, Urine Red (P-Yellow)
[2022-11-20 01:12] LABS: Bacteria Mod /hpf; Red Blood Cells, Urine TNTC /hpf (0-2); Squamous Epithelial Cells Rare /hpf (Few)
[2022-11-20] MEDS ORDERED: ALBU90OI INH (01:22)
[2022-11-20] MEDS ORDERED: CEFP200 PO (01:22)
== END 2022-11-20 01:34 | disposition home or self-care (01) ==
LOC: ER 22:35
PROVIDERS: Emergency Medicine; Student in an Organized Health Care Education/Training Program
DX: N39.0 Urinary tract infection, site not specified (principal); R31.9 Hematuria, unspecified; J44.1 Chronic obstructive pulmonary disease with (acute) exacerbation; I13.0 Hypertensive heart and chronic kidney disease with heart failure and stage 1 through stage 4 chronic kidney disease, or unspecified chronic kidney disease; I50.9 Heart failure, unspecified; N18.9 Chronic kidney disease, unspecified; F17.210 Nicotine dependence, cigarettes, uncomplicated; Z86.73 Personal history of transient ischemic attack (TIA), and cerebral infarction without residual deficits; Z88.5 Allergy status to narcotic agent; Z88.8 Allergy status to other drugs, medicaments and biological substances; Z79.52 Long term (current) use of systemic steroids
CPT/HCPCS: 36415; 51798; 71046; 80053; 81001; 84484; 85025; 93005; 93010; 99284-25

== ENCOUNTER 2022-12-04 22:31 | Observation (INO) | payer MEDICARE ==
[~2022-12-04] VITALS: Ht 182.9 cm; Wt 49.7 kg
[~2022-12-04 22:31] MED LIST changes: +CEFP200 PO; +LEVFLO500 PO
[2022-12-04 22:57] LABS: Source, Urine Clean Catch
[2022-12-04 23:05] LABS: Appearance, Urine Cloudy (Clear); Bilirubin, Urine Neg (Neg); Blood, Urine 5+ (Neg); Color, Urine Yellow (P-Yellow); Glucose Qualitative, Urine Neg (Neg); Ketones, Urine Neg (Neg); Leukocyte Esterase, Urine 3+ (Neg); Nitrite, Urine Neg (Neg); Protein, Urine 3+ (Neg); Urobilinogen, Urine NORM (Normal)
[2022-12-04 23:12] LABS: Red Blood Cells, Urine 50-100 /hpf (0-2)
[2022-12-04 23:13] LABS: Bacteria Many /hpf; Squamous Epithelial Cells Rare /hpf (Few); Transitional Epithelial Cells Rare /hpf (0-Rare)
[2022-12-04 23:52] LABS: BASOPHILS ABSOLUTE AUTO 0.03 K/mm3 (0.00-0.23); BASOPHILS PERCENT AUTO 0 % (0-2); EOSINOPHILS ABSOLUTE AUTO 0.06 K/mm3 (0.00-0.68); EOSINOPHILS PERCENT AUTO 0 % (0-6); Hematocrit 42.5 % (37.0-53.0); Hemoglobin 13.6 g/dL (13.5-17.5); IMMATURE GRAN ABSOLUTE AUTO 0.08 K/mm3 (0.00-0.10); IMMATURE GRAN PERCENT AUTO 1 % (0-1); LYMPHOCYTES PERCENT AUTO 8 % (21-46); MONOCYTES ABSOLUTE AUTO 1.23 K/mm3 (0.16-1.47); MONOCYTES PERCENT AUTO 9 % (4-13); Mean Corpuscular HGB 28.4 pg (26.0-34.0); Mean Corpuscular Volume 89 fL (80-100); Mean Platelet Volume 10.8 fL (9.1-12.4); NEUTROPHILS ABSOLUTE AUTO 10.99 K/mm3 (1.96-9.15); NEUTROPHILS PERCENT AUTO 82 % (41-73); Platelet Count 233 K/mm3 (150-400); RDW Standard Deviation 48.7 fL (35.1-46.3); Red Blood Cell Count 4.79 M/mm3 (4.30-5.90); White Blood Cell Count 13.39 K/mm3 (4.00-11.30)
[2022-12-05 00:12] LABS: Albumin, Blood 2.8 g/dL (3.4-5.0); Albumin/Globulin Ratio 0.7 (0.8-1.8); Bilirubin, Total 0.3 mg/dL (0.1-1.0); Bun/Creatinine Ratio 22.8 (12.0-20.0); Calcium, Blood 8.3 mg/dL (8.5-10.1); Creatinine, Blood 1.58 mg/dL (0.60-1.20); Globulin, Blood 4.2 g/dL (2.2-4.0)
[2022-12-05 00:36] LABS: Influenza A, PCR NEGATIVE (NEGATIVE); Influenza B, PCR NEGATIVE (NEGATIVE); Resp Syncytial Virus, PCR NEGATIVE (NEGATIVE); SARS-Cov-2 (COVID-19) PCR, MMC NEGATIVE (NEGATIVE)
--- NOTE | 2022-12-05 05:48 | NUR ---
TORADOL: TORADOL D/C R/T DECREASED KIDNEY FX PER DR MESA.
--- NOTE | 2022-12-05 06:58 | NUR ---
MILL WASHER SUMMARY NEW ADMIT FROM THE ED TONIGHT. PT AAOX4 AND VERY PLEASANT. ADMITTED FOR L3 COMPRESSION FX WELL A LINGERING UTI PT HAS BEEN TREATING FOR OVER A WEEK. PT HAS ADVANCED COPD BUT IS ON RA AT BASELINE. PT MAIN COMPLAINT IS LOWER BACK PAIN. PT STATES "I'VE BEEN FALLING ONCE IN A WHILE ALL MY LIFE". PT UNABLE TO RECALL A SPECIFIC EVENT WHERE HE MAY HAVE FRACTURED HIS BACK BUT DOES RECALL RECENTLY THAT HIS ALMOST WENT OVER EDGE OF RAMP ON HER ELECTRIC WHEELCHAIR AND HE HAD TO LIFT HIS AND THE CHAIR UP BACK ON TO THE RAMP. MEDICATED WITH 50 MCG IV FENTANYL WHICH PT DID REPORT "TOOK THE EDGE OFF". VSS, WILL CONTINUE TO MONITOR.
--- NOTE | 2022-12-05 16:26 | NUR ---
SHIFT SUMMARY L3 COMPRESSION FX. PT MOBILIZING WELL IN THE ROOM. WALKS WITH SBA AND FWW. PAIN MANAGED PER EMAR. PT REPORTS TOLERABLE AT MOST TIMES, WITH OCCASIONAL SPASMS. DENIES SOB AT THIS TIME. PLAN IS TO CONTINUE TO WORK WITH PT/OT.
--- NOTE | 2022-12-06 04:43 | NUR ---
VSS. PT SLEPT ON AND OFF T/O THE NIGHT. MEDICATED FOR PAIN ONCE WITH PRN. PT VOIDING INDEPENDENTLY @BEDSIDE WITH URINAL. NO BM'S NOTED. TOLLERATING PO INTAKE W/O N/V. T/O THE NIGHT PT EXPRESSED INCREASING CONCERN AND FRUSTRATION OVER NOT BEING TAKEN OUTSIDE TO SMOKE. PT EDUCATED ON PT SAFETY AND STAFF PRESENCE ON THE FLOOR. PT APPEARS TO BE UNRECEPTIVE TO EDUCATION ATTEMPTS. PT STATED HE FEELS IF HE IS BEING "PUNISHED" AT THIS TIME OVER HIS SMOKING HABITS. OBTAINED NICOTINE PATCH, PT RELUCTANT TO USE BUT THEN ACCEPTED. PLAN FOR PT TO WORK WITH THERAPY TO DAY AND POSSIBLY D/C HOME. THE PATIENT IS CURRENTLY RESTING @BEDSIDE, IN NO DISTRESS, CALL LIGHT IN REACH
--- NOTE | 2022-12-06 09:12 | NUR ---
PT REFUSED NICOTINE PATCH HE DID NOT FEEL IT WAS HELPFUL. ALSO REFUSED MIRALAX HE STATES HE IS NOT HAVING ANY CHANGE IN BM
[2022-12-06 09:23] LABS: Hemoglobin 12.8 g/dL (13.5-17.5); Mean Corpuscular HGB 28.5 pg (26.0-34.0); Mean Corpuscular Volume 89 fL (80-100); Mean Platelet Volume 10.3 fL (9.1-12.4); Platelet Count 199 K/mm3 (150-400); RDW Coefficient Variation 15.1 % (11.7-14.2); RDW Standard Deviation 48.9 fL (35.1-46.3); Red Blood Cell Count 4.49 M/mm3 (4.30-5.90); White Blood Cell Count 9.67 K/mm3 (4.00-11.30)
[2022-12-06 10:19] LABS: Albumin, Blood 2.8 g/dL (3.4-5.0); Anion Gap 6 mmol/L (6-16); Blood Urea Nitrogen 33 mg/dL (8-24); Bun/Creatinine Ratio 20.9 (12.0-20.0); CO2, Blood 30 mmol/L (21-32); Calcium, Blood 8.5 mg/dL (8.5-10.1); Chloride, Blood 102 mmol/L (98-108); Creatinine, Blood 1.58 mg/dL (0.60-1.20); Glomerular Filtration Rate 45 (60-); Glucose, Blood 149 mg/dL (70-99); Phosphorus, Blood 2.6 mg/dL (2.5-4.9); Potassium, Blood 4.1 mmol/L (3.5-5.5); Sodium, Blood 138 mmol/L (136-145)
[2022-12-06] MEDS ORDERED: OXAYDO5 M1 PO (14:47)
[2022-12-06] MEDS ORDERED: CEFD300 PO (14:48)
[2022-12-06] MEDS ORDERED: VISBIOME 112.51 EACH PO (14:48)
[2022-12-06] MEDS ORDERED: MIRALAX17 GM PO (14:48)
== END 2022-12-06 15:15 | disposition home or self-care (01) ==
LOC: ER 22:31 → MEDS 22:32 → SURS 12-05 05:46
PROVIDERS: Internal Medicine; Student in an Organized Health Care Education/Training Program; ADMIT Internal Medicine
DX: S32.039A Unspecified fracture of third lumbar vertebra, initial encounter for closed fracture (principal); I50.22 Chronic systolic (congestive) heart failure; J44.9 Chronic obstructive pulmonary disease, unspecified; I48.0 Paroxysmal atrial fibrillation; I35.0 Nonrheumatic aortic (valve) stenosis; W19.XXXA Unspecified fall, initial encounter
CPT/HCPCS: 0241U; 36415; 74177; 80053; 80069; 81001; 85025; 85027; 87086; 93005; 93010; 94640; 94644; 94664; 94760; 96361; 96372; 96374; 96375; 96376; 97110; 97110-CQ; 97162; 97165; 97530; 97530-CQ; 97535; 99285-25; A9270; G0378; J0696; J1650; J2270; J3010; J7030; Q9967

== ENCOUNTER 2022-12-16 21:11 | Emergency (ER) | payer MEDICARE ==
[~2022-12-16] VITALS: Ht 182.9 cm; Wt 54.4 kg
[~2022-12-16 21:11] MED LIST changes: +CEFD300 PO; +MIRALAX17 GM PO; +OXAYDO5 M1 PO; +VISBIOME 112.51 EACH PO
[2022-12-16 22:15] LABS: Source, Urine Clean Catch
[2022-12-16 22:18] LABS: Bilirubin, Urine Neg (Neg); Blood, Urine 5+ (Neg); Glucose Qualitative, Urine Neg (Neg); Ketones, Urine Neg (Neg); Leukocyte Esterase, Urine 1+ (Neg); Nitrite, Urine Neg (Neg); Protein, Urine 3+ (Neg); Specific Gravity, Urine 1.015 (1.003-1.022); Urobilinogen, Urine NORM (Normal)
[2022-12-16 22:27] LABS: Appearance, Urine Hazy (Clear); Color, Urine Yellow (P-Yellow)
[2022-12-16 22:28] LABS: Amorphous Light (0-Heavy); Bacteria Mod /hpf; Red Blood Cells, Urine 50-100 /hpf (0-2); Squamous Epithelial Cells Rare /hpf (Few); Transitional Epithelial Cells Few /hpf (0-Rare); White Blood Cells, Urine 25-50 /hpf (0-5)
[2022-12-16 22:58] LABS: BASOPHILS ABSOLUTE AUTO 0.05 K/mm3 (0.00-0.23); BASOPHILS PERCENT AUTO 0 % (0-2); EOSINOPHILS ABSOLUTE AUTO 0.03 K/mm3 (0.00-0.68); EOSINOPHILS PERCENT AUTO 0 % (0-6); Hematocrit 42.8 % (37.0-53.0); Hemoglobin 13.5 g/dL (13.5-17.5); IMMATURE GRAN ABSOLUTE AUTO 0.07 K/mm3 (0.00-0.10); IMMATURE GRAN PERCENT AUTO 0 % (0-1); LYMPHOCYTES ABSOLUTE AUTO 0.79 K/mm3 (0.84-5.20); LYMPHOCYTES PERCENT AUTO 5 % (21-46); MONOCYTES ABSOLUTE AUTO 1.83 K/mm3 (0.16-1.47); MONOCYTES PERCENT AUTO 11 % (4-13); Mean Corpuscular HGB 28.1 pg (26.0-34.0); Mean Corpuscular HGB Conc 31.5 g/dL (31.5-36.5); Mean Corpuscular Volume 89 fL (80-100); Mean Platelet Volume 11.3 fL (9.1-12.4); NEUTROPHILS PERCENT AUTO 84 % (41-73); Platelet Count 226 K/mm3 (150-400); RDW Coefficient Variation 15.5 % (11.7-14.2); RDW Standard Deviation 51.2 fL (35.1-46.3); White Blood Cell Count 17.47 K/mm3 (4.00-11.30)
[2022-12-16 23:17] LABS: Albumin, Blood 3.2 g/dL (3.4-5.0); Albumin/Globulin Ratio 0.8 (0.8-1.8); Bilirubin, Total 0.5 mg/dL (0.1-1.0); Calcium, Blood 9.3 mg/dL (8.5-10.1); Creatinine, Blood 1.63 mg/dL (0.60-1.20); Globulin, Blood 4.1 g/dL (2.2-4.0); Total Protein, Blood 7.3 g/dL (6.4-8.2)
[2022-12-16] MEDS ORDERED: CEPH500 PO (23:45)
[2022-12-16] MEDS ORDERED: BISA5EC PO (23:45)
[2022-12-16] MEDS ORDERED: MAGCIT300 PO (23:45)
== END 2022-12-16 23:59 | disposition home or self-care (01) ==
LOC: ER 21:11
PROVIDERS: Emergency Medicine
DX: K59.00 Constipation, unspecified (principal); J44.9 Chronic obstructive pulmonary disease, unspecified; I11.0 Hypertensive heart disease with heart failure; I50.9 Heart failure, unspecified; R30.0 Dysuria; F17.210 Nicotine dependence, cigarettes, uncomplicated; M48.56XA Collapsed vertebra, not elsewhere classified, lumbar region, initial encounter for fracture; Z88.5 Allergy status to narcotic agent; Z88.8 Allergy status to other drugs, medicaments and biological substances; Z86.73 Personal history of transient ischemic attack (TIA), and cerebral infarction without residual deficits
CPT/HCPCS: 36415; 51798; 80053; 81001; 83690; 85025; 87086; 94640; 94664; 96374; 99284-25; A9270; J0696

== ENCOUNTER 2022-12-26 23:01 | Emergency (ER) | payer MEDICARE ==
[~2022-12-26] VITALS: Ht 180.3 cm; Wt 50.8 kg
[~2022-12-26 23:01] MED LIST changes: +BISA5EC PO; +MAGCIT300 PO
[2022-12-26 23:44] LABS: BASOPHILS ABSOLUTE AUTO 0.04 K/mm3 (0.00-0.23); BASOPHILS PERCENT AUTO 0 % (0-2); EOSINOPHILS ABSOLUTE AUTO 0.06 K/mm3 (0.00-0.68); EOSINOPHILS PERCENT AUTO 0 % (0-6); Hematocrit 44.7 % (37.0-53.0); Hemoglobin 14.3 g/dL (13.5-17.5); IMMATURE GRAN ABSOLUTE AUTO 0.06 K/mm3 (0.00-0.10); IMMATURE GRAN PERCENT AUTO 0 % (0-1); LYMPHOCYTES ABSOLUTE AUTO 0.86 K/mm3 (0.84-5.20); LYMPHOCYTES PERCENT AUTO 6 % (21-46); MONOCYTES ABSOLUTE AUTO 1.22 K/mm3 (0.16-1.47); MONOCYTES PERCENT AUTO 8 % (4-13); Mean Corpuscular Volume 88 fL (80-100); Mean Platelet Volume 10.3 fL (9.1-12.4); NEUTROPHILS ABSOLUTE AUTO 12.95 K/mm3 (1.96-9.15); NEUTROPHILS PERCENT AUTO 85 % (41-73); Platelet Count 245 K/mm3 (150-400); RDW Coefficient Variation 15.2 % (11.7-14.2); RDW Standard Deviation 49.2 fL (35.1-46.3); White Blood Cell Count 15.19 K/mm3 (4.00-11.30)
[2022-12-27 00:13] LABS: Albumin, Blood 3.3 g/dL (3.4-5.0); Albumin/Globulin Ratio 0.8 (0.8-1.8); Bilirubin, Total 0.6 mg/dL (0.1-1.0); Bun/Creatinine Ratio 25.2 (12.0-20.0); Creatinine, Blood 1.63 mg/dL (0.60-1.20); Globulin, Blood 4.3 g/dL (2.2-4.0); Potassium, Blood 4.6 mmol/L (3.5-5.5); Total Protein, Blood 7.6 g/dL (6.4-8.2)
[2022-12-27 01:31] LABS: Source, Urine Voided
[2022-12-27 01:33] LABS: Bilirubin, Urine Neg (Neg); Blood, Urine 5+ (Neg); Glucose Qualitative, Urine Neg (Neg); Ketones, Urine Neg (Neg); Leukocyte Esterase, Urine 2+ (Neg); Nitrite, Urine Neg (Neg); Protein, Urine 3+ (Neg); Specific Gravity, Urine 1.015 (1.003-1.022); Urobilinogen, Urine NORM (Normal); pH, Urine 6.5 (5.0-8.0)
[2022-12-27 02:20] LABS: Appearance, Urine Cloudy (Clear); Color, Urine Red (P-Yellow)
[2022-12-27 02:22] LABS: Bacteria Few /hpf; Red Blood Cells, Urine TNTC /hpf (0-2); Squamous Epithelial Cells Not Seen /hpf (Few)
== END 2022-12-27 07:41 | disposition home or self-care (01) ==
LOC: ER 23:01
PROVIDERS: Emergency Medicine
DX: R31.9 Hematuria, unspecified (principal); J44.9 Chronic obstructive pulmonary disease, unspecified; I11.0 Hypertensive heart disease with heart failure; I50.9 Heart failure, unspecified; Z88.6 Allergy status to analgesic agent; Z88.5 Allergy status to narcotic agent; Z79.899 Other long term (current) drug therapy; F17.210 Nicotine dependence, cigarettes, uncomplicated
CPT/HCPCS: 36415; 71046; 71250; 80053; 81001; 83880; 84145; 85025; 87086; 94644; 94664; 96374; 96375; 99284-25; J2930; J3010

== ENCOUNTER 2023-01-09 16:00 | Emergency (ER) | payer MEDICARE ==
[~2023-01-09] VITALS: Ht 180.3 cm; Wt 54.4 kg
[2023-01-09] MEDS ORDERED: HYDHCL25 PO (16:10)
[2023-01-09] MEDS ORDERED: OXYCODONE-ACET1 EAC3 PO (16:10)
[2023-01-09 17:07] LABS: Source, Urine Clean Catch
[2023-01-09 17:07] LABS: BASOPHILS ABSOLUTE AUTO 0.02 K/mm3 (0.00-0.23); BASOPHILS PERCENT AUTO 0 % (0-2); EOSINOPHILS ABSOLUTE AUTO 0.06 K/mm3 (0.00-0.68); EOSINOPHILS PERCENT AUTO 1 % (0-6); Hemoglobin 12.5 g/dL (13.5-17.5); IMMATURE GRAN ABSOLUTE AUTO 0.07 K/mm3 (0.00-0.10); IMMATURE GRAN PERCENT AUTO 1 % (0-1); LYMPHOCYTES ABSOLUTE AUTO 0.74 K/mm3 (0.84-5.20); LYMPHOCYTES PERCENT AUTO 6 % (21-46); MONOCYTES ABSOLUTE AUTO 1.07 K/mm3 (0.16-1.47); MONOCYTES PERCENT AUTO 9 % (4-13); Mean Corpuscular HGB 27.6 pg (26.0-34.0); Mean Corpuscular HGB Conc 31.3 g/dL (31.5-36.5); Mean Corpuscular Volume 88 fL (80-100); Mean Platelet Volume 10.5 fL (9.1-12.4); NEUTROPHILS ABSOLUTE AUTO 10.51 K/mm3 (1.96-9.15); NEUTROPHILS PERCENT AUTO 84 % (41-73); Platelet Count 237 K/mm3 (150-400); RDW Coefficient Variation 15.2 % (11.7-14.2); RDW Standard Deviation 49.9 fL (35.1-46.3); Red Blood Cell Count 4.53 M/mm3 (4.30-5.90); White Blood Cell Count 12.47 K/mm3 (4.00-11.30)
[2023-01-09 17:21] LABS: Appearance, Urine Hazy (Clear); Bilirubin, Urine Neg (Neg); Blood, Urine 3+ (Neg); Color, Urine Yellow (P-Yellow); Glucose Qualitative, Urine Neg (Neg); Ketones, Urine Neg (Neg); Leukocyte Esterase, Urine Neg (Neg); Nitrite, Urine Neg (Neg); Protein, Urine 2+ (Neg); Urobilinogen, Urine NORM (Normal)
[2023-01-09 17:36] LABS: Bacteria Mod /hpf; Renal Epithelial Rare /hpf (0-Rare); Squamous Epithelial Cells Not Seen /hpf (Few); Transitional Epithelial Cells Rare /hpf (0-Rare)
[2023-01-09] MEDS ORDERED: CIPR500 PO (18:06)
[2023-01-09 18:23] LABS: Albumin, Blood 2.7 g/dL (3.4-5.0); Albumin/Globulin Ratio 0.8 (0.8-1.8); Bilirubin, Total 0.4 mg/dL (0.1-1.0); Bun/Creatinine Ratio 31.8 (12.0-20.0); Calcium, Blood 8.2 mg/dL (8.5-10.1); Creatinine, Blood 1.29 mg/dL (0.60-1.20); Globulin, Blood 3.4 g/dL (2.2-4.0); Potassium, Blood 4.4 mmol/L (3.5-5.5); Total Protein, Blood 6.1 g/dL (6.4-8.2)
== END 2023-01-09 20:30 | disposition home or self-care (01) ==
LOC: ER 16:00
PROVIDERS: Emergency Medicine
DX: N39.0 Urinary tract infection, site not specified (principal); J44.9 Chronic obstructive pulmonary disease, unspecified; I11.0 Hypertensive heart disease with heart failure; I50.9 Heart failure, unspecified; F17.210 Nicotine dependence, cigarettes, uncomplicated
CPT/HCPCS: 80053; 81001; 85025; 94640; 94664

== ENCOUNTER → 2023-03-23 | Outpatient (CLI) | payer MEDICARE ==
[~2023-03-23] MED LIST changes: +CIPR500 PO; +HYDHCL25 PO; +OXYCODONE-ACET1 EAC3 PO
[2023-03-23 13:57] LABS: Hematocrit 44.5 % (37.0-53.0); Hemoglobin 14.2 g/dL (13.5-17.5); Mean Corpuscular HGB 28.7 pg (26.0-34.0); Mean Corpuscular HGB Conc 31.9 g/dL (31.5-36.5); Mean Corpuscular Volume 90 fL (80-100); Mean Platelet Volume 11.6 fL (9.1-12.4); Platelet Count 240 K/mm3 (150-400); RDW Standard Deviation 52.7 fL (35.1-46.3); Red Blood Cell Count 4.95 M/mm3 (4.30-5.90); White Blood Cell Count 12.91 K/mm3 (4.00-11.30)
[2023-03-23 14:06] LABS: Bun/Creatinine Ratio 33.7 (12.0-20.0); Calcium, Blood 9.4 mg/dL (8.5-10.1); Creatinine, Blood 2.02 mg/dL (0.60-1.20); Potassium, Blood 4.1 mmol/L (3.5-5.5)
[2023-03-23 15:17] LABS: BAND PERCENT MAN 18 % (0-8); BASOPHILS PERCENT MAN 0 % (0-2); EOSINOPHILS PERCENT MAN 0 % (0-6); LYMPHOCYTES ABSOLUTE MAN 0.25 K/mm3 (0.84-5.20); LYMPHOCYTES PERCENT MAN 2 % (21-46); MONOCYTES PERCENT MAN 14 % (4-13); NEUTROPHILS ABSOLUTE MAN 10.84 K/mm3 (1.96-9.15); SEG NEUTROPHILS PERCENT MAN 66 % (41-73); TOTAL CELLS COUNTED 100
== END | disposition home or self-care (01) ==
LOC: LAB SHORT 13:51 → LAB 13:51
PROVIDERS: Physician Assistant Surgical
DX: R06.00 Dyspnea, unspecified (principal)
CPT/HCPCS: 80048; 83880; 85025

== ENCOUNTER 2023-10-18 04:15 | Emergency (ER) | payer MEDICARE ==
[~2023-10-18] VITALS: Ht 180.3 cm; Wt 54.4 kg
[2023-10-18 04:51] LABS: Source, Urine Foley catheter
[2023-10-18 04:59] LABS: Appearance, Urine Hazy (Clear); Bilirubin, Urine Neg (Neg); Blood, Urine 5+ (Neg); Color, Urine Yellow (P-Yellow); Glucose Qualitative, Urine Neg (Neg); Ketones, Urine Neg (Neg); Leukocyte Esterase, Urine 2+ (Neg); Nitrite, Urine Neg (Neg); Protein, Urine 3+ (Neg); Specific Gravity, Urine 1.015 (1.003-1.022); Urobilinogen, Urine NORM (Normal)
[2023-10-18] MEDS ORDERED: Acetaminophen650 M1 PO (05:01)
[2023-10-18] MEDS ORDERED: ELLURA200 MG PO (05:01)
[2023-10-18 05:10] LABS: BASOPHILS ABSOLUTE AUTO 0.03 K/mm3 (0.00-0.23); BASOPHILS PERCENT AUTO 0 % (0-2); EOSINOPHILS ABSOLUTE AUTO 0.01 K/mm3 (0.00-0.68); EOSINOPHILS PERCENT AUTO 0 % (0-6); Hematocrit 44.3 % (37.0-53.0); Hemoglobin 13.4 g/dL (13.5-17.5); IMMATURE GRAN ABSOLUTE AUTO 0.13 K/mm3 (0.00-0.10); IMMATURE GRAN PERCENT AUTO 1 % (0-1); LYMPHOCYTES ABSOLUTE AUTO 0.57 K/mm3 (0.84-5.20); LYMPHOCYTES PERCENT AUTO 3 % (21-46); MONOCYTES ABSOLUTE AUTO 2.21 K/mm3 (0.16-1.47); MONOCYTES PERCENT AUTO 10 % (4-13); Mean Corpuscular HGB 28.2 pg (26.0-34.0); Mean Corpuscular HGB Conc 30.2 g/dL (31.5-36.5); Mean Corpuscular Volume 93 fL (80-100); Mean Platelet Volume 10.9 fL (9.1-12.4); NEUTROPHILS ABSOLUTE AUTO 18.41 K/mm3 (1.96-9.15); NEUTROPHILS PERCENT AUTO 86 % (41-73); Platelet Count 256 K/mm3 (150-400); RDW Coefficient Variation 15.6 % (11.7-14.2); RDW Standard Deviation 53.2 fL (35.1-46.3); Red Blood Cell Count 4.76 M/mm3 (4.30-5.90); White Blood Cell Count 21.36 K/mm3 (4.00-11.30)
[2023-10-18 05:18] LABS: Bacteria Many /hpf; Red Blood Cells, Urine TNTC /hpf (0-2); Squamous Epithelial Cells Mod /hpf (Few); White Blood Cells, Urine 25-50 /hpf (0-5)
[2023-10-18 05:32] LABS: Bun/Creatinine Ratio 34.9 (12.0-20.0); Calcium, Blood 8.6 mg/dL (8.5-10.1); Creatinine, Blood 1.92 mg/dL (0.60-1.20); Potassium, Blood 5.8 mmol/L (3.5-5.5)
[2023-10-18] MEDS ORDERED: CEPH500 PO (05:46)
[2023-10-18 05:51] VITALS: BP 124/84
== END 2023-10-18 05:51 | disposition home or self-care (01) ==
LOC: ER 04:15
PROVIDERS: Emergency Medicine
DX: N39.0 Urinary tract infection, site not specified (principal); Z46.6 Encounter for fitting and adjustment of urinary device; I11.0 Hypertensive heart disease with heart failure; I50.9 Heart failure, unspecified; J44.9 Chronic obstructive pulmonary disease, unspecified; N19 Unspecified kidney failure; M81.0 Age-related osteoporosis without current pathological fracture; Z86.73 Personal history of transient ischemic attack (TIA), and cerebral infarction without residual deficits; F17.210 Nicotine dependence, cigarettes, uncomplicated; Z79.899 Other long term (current) drug therapy; Z88.5 Allergy status to narcotic agent; Z88.6 Allergy status to analgesic agent; Z88.8 Allergy status to other drugs, medicaments and biological substances
CPT/HCPCS: 51702; 51798; 80048; 81001; 85025; 87086; 99283-25; A9270

== ENCOUNTER 2023-10-18 13:06 | Emergency (ER) | payer MEDICARE ==
[~2023-10-18] VITALS: Ht 180.3 cm; Wt 52.2 kg
[~2023-10-18 13:06] MED LIST changes: +Acetaminophen650 M1 PO; +ELLURA200 MG PO
[2023-10-18 13:59] VITALS: BP 132/93
== END 2023-10-18 14:31 | disposition home or self-care (01) ==
LOC: ER 13:06
DX: T83.031A Leakage of indwelling urethral catheter, initial encounter (principal); Z88.5 Allergy status to narcotic agent; Z88.6 Allergy status to analgesic agent; Z79.899 Other long term (current) drug therapy; J44.9 Chronic obstructive pulmonary disease, unspecified; I11.0 Hypertensive heart disease with heart failure; I50.9 Heart failure, unspecified; F17.210 Nicotine dependence, cigarettes, uncomplicated
CPT/HCPCS: 99282

== ENCOUNTER 2023-10-21 11:35 | Emergency (ER) | payer MEDICARE ==
[~2023-10-21] VITALS: Ht 177.8 cm; Wt 52.2 kg
[2023-10-21 13:14] LABS: Source, Urine Foley catheter
[2023-10-21 13:17] LABS: Appearance, Urine Turbid (Clear); BASOPHILS ABSOLUTE AUTO 0.01 K/mm3 (0.00-0.23); BASOPHILS PERCENT AUTO 0 % (0-2); Bilirubin, Urine Neg (Neg); Blood, Urine 5+ (Neg); Color, Urine Red (P-Yellow); EOSINOPHILS ABSOLUTE AUTO 0.02 K/mm3 (0.00-0.68); EOSINOPHILS PERCENT AUTO 0 % (0-6); Glucose Qualitative, Urine Neg (Neg); Hematocrit 41.6 % (37.0-53.0); Hemoglobin 12.7 g/dL (13.5-17.5); IMMATURE GRAN ABSOLUTE AUTO 0.04 K/mm3 (0.00-0.10); IMMATURE GRAN PERCENT AUTO 0 % (0-1); Ketones, Urine Neg (Neg); LYMPHOCYTES ABSOLUTE AUTO 0.45 K/mm3 (0.84-5.20); LYMPHOCYTES PERCENT AUTO 4 % (21-46); Leukocyte Esterase, Urine Neg (Neg); MONOCYTES ABSOLUTE AUTO 1.04 K/mm3 (0.16-1.47); MONOCYTES PERCENT AUTO 8 % (4-13); Mean Corpuscular HGB 27.7 pg (26.0-34.0); Mean Corpuscular HGB Conc 30.5 g/dL (31.5-36.5); Mean Corpuscular Volume 91 fL (80-100); Mean Platelet Volume 10.7 fL (9.1-12.4); NEUTROPHILS ABSOLUTE AUTO 11.02 K/mm3 (1.96-9.15); NEUTROPHILS PERCENT AUTO 88 % (41-73); Nitrite, Urine Neg (Neg); Platelet Count 236 K/mm3 (150-400); Protein, Urine 4+ (Neg); RDW Coefficient Variation 15.7 % (11.7-14.2); RDW Standard Deviation 51.4 fL (35.1-46.3); Red Blood Cell Count 4.58 M/mm3 (4.30-5.90); Specific Gravity, Urine 1.015 (1.003-1.022); Urobilinogen, Urine NORM (Normal); White Blood Cell Count 12.58 K/mm3 (4.00-11.30)
[2023-10-21 13:27] LABS: Red Blood Cells, Urine TNTC /hpf (0-2); Squamous Epithelial Cells Rare /hpf (Few); White Blood Cells, Urine 25-50 /hpf (0-5)
[2023-10-21 13:29] LABS: Bacteria Few /hpf
[2023-10-21 13:36] LABS: Bun/Creatinine Ratio 42.4 (12.0-20.0); Calcium, Blood 8.2 mg/dL (8.5-10.1); Creatinine, Blood 1.39 mg/dL (0.60-1.20); Potassium, Blood 4.8 mmol/L (3.5-5.5)
[2023-10-21 14:16] VITALS: BP 139/104
== END 2023-10-21 14:16 | disposition home or self-care (01) ==
LOC: ER 11:35
PROVIDERS: Emergency Medicine
DX: N39.0 Urinary tract infection, site not specified (principal); R31.0 Gross hematuria; R33.9 Retention of urine, unspecified; I11.0 Hypertensive heart disease with heart failure; I50.9 Heart failure, unspecified; J44.9 Chronic obstructive pulmonary disease, unspecified; F17.210 Nicotine dependence, cigarettes, uncomplicated; Z88.5 Allergy status to narcotic agent; Z88.6 Allergy status to analgesic agent; Z88.8 Allergy status to other drugs, medicaments and biological substances; Z79.899 Other long term (current) drug therapy
CPT/HCPCS: 51700; 51702; 51798; 80048; 81001; 85025; 99283-25

== ENCOUNTER → 2023-10-24 | Outpatient (CLI) | payer MEDICARE | LOC: LAB 15:35 → LAB SHORT 15:35 | DX: N39.0 Urinary tract infection, site not specified (principal) | CPT/HCPCS: 87086 ==

== ENCOUNTER → 2023-10-24 | Outpatient (CLI) | payer MEDICARE ==
[2023-10-24 13:55] LABS: Protein, Urine Quantitative 344.8 mg/dL (0.0-11.9)
== END | disposition home or self-care (01) ==
LOC: LAB 10:00 → LAB SHORT 10:00 → EDSTATUS 10-22 10:30 → LAB FUT 10-22 10:30
PROVIDERS: Internal Medicine Nephrology
DX: N18.30 Chronic kidney disease, stage 3 unspecified (principal); N25.81 Secondary hyperparathyroidism of renal origin; E55.9 Vitamin D deficiency, unspecified; E78.00 Pure hypercholesterolemia, unspecified; R76.9 Abnormal immunological finding in serum, unspecified; R94.6 Abnormal results of thyroid function studies
CPT/HCPCS: 81050; 82043; 84156; 84300

== ENCOUNTER → 2023-10-29 | Outpatient (CLI) | payer MEDICARE | END | disposition home or self-care (01) | LOC: LAB SHORT 13:02 → LAB 13:02 | DX: T83.9XXA Unspecified complication of genitourinary prosthetic device, implant and graft, initial encounter (principal); R82.79 Other abnormal findings on microbiological examination of urine | CPT/HCPCS: 87086 ==

== ENCOUNTER 2023-12-08 10:12 | Inpatient (IN) | payer MEDICARE ==
[~2023-12-08] VITALS: Ht 180.3 cm; Wt 42.2 kg
[2023-12-08] MEDS ORDERED: Ipratropium/Albuterol SulF 2.5-0.5MG/3 ML Amp INH ONE (11:15)
[2023-12-08 11:18] LABS: BASOPHILS ABSOLUTE AUTO 0.05 K/mm3 (0.00-0.23); BASOPHILS PERCENT AUTO 0 % (0-2); EOSINOPHILS PERCENT AUTO 0 % (0-6); Hematocrit 40.4 % (37.0-53.0); Hemoglobin 11.9 g/dL (13.5-17.5); IMMATURE GRAN ABSOLUTE AUTO 0.15 K/mm3 (0.00-0.10); IMMATURE GRAN PERCENT AUTO 1 % (0-1); LYMPHOCYTES ABSOLUTE AUTO 0.37 K/mm3 (0.84-5.20); LYMPHOCYTES PERCENT AUTO 1 % (21-46); MONOCYTES ABSOLUTE AUTO 1.65 K/mm3 (0.16-1.47); MONOCYTES PERCENT AUTO 6 % (4-13); Mean Corpuscular HGB 26.6 pg (26.0-34.0); Mean Corpuscular HGB Conc 29.5 g/dL (31.5-36.5); Mean Corpuscular Volume 90 fL (80-100); Mean Platelet Volume 10.5 fL (9.1-12.4); NEUTROPHILS ABSOLUTE AUTO 23.42 K/mm3 (1.96-9.15); NEUTROPHILS PERCENT AUTO 91 % (41-73); Platelet Count 264 K/mm3 (150-400); RDW Coefficient Variation 15.1 % (11.7-14.2); RDW Standard Deviation 50.1 fL (35.1-46.3); Red Blood Cell Count 4.47 M/mm3 (4.30-5.90); White Blood Cell Count 25.64 K/mm3 (4.00-11.30)
[2023-12-08 11:35] LABS: Albumin, Blood 2.2 g/dL (3.4-5.0); Albumin/Globulin Ratio 0.4 (0.8-1.8); Bilirubin, Total 0.8 mg/dL (0.1-1.0); Bun/Creatinine Ratio 46.3 (12.0-20.0); Calcium, Blood 9.3 mg/dL (8.5-10.1); Creatinine, Blood 1.36 mg/dL (0.60-1.20); Total Protein, Blood 7.2 g/dL (6.4-8.2)
[2023-12-08] MEDS ORDERED: CefTRIAXone Sodium 1,000 MG in NS 50 ML IV ONE (12:20)
[2023-12-08] MEDS ORDERED: Azithromycin 500 MG in NS 250 ML IV ONE (13:00)
[2023-12-08] MEDS ORDERED: Acetaminophen 325 MG TABLET PO PRN (13:35)
[2023-12-08] MEDS ORDERED: FLU VACC QS2023-24(6MOS UP)/PF 60 MCG/0.5 ML SYRINGE IM PRN (13:35)
[2023-12-08 13:55] LABS: Influenza A, PCR NEGATIVE (NEGATIVE); Influenza B, PCR NEGATIVE (NEGATIVE); Resp Syncytial Virus, PCR NEGATIVE (NEGATIVE); SARS-Cov-2 (COVID-19) PCR, MMC NEGATIVE (NEGATIVE)
[2023-12-08] MEDS ORDERED: Albuterol 2.5 MG/3 ML VIAL INH PRN (14:30)
[2023-12-08 18:32] VITALS: BP 102/65
[2023-12-08 18:33] VITALS: BP 102/65
--- NOTE | 2023-12-08 19:22 | NUR ---
PT ADMITTED TO FLOOR JUST PRIOR TO 1800. STATES FFELT UNBLE TO STAND TO TRANSFER FROM [facility] TO BED. HE IS CACHECTIC. MULT WOUNDS NOTED AND PICS TAKEN. FEET, OLMOS, UPPER LEFT ARM. PENIS, SCROTUM, SACCRAL, COCCYX. LEGS. PT A/O TO SELF AND WORK HISTORY. 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 NO TEETH. CHANGED DIDT TO SOFT MOIST MINCED. STATES UNABLE TO EAT SANDWICH. H/R DISTANT. NO PCER NOTED. PER TELE NSR AT 95. LUNGS COARSE AND LIGHTLY WHEEZY.CALLED RT FOR BREATHING TREATMENT TWICE. STATES WILL BE HERE SOON. ON 6L O2 TO KEEP >90%. RESP ABOUT 30. MOUTH BREATHING, STATES HARD TO FOCUS ON BREATHING THRU HIS NOSE. HANDS AND FEET BLUE TINGED. NO PEDAL PULSE NOTED. MULT WOUNDS ON FEET. BT X4 LAST BM YEST PER PT. VOIDS URINAL. BED IN LOW POSITION, CALL LITE IN REACH BED ALARM ON FOR SAFETY.
[2023-12-08 19:33] VITALS: BP 110/67
[2023-12-08] MEDS ORDERED: Lactobacil 2-S.Thermo-Bifido 1 1 Cap PO SCH (21:00)
[2023-12-09 02:31] VITALS: BP 106/75
--- NOTE | 2023-12-09 03:41 | NUR ---
SHIFT SUMMARY PT A&O TO SELF, PERSON, PLACE. UNABLE TO STATE DATE. [place] WITH MUMMBLED SPEECH. UNABLE TO UNDERSTAND PT AT TIMES. PT HAS DENTURES BUT STATES THEY DO NOT FIT WELL AND ARE UNCOMFORTABLE. PT USES URINAL IND. 1P ASSIST WITH FWW AND GB. PT SMELLED OF URINE/FECES AND LIVES IN HIS VAN. PT GIVEN SHOWER THIS SHIFT. CURRENTLY ON 2L OF 02 VIA KS. CALLED RT FOR BREATHING TREATMENT. MULTIPLE WOUNDS--SEE PICS IN CHART AND SKIN ASSESSMENT. PRESSURE ULCER TO COCCYX/SACRAL AREA. MEPILEX APPLIED TO SACRUM. HEAL PROTECTORS PLACED FOR PROTECTION. PT HAD DUCT TAPE AROUND EVER TOE. UNCOVERED. PT HAS SKIN TEARS ON TOPS OF TOES, CRACKS BETWEEN TOES, RED-PURPLE COLD FEET. TOENAILS ARE VERY LONG AND THICK DIGGING INTO PT SKIN. PT IS CATHETIC. PLACED EGG CRATE ON PT BED. PT DENIED NEEDING PAIN MEDICATION. OFFERED NICOTINE REPLACEMENT AND PT DENIED AT THIS TIME. BED KEPT IN LOWEST POSIITON WITH CALL LIGHT WITHIN REACH. PT CALLS APPROPRAITELY FOR NEEDS. DAUGHTER DIANE CALLED TO CHECK ON PT. INFORMED PT OF HER CALL.
[2023-12-09 05:42] LABS: BASOPHILS ABSOLUTE AUTO 0.03 K/mm3 (0.00-0.23); BASOPHILS PERCENT AUTO 0 % (0-2); EOSINOPHILS PERCENT AUTO 0 % (0-6); Hemoglobin 11.2 g/dL (13.5-17.5); IMMATURE GRAN ABSOLUTE AUTO 0.13 K/mm3 (0.00-0.10); IMMATURE GRAN PERCENT AUTO 1 % (0-1); LYMPHOCYTES ABSOLUTE AUTO 0.31 K/mm3 (0.84-5.20); LYMPHOCYTES PERCENT AUTO 1 % (21-46); MONOCYTES ABSOLUTE AUTO 1.13 K/mm3 (0.16-1.47); MONOCYTES PERCENT AUTO 5 % (4-13); Mean Corpuscular HGB 27.1 pg (26.0-34.0); Mean Corpuscular HGB Conc 30.3 g/dL (31.5-36.5); Mean Corpuscular Volume 89 fL (80-100); Mean Platelet Volume 10.9 fL (9.1-12.4); NEUTROPHILS PERCENT AUTO 94 % (41-73); Platelet Count 263 K/mm3 (150-400); RDW Coefficient Variation 15.1 % (11.7-14.2); RDW Standard Deviation 49.5 fL (35.1-46.3); Red Blood Cell Count 4.14 M/mm3 (4.30-5.90)
[2023-12-09 06:04] LABS: Bun/Creatinine Ratio 49.4 (12.0-20.0); Calcium, Blood 9.1 mg/dL (8.5-10.1); Creatinine, Blood 1.6 mg/dL (0.60-1.20)
[2023-12-09 07:08] VITALS: BP 112/71
[2023-12-09] MEDS ORDERED: NS 250 ML IV PRN (07:50)
[2023-12-09] MEDS ORDERED: CefTRIAXone Sodium 1,000 MG in NS 50 ML IV SCH (09:00)
[2023-12-09] MEDS ORDERED: Enoxaparin 30 MG/0.3 ML SYR SC SCH (09:00)
[2023-12-09] MEDS ORDERED: Azithromycin 500 MG in NS 250 ML IV SCH (09:00)
[2023-12-09] MEDS ORDERED: Insulin Regular 100 UNIT/ML 10ML Vial SC SCH (11:30)
[2023-12-09] MEDS ORDERED: Arginine/Glutamine/Calcium Hmb 1 Packet PO SCH (12:15)
[2023-12-09] MEDS ORDERED: Morphine Sulfate 20 MG/1ML 1 ML Oral Syringe SL PRN (14:15)
[2023-12-09] MEDS ORDERED: Scopolamine Hydrobromide Patch TOP PRN (14:15)
[2023-12-09] MEDS ORDERED: Ondansetron HCl 2 MG / ML 2ML Vial IV PRN (14:15)
[2023-12-09] MEDS ORDERED: LORazepam 2 MG/ML 1ML Injection IV PRN (14:15)
[2023-12-09] MEDS ORDERED: Atropine Sulfate 1% Opth Soln 2ML BTL SL PRN (14:15)
[2023-12-09] MEDS ORDERED: LORazepam 1 MG Tab PO PRN (14:15)
--- NOTE | 2023-12-09 14:41 | NUR ---
PALLATIVE CARE- MET WITH PATIENT AND FAMILY. THEY REPORETED A SIGNIFICANT DECLINE IN [employer]. WE DISCUSSED COMFORT CARE AND HOSPICE WITH THE PATIENT AND FAMILY AND THEY WERE AGREEABLE TO THIS COURSE OF ACTION. I CALLED AND DISCUSSED THIS WITH PROVIDER AND TRANSITIONED PATIENT TO COMFORT CARE.
--- NOTE | 2023-12-09 17:57 | NUR ---
SHIFT SUMMARY: TRANSITIONED TO COMFORT CARE TODAY. WOB BECOMING MORE LABORED, STILL ON O2 @ 2 L/MIN NC (IN HIS MOUTH HE IS A MOUTH BREATHER), HAVING PERIODS OF APNEA AND BREATHING IS SHALLOW. AROUSES TO SPEECH BRIEFLY. HAS GENERALIZED PAIN, MEDICATED PER EMAR. APPETITE THIS MORNING OK, IS NOT EATING DINNER. FAMILY VISITED FOR A SHORT TIME.
--- NOTE | 2023-12-09 23:44 | NUR ---
ATROPINE ADMINISTERED PT RASPING WITH SHORT, LABORED BREATHS. DAUGHTER IN ROOM WITH HIM. ADMINISTERED ATROPINE (3 DROPS SUBLINGUAL PER EMAR) IN CONJUNCTION WITH COMFORT CARE.
--- NOTE | 2023-12-10 05:54 | NUR ---
SHIFT SUMMARY PT SLEEPING THROUGH NIGHT. COMFORT CARE CHECKS Q4 REVEALED NO CHANGES IN PT STATUS. PT CONTINUES TO TAKE RAPID, SHALLOW BREATHS WITH LONGER APNEIC EPISODES. SOMETIMES SPANNING OVER 5 SECONDS. NO SIGNS OF PHYSICAL PAIN. HE CONTINUES TO REMAIN IN STATE OF UNRESPONSIVENESS. WILL CONTINUE TO MONITOR. NASAL CANULA IN MOUTH SO PT CAN BENEFIT FROM O2 DELIVARY. PUPILS SMALL BUT RESPONSIVE. DAUGHTER AT BEDSIDE THROUGH NIGHT.
--- NOTE | 2023-12-10 08:20 | NUR ---
PATIENT AT 809. DAUGHTER HERLINDA AT BEDSIDE, WILL NOTIFY FAMILY. NO MORTUARY CHOSEN YET. DR. HOLM AND CONTRACTING MANAGER Elier ALEJANDRO NOTIFIED.
[2023-12-10] MEDS ORDERED: Fluticasone 0.05% Nasal Spray SCH (09:00)
--- NOTE | 2023-12-10 12:01 | NUR ---
PATIENT DISCHARGED TO [facility] IN [place]. OFF UNIT VIA [facility] AT 1140, ATTENDANT WAS KIZZY GARIBAY. PT'S CLOTHING NOT PICKED UP BY FAMILY, WILL GO TO [facility] AND FAMILY TO BE NOTIFIED.
== END 2023-12-10 08:10 | DRG 193 ==
LOC: ER 10:12 → MEDS 13:34
PROVIDERS: Emergency Medicine; Student in an Organized Health Care Education/Training Program; ADMIT Family Medicine
DX: J18.9 Pneumonia, unspecified organism (principal); E43 Unspecified severe protein-calorie malnutrition; J96.01 Acute respiratory failure with hypoxia; J44.1 Chronic obstructive pulmonary disease with (acute) exacerbation; J44.0 Chronic obstructive pulmonary disease with (acute) lower respiratory infection; E87.1 Hypo-osmolality and hyponatremia; I13.0 Hypertensive heart and chronic kidney disease with heart failure and stage 1 through stage 4 chronic kidney disease, or unspecified chronic kidney disease; N17.9 Acute kidney failure, unspecified; Z68.1 Body mass index [BMI] 19.9 or less, adult; Z51.5 Encounter for palliative care; D63.1 Anemia in chronic kidney disease; N18.30 Chronic kidney disease, stage 3 unspecified; I73.9 Peripheral vascular disease, unspecified; I35.0 Nonrheumatic aortic (valve) stenosis; I27.20 Pulmonary hypertension, unspecified; I50.9 Heart failure, unspecified; R62.7 Adult failure to thrive; L89.152 Pressure ulcer of sacral region, stage 2; F41.9 Anxiety disorder, unspecified; L98.499 Non-pressure chronic ulcer of skin of other sites with unspecified severity; M25.511 Pain in right shoulder; M54.9 Dorsalgia, unspecified; W17.89XA Other fall from one level to another, initial encounter; M81.0 Age-related osteoporosis without current pathological fracture; F17.210 Nicotine dependence, cigarettes, uncomplicated; Z86.73 Personal history of transient ischemic attack (TIA), and cerebral infarction without residual deficits; Z11.52 Encounter for screening for COVID-19
CPT/HCPCS: 0241U; 36415; 71045; 73030; 80048; 80053; 82947; 83036; 83605; 83880; 84484; 85025; 93005; 93010; 93306; 94640; 94664; 94760; 96365; 96375; 97110; 97161; 97530; 99285-25; A9270; J0456; J0696; J1650; J2060; J7050